=== PATIENT | female | born 1985 | race Caucasian/White ===

== ENCOUNTER 2023-01-16 16:08 | Outpatient (AMB) | payer OTHER, SELFPAY ==
--- NOTE | 2023-01-16 16:29 | AM.OFFWIN_ITS ---
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 She is active . Woke up this morning with redness in the right eye. Mucoid discharge from the eye. Does not wear contact lenses. Does not report any blurring of vision. PFSH Social History Patient Tobacco Use Status: Never used Tobacco Physical Exam Vital Signs: Last Vital Signs Temp 97.9 F 01/16/23 16:33 Pulse 91 01/16/23 16:33 BP 120/72 01/16/23 16:33 Pulse Ox 98 01/16/23 16:33 Oxygen Delivery Method Room Air 01/16/23 16:33 BMI result Body Mass Index 28.3 Eyes Other: Right eye: Bulbar conjunctiva is congested, cornea is clear. AC is clear. No digital tenderness. Assessment & Plan Assessment & Plan (1) Conjunctivitis: Code(s): H10.9 - Unspecified conjunctivitis Plan: Erythromycin oph ointment has been prescribed. If sx do not improve to follow up here. Medications: New erythromycin 0.5 inches ophthalmic (eye) TID 1 g 0RF Coding Level of Care Code Est Pt Level 3 (32229) Diagnoses Conjunctivitis H10.9
[2023-01-16 16:33] VITALS: BP 120/72; PULSE 91; TEMP 36.6; O2SAT 98; BMI 28.3
== END 2023-01-16 16:47 | disposition home or self-care (01) ==
PROVIDERS: Visit Provider Internal Medicine
DX: H10.9 Unspecified conjunctivitis (principal)
CPT/HCPCS: 99213

== ENCOUNTER 2023-01-18 15:35 | Outpatient (AMB) | payer OTHER, SELFPAY ==
[2023-01-18 16:02] VITALS: BP 120/70; PULSE 84; TEMP 36.9; O2SAT 99; BMI 28.0
--- NOTE | 2023-01-18 16:02 | MHC.OFFWIV ---
Intake Vital Signs 01/18/23 16:02 Height 5 ft 7 in Weight 179 lb BMI 28.0 BP 120/70 Blood Pressure Location Rt brachial Position Sitting Pulse 84 Pulse Source Pulse Oximeter Temp 98.5 F Temp Source Temporal Artery Scan Pulse Oximetry (%) 99 Oxygen Delivery Method Room Air Intake Visit Reasons: EST/congestion, coughing up blood(lobby) Intake Note: pt is here today for congestion,coughing up blood started yesterday but been sick since last Patient Tobacco Use Status: Never used Tobacco Allergies No Known Allergies Allergy (Verified 01/18/23 16:04) Do you need a note to return to daycare/school/sports/work: Yes HPI HPI Comments History of Present Illness Details The patient presents to urgent care for evaluation of cold symptoms x1 week. She states that she has nasal congestion, runny nose cough and is concerned about her asthma. The cough is keeping her up at night no recent fever chills. PFSH Social History Patient Tobacco Use Status: Never used Tobacco Review of Systems Const Reports body aches, Reports fatigue, Reports headache(s) and Reports malaise ENT Denies dizziness, Reports headache(s), Reports nasal congestion and Reports sore throat Card Denies rapid heart rate, Denies dyspnea and Denies dyspnea on exertion Resp Denies dyspnea and Denies dyspnea on exertion GI Denies dyspepsia and Denies heartburn Musc Denies arthralgias and Denies muscle cramps Neuro Denies dizziness, Reports headache(s), Denies focal weakness and Denies Other visual disturbances Endo Reports fatigue Physical Exam Vital Signs: Last Vital Signs Temp 98.5 F 01/18/23 16:02 Pulse 84 01/18/23 16:02 BP 120/70 01/18/23 16:02 Pulse Ox 99 01/18/23 16:02 Oxygen Delivery Method Room Air 01/18/23 16:02 BMI result Body Mass Index 28.0 Const General: healthy appearing and no acute distress HEENT Mouth: Normal oral and palatal mucosa present Resp Effort & Inspection: normal respiratory effort and able to speak in complete sentences Auscultation: clear to auscultation bilaterally Cardio Rate: regular rate Rhythm: regular rhythm Assessment & Plan Assessment & Plan (1) URI (upper respiratory infection): Code(s): J06.9 - Acute upper respiratory infection, unspecified Plan A/P - URI Discussed etiology of URI and lack of role of antibiotics in treating viral illnesses. Discussed typical course of illness and supportive measures. Fluids, rest, motrin or tylenol prn fevers/myalgias. OK to use sudafed for congestion and cough. Will prescribe cough suppressant Medications: New benzonatate 100 mg PO TID PRN 14 caps 0RF cough codeine-guaifenesin 10-100 mg/5 mL 5 mL PO Q6H PRN 120 mL 0RF allergy symptoms Coding Level of Care Code Est Pt Level 3 (29227) Diagnoses URI (upper respiratory infection) J06.9
== END 2023-01-18 17:02 | disposition home or self-care (01) ==
PROVIDERS: Visit Provider Emergency Medicine
DX: J06.9 Acute upper respiratory infection, unspecified (principal)
CPT/HCPCS: 99213

== ENCOUNTER 2024-01-29 14:54 | Outpatient (AMB) | payer OTHER, SELFPAY ==
--- NOTE | 2024-01-29 15:15 | A.OFFPC_ITS ---
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 Intake Note: establish care Is last menstrual period known: Yes Last menstrual period: 01/31/24 Post menopausal: No Patient : No Allergies acetaminophen [From Vicodin] Allergy (Mild, Verified 01/29/24 15:17) Rash hydrocodone [From Vicodin] Allergy (Mild, Verified 01/29/24 15:17) Rash Penicillins Allergy (Verified 01/29/24 15:17) Hallucinations Medication List - Last Reconciled 01/29/24 by Ranulfo River MD albuterol sulfate 90 mcg/actuation 2 puffs inhalation Q4H PRN cetirizine 10 mg PO DAILY fluticasone propionate 44 mcg/actuation 2 puffs inhalation BID montelukast 10 mg PO DAILY Tobacco use date assessed: 01/29/24 Dental Screening Dental Screen Date: 01/29/24 Did you have a dental visit in the last 12 months?: Yes Did you have a dental problem in the last 6 months where you did not have access to dental care?: No Was dental information given to patient?: Patient has dentist HPI 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 ?? [facility]. Last office visit/CPE:? 1 yr Acute issue(s):? L thigh nerve pain Numbness ?? PMHx:? Mild/Moderate asthma, Allergies. Heart Murmur, Palpitations SurgHx:? L knee meniscus 2009. Dev Septum Nasal surgery. FHx:? Sister Juan Francisco P White syndrome. Dad: Seizures. GM: Thyroid. SocHx:?Quit Cigs 2014 and still Vapes, EtOH 1-2 beers on a Fri or Sat. No drugs PFSH Medical History (Updated 01/29/24 @ 15:58 by Ranulfo River MD) Herniated intervertebral disc of lumbar spine Deviated nasal septum Nasal congestion with rhinorrhea Asthma Meralgia paresthetica, left lower limb Surgical History (Updated 01/29/24 @ 15:34 by Jakub Lynn CMA) H/O lateral meniscus repair of left knee Social History (Updated 01/29/24 @ 15:34 by Jakub Lynn [facility]) Patient Tobacco Use Status: Never used Tobacco e-Cigarette/Vaping Use: Currently Using Second Hand Smoke Exposure: Yes Use of substances other than those prescribed or required for medical reasons: No Patient : No service: Yes Current occupational status: employed 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 1. Little interest or pleasure in doing things: several days 2. Feeling down, depressed, or hopeless: not at all 3. Trouble falling or staying asleep, or sleeping too much: more than half the days 4. Feeling tired or having little energy: several days 5. Poor appetite or overeating: several days 6. Feeling bad about yourself - or that you are a failure or have let yourself or your family down: not at all 7. Trouble concentrating on things, such as reading the newspaper or watching television: several days 8. Moving or speaking so slowly that other people could have noticed. Or the opposite - being so fidgety or restless that you have been moving around a lot more than usual: several days 9. Thoughts that you would be better off or of hurting yourself in some way: not at all Total score: 7 Source: Developed by Drs. Raymundo Fleming, Hilary Abebe, Varun Bravo and colleagues, with an educational louise from [employer]. Thrive Questionnaire Date Thrive assessed: 01/29/24 I am a: Patient What is your living situation today?: I have a steady place to live Within the past 12 months, did the food you bought not last and you didn't have the money to get more?: Never true Within the past 12 months, did you worry whether your food would run out before you got money to buy more?: Never true Do you have trouble paying for medicines?: No Do you have trouble getting transportation to medical appointments?: No Do you have trouble paying your heating and electricity bill?: No Do you have trouble taking care of your child, family member or friend?: No Do you have trouble with day-to-day activities such as bathing, preparing meals, shopping, managing finances, etc.?: No Are you currently unemployed and looking for a job?: No Are you interested in more education?: No Please select the resources that you would like help with: None Currently or been in a relationship where the following occur: No concerns reported THRIVE Score: 0 AUDIT C Alcohol Use Questionnaire (AUDIT-C) 1. How often do you have a drink containing alcohol?: 2-4 times a month 2. How many drinks containing alcohol do you have on a typical day when you are drinking?: 1 or 2 3. How often do you have six or more drinks on one occasion?: Never Total Score: 2 ERIC-7 AMB Questionnaire ERIC-7 Date ERIC - 7 assessed: 01/29/24 Feeling nervous, anxious, or on edge: 2 = More than half the days Not being able to stop or control worryin = Several days Worrying too much about different things: 1 = Several days Trouble relaxin = Several days Being so restless that it is hard to sit still: 0 = Not at all Becoming easily annoyed or irritable: 0 = Not at all Feeling afraid as if something awful might happen: 0 = Not at all Total ERIC-7 score (0-4 normal; 5-9 mild; 10-14 moderate; 15-21 severe): 5 Source: Developed by Drs. Raymundo Fleming, Hilary Abebe, Varun Bravo and colleagues, with an educational louise from [employer]. ERIC-7 Assessment Billing ERIC-7 Assessment Tool: ERIC-7 Assessment 16392 Review of Systems Const Denies chills, Denies fatigue, Denies fever(s), Denies headache(s) and Denies weakness ENT Denies dizziness and Denies headache(s) Card Denies chest pain, Denies lightheadedness, Denies dyspnea and Denies other (Palpitations) Resp Denies cough, Denies dyspnea, Denies wheezing and Denies other ( shortness of breath) Musc Denies numbness and Denies tingling Neuro Denies dizziness, Denies headache(s), Denies numbness, Denies tingling, Denies paresthesias and Denies weakness Psych Denies anxiety and Denies depression Endo Denies fatigue Aller/Immun Denies wheezing Physical exam (Primary Care) Vital Signs: Last Vital Signs Pulse 97 01/29/24 15:25 Resp 16 01/29/24 15:25 BP 100/60 01/29/24 15:25 Pulse Ox 100 01/29/24 15:25 Oxygen Delivery Method Room Air 01/29/24 15:25 BMI result Body Mass Index 29.6 Tobacco/Smoking Status: Tobacco use Status Tobacco use date assessed 01/29/24 01/29/24 15:30 Patient Tobacco Use Status Never used Tobacco 01/29/24 15:34 e-Cigarette/Vaping Use Currently Using 01/29/24 15:34 PHQ-9: PHQ-9 Score PHQ-9: Total score 7 01/29/24 15:30 Thrive Assessment: Date of Thrive Assessment Date Thrive assessed 01/29/24 01/29/24 15:35 Currently or been in a relationship where the following occur: No concerns reported Const General: no acute distress and well developed Nutritional Appearance: well nourished Orientation/consciousness: patient oriented x3 HENMT Head: Yes normocephalic and Yes atraumatic Eyes General: appearance normal, both eyes and all related structures Pupils: Equal, round and reactive pupils present EOM: EOMs intact bilaterally Resp Effort & Inspection: normal respiratory effort Auscultation: clear to auscultation bilaterally Cardio Rate: regular rate Rhythm: regular rhythm Heart sounds: S1 normal heart sound present, S2 normal heart sound present, no gallops, no murmurs and no rubs Neuro General: patient oriented x3 and gait normal Cranial nerves: Yes Equal, round and reactive pupils present Psych Affect: normal affect Coding Level of Care Code New Pt Level 3 (72400) Diagnoses Left thigh pain M79.652 Asthma J45.909 Deviated nasal septum J34.2 Laboratory exam ordered as part of routine general medical examination Z00.00 Additional Codes ERIC-7 Assessment Billing - ERIC-7 Assessment Tool: ERIC-7 Assessment 86089 ([id number]) Assessment & Plan Assessment & Plan (1) Left thigh pain: Code(s): M79.652 - Pain in left thigh Category: Medical Plan: Patient?with?a?history?of?lumbar?disc?injury?has?some?ante rolateral?thigh?pain?and?numbness. Possible?disc injury?or?femoral?nerve?compression Will?have?her?use?meloxicam?and?start?physical?therapy Ice/heat If?not?improving?will?image?and?consider?referral?f or?injection?therapy?other?modalities (2) Asthma: Code(s): J45.909 - Unspecified asthma, uncomplicated Category: Medical Plan: Currently?stable Continue?current?medication?regimen (3) Deviated nasal septum: Code(s): J34.2 - Deviated nasal septum Category: Medical Plan: Stable (4) Laboratory exam ordered as part of routine general medical examination: Code(s): Z00.00 - Encounter for general adult medical examination without abnormal findi ngs Category: Medical Plan: Check?labs Orders: Orders TSH reflex Free T4 Today Z00.00 - Encounter for general adult medical examination without abnormal findings UA and rflx microscopic Today Z00.00 - Encounter for general adult medical examination without abnormal findings Comprehensive [place]. Panel Fast Today Z00.00 - Encounter for general adult medical examination without abnormal findings Lipid Panel Today Z00.00 - Encounter for general adult medical examination without abnormal findings Microalbumin, Random (w Creat) Today I10 - Essential (primary) hypertension PT Evaluation and Treatment Today M54.50 - Low back pain, unspecified, M79.652 - Pain in left thigh Medications: New meloxicam 15 mg PO DAILY 30 days 30 tabs 2RF
[2024-01-29 15:25] VITALS: BP 100/60; PULSE 97; RESP 16; O2SAT 100; BMI 29.6
== END 2024-01-29 15:57 | disposition home or self-care (01) ==
PROVIDERS: PCP Family Medicine; Visit Provider Family Medicine
DX: M79.652 Pain in left thigh (principal); J45.909 Unspecified asthma, uncomplicated; J34.2 Deviated nasal septum; Z00.00 Encounter for general adult medical examination without abnormal findings

== ENCOUNTER → 2024-01-29 14:54 | Outpatient (BNVA) | payer OTHER, SELFPAY | PROVIDERS: PCP Family Medicine; Visit Provider Family Medicine | DX: Z00.00 Encounter for general adult medical examination without abnormal findings (principal); M79.652 Pain in left thigh; J45.909 Unspecified asthma, uncomplicated; J43.2 Centrilobular emphysema | CPT/HCPCS: 96127; 99202 ==

== ENCOUNTER 2024-03-05 09:10 | Outpatient (REF) | payer OTHER, SELFPAY ==
[2024-03-05 11:16] LABS: Appearance Urine Clear; Color Urine Yellow; Glucose Urine UA Negative (Negative); Leukocyte Esterase Urine Negative (Negative); Nitrite Urine Negative (Negative); Specific Gravity - Urine <= 1.005 (1.005-1.025); Urine Blood Negative (Negative); Urine Ketones Negative (Negative); Urine Protein Negative (Neg-Trace)
[2024-03-05 11:33] LABS: Alanine Aminotransferase 15 U/L (0-31); Albumin Level 4.2 g/dL (3.5-5.0); Alkaline Phosphatase 44 U/L (39-117); Anion Gap 7 (12-20); Aspartate Amino Transferase 22 U/L (5-31); Bilirubin Total 0.6 mg/dL (0.0-1.0); Blood Urea Nitrogen 9 mg/dL (9-16); Calcium 8.4 mg/dL (8.4-10.2); Carbon Dioxide 29 mmol/L (22-29); Chloride 106 mmol/L (96-108); Cholesterol 170 mg/dL (<200); Estimated Glomerular Filt Rate > 60; Glucose Fasting 80 mg/dL (60-99); HDL Cholesterol 66 mg/dL (>40); LDL Cholesterol Calculated 94 mg/dL (<100); Potassium 3.6 mmol/L (3.3-5.1); Sodium 138 mmol/L (135-145); Total Protein 6.9 g/dL (6.5-8.0); Triglycerides 52 mg/dL (<150)
[2024-03-05 11:52] LABS: TSH reflex Free T4 1.32 uIU/mL (0.32-4.0)
[2024-03-05 12:00] LABS: Creatinine Urine 46.75 mg/dL; Microalbumin Urine < 5.0 mg/L
== END 2024-03-05 09:11 | disposition home or self-care (01) ==
LOC: HO.WFDLDS 09:10
PROVIDERS: Visit Provider Family Medicine
DX: Z00.00 Encounter for general adult medical examination without abnormal findings (principal); I10 Essential (primary) hypertension
CPT/HCPCS: 36415; 80053; 80061; 81003; 82570; 84443

== ENCOUNTER 2024-04-24 15:37 | Outpatient (AMB) | payer OTHER, SELFPAY ==
--- NOTE | 2024-04-24 15:38 | A.OFFPC_ITS ---
Vital Signs 04/24/24 15:43 Height 5 ft 7 in Weight 189 lb 6 oz BMI 29.7 BP 118/68 Blood Pressure Location Lt brachial Position Sitting Respiration 12 Pulse 72 Pulse Source Pulse Oximeter Temp 96.8 F Temp Source Oral Pulse Oximetry (%) 99 Oxygen Delivery Method Room Air Intake Visit Reasons: CPE with f/u labs and health maint. Intake Note: annual cpe with labs follow up, patient also needs refill on meds, and patient need referral for a pft. Spray Blender Required: No Allergies acetaminophen [From Vicodin] Allergy (Mild, Verified 04/24/24 15:52) Rash hydrocodone [From Vicodin] Allergy (Mild, Verified 04/24/24 15:52) Rash Penicillins Allergy (Verified 04/24/24 15:52) Hallucinations meloxicam Adverse Reaction (Mild, Verified 04/24/24 15:57) nightmares Medication List - Last Reconciled 04/24/24 by DALIA Guerrero- albuterol sulfate 90 mcg/actuation 2 puffs inhalation Q4H PRN cetirizine 10 mg PO DAILY montelukast 10 mg PO DAILY Tobacco use date assessed: 04/24/24 Dental Screening Dental Screen Date: 04/24/24 Did you have a dental visit in the last 12 months?: Yes Did you have a dental problem in the last 6 months where you did not have access to dental care?: No Was dental information given to patient?: Patient has dentist HPI HPI Comments History of Present Illness Details 38 y/o F with Mild/Moderate asthma, Oleg rgies. Heart Murmur, Palpitations, lumbar disc herniation SurgHx: L knee meniscus 2009. Dev Septum Nasal surgery. FHx: Sister Juan Francisco P White syndrome. Dad: Seizures. GM: Thyroid. SocHx: Quit Cigs 2014 and still Vapes, EtOH 1-2 beers on a Fri or Sat. No drugs Health Maintenance Tdap UTD Flu UTD Pap last one 2 years ago, normal Specialists PT The patient is a 38-year-old female presenting for a physical exam and asthma management. - Asthma was well-managed with albuterol and montelukast. The patient previously used daily inhalers but found current medications sufficient. Needs annual PFT for . - Seasonal allergies are controlled usin g montelukast and cetirizine. - Palpitations occur weekly [facility] triggers, with prior comprehensive cardiac evaluations being normal. Recent lab work showed normal potassium levels. Has had holter, stress, right heart cath and sleep study all WNL - The patient has a noted heart murmur, with prior investigations showing no significant findings. - Chronic back pain with nerve damage in the L thigh. Recently initiated physical therapy with no definitive improvement yet. used meloxicam, this caused nightmares, so stopped. - The patient is gradually reducing vapi ng to cease use entirely. - Sleep disturbances were noted, attribu will to medication and past illnesses. No active use of meloxicam due to adverse reactions. Review of Systems - Neurological: Reports sleep disturbanc es and nightmares potentially linked to medication use. - Musculoskeletal: Denies any noticeable change in back pain or associated symptoms. - Cardiovascular: Reports weekly episode s of palpitations. - Respiratory: Denies current uncontroll ed asthma symptoms, using albuterol as needed. - Dermatological: Denies new skin lesion s or changes. Physical Exam General: Well developed, well nourished, in no acute distress. Appears stated age. Head: Normocephalic, atraumatic. Eyes: Pupils are equal, round and reactive to light and accommodation. Conjunctivae are clear. Vision grossly normal. Ears: TMs clear AU, EACS WNL Nose: Patent, without discharge. Neck: Supple, no adenopathy or thyromegaly. Breast: Edu on SBE. Patient advised to perform self breast exams regularly. Lungs: Clear to auscultation bilaterally. No rales, rhonchi or wheeze noted. Good air flow in all sandhu. Heart: Regular rate and rhythm. Murmur noted. No clicks, rubs or gallops are noted. Abdomen: Bowel sounds present in all quadrants. The abdomen is soft, nontender, with no masses or organomegaly noted. Mild tenderness noted upon palpation of the liver area. : Deferred. Reviewed recommendations for routine H[employer]ESS [employer]ER. Referral for women's h ealth screening provided. Pulses: Peripheral pulses are equal and palpable bilaterally. Extremities: No clubbing, cyanosis nor edema is noted. Neurologic: Gait and station normal. Cranial Nerves 2-12 intact. Motor strength grossly symmetrical and intact. No sensory loss. Balance normal. Skin: No rashes, ulcers, or lesions noted. Turgor is good. Skin color is good. Hair and nails are without abnormalities. Psych: Normal eye contact, affect and mood appropriate, and normal interactions. Patient is alert and appropriate to context. Results Labs 03/05/24 normal CMP, Lipid profile, TSH, UA Discussion Notes Discussion with the patient was mainly focused on asthma management, referrals for further tests, and medication refills. For asthma, the patient was informed about using a new inhaled steroid similar to previous treatments, with instructions to use it only as needed. The importance of rinsing the mouth post- use was highlighted. Regarding the palpitations, tests indicated no major issues , but periodic monitoring remains essential. The patient was advised on the necessity of completing annual pulmonary function tests, per request. The patient agreed to continue physical therapy for back and nerve pain management, with future referral options discussed if symptoms persist. Smoking cessation was touched on, highlighting the benefits and encouraging continuation of efforts to quit. The patient was also provided information about a patient portal for streamlined communication and prescription refills. Assessment and Plan 1. Asthma: Asthma management includes al buterol and montelukast. An additional inhaled steroid has been prescribed for use as needed. Annual pulmonary function testing is arranged. 2. Palpitations: Regular heart monitorin g continues with reassurance provided based on normal past cardiac workups and labs. 3. Heart Murmur: No current issues; cont inuous monitoring is advised. 4. Back Pain and Nerve Damage: Physical therapy has commenced; consider referral if symptoms remain unresolved. 5. Vaping Use: Continued reduction of ni cotine consumption was encouraged with plans for cessation.6 6. Seasonal Allergies: Controlled effect ively with current therapy. Patient Instructions - Follow up with pulmonary function test s and await notified scheduling. - Use the new inhaler as prescribed, rin sing the mouth after use. - Continue efforts to stop vaping and as k for support if required. - Resume or maintain physical therapy se ssions as recommended. - Monitor symptoms and seek guidance if experiencing new or changing symptoms. - Utilize the patient portal for communi cation and prescription refills. RTO 6 mo asthma fu sooner PRN Consent The patient provided informed consent for the proposed changes in medication regimens and pending tests. Risks and benefits were reviewed, including potential reactions to new inhaled steroids and associated lifestyle modifications. It was emphasized that the patient should contact the office with any questions or significant changes in health status. Consent was willingly given after discussing alternatives and expectations. Patient was informed and verbally consented to the use of an ambient scribe for clinic note documentation during this visit. [facility] Medical History (Updated 04/24/24 @ 16:02 by Mague Doss, [facility]) Asthma Deviated nasal septum Herniated intervertebral disc of lumbar spine Meralgia paresthetica, left lower limb Nasal congestion with rhinorrhea Surgical History (Updated 01/29/24 @ 15:34 by Jakub Lynn [facility]) H/O lateral meniscus repair of left knee Social History (Updated 01/29/24 @ 15:34 by SHITAL Mckeon) Patient Tobacco Use Status: Never used Tobacco e-Cigarette/Vaping Use: Currently Using Second Hand Smoke Exposure: Yes service: Yes Current occupational status: employed 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 1. Little interest or pleasure in doing things: not at all 2. Feeling down, depressed, or hopeless: not at all 3. Trouble falling or staying asleep, or sleeping too much: not at all 4. Feeling tired or having little energy: not at all 5. Poor appetite or overeating: not at all 6. Feeling bad about yourself - or that you are a failure or have let yourself or your family down: not at all 7. Trouble concentrating on things, such as reading the newspaper or watching television: not at all 8. Moving or speaking so slowly that other people could have noticed. Or the opposite - being so fidgety or restless that you have been moving around a lot more than usual: not at all 9. Thoughts that you would be better off or of hurting yourself in some way: not at all Total score: 0 Depression Screening Interpretation: Negative Depression Screening Done: Yes 76984 - PHQ-9 Billing: Yes Source: Developed by Drs. Raymundo Fleming, Hilary Abebe, Varun Bravo and colleagues, with an educational louise from [employer]. Thrive Questionnaire Date Thrive assessed: 03/06/25 I am a: Patient What is your living situation today?: I have a steady place to live Within the past 12 months, did the food you bought not last and you didn't have the money to get more?: Never true Within the past 12 months, did you worry whether your food would run out before you got money to buy more?: Never true Do you have trouble paying for medicines?: No Do you have trouble getting transportation to medical appointments?: No Do you have trouble paying your heating and electricity bill?: No Do you have trouble taking care of your child, family member or friend?: No Do you have trouble with day-to-day activities such as bathing, preparing meals, shopping, managing finances, etc.?: No Are you currently unemployed and looking for a job?: No Are you interested in more education?: No Please select the resources that you would like help with: None Currently or been in a relationship where the following occur: No concerns reported THRIVE Score: 0 AUDIT C Alcohol Use Questionnaire (AUDIT-C) 1. How often do you have a drink containing alcohol?: Never 3. How often do you have six or more drinks on one occasion?: Never Total Score: 0 Score Reviewed/Action Taken: Yes ERIC-7 AMB Questionnaire ERIC-7 Date ERIC - 7 assessed: 04/24/24 Feeling nervous, anxious, or on edge: 0 = Not at all Not being able to stop or control worryin = Not at all Worrying too much about different things: 0 = Not at all Trouble relaxin = Not at all Being so restless that it is hard to sit still: 0 = Not at all Becoming easily annoyed or irritable: 0 = Not at all Feeling afraid as if something awful might happen: 0 = Not at all Total ERIC-7 score (0-4 normal; 5-9 mild; 10-14 moderate; 15-21 severe): 0 Source: Developed by Drs. Raymundo Fleming, Hilary Abebe, Varun Bravo and colleagues, with an educational louise from [employer]. ERIC-7 Assessment Billing ERIC-7 Assessment Tool: ERIC-7 Assessment 62712 ACT Questionnaire In the past 4 weeks, how much of the time did your asthma keep you from getting as much done at work, school or at home?: None of the time During the past 4 weeks, how often have you had shortness of breath?: Not at all During the past 4 weeks, how often did your asthma symptoms wake you up at night or earlier than usual in the morning?: Not at all During the past 4 weeks, how often have you had to use your rescue inhaler or nebulizer medication?: Not at all How would you rate your asthma control during the past 4 weeks?: Completely controlled ACT Interpretation: Negative Score: 25 Physical exam (Primary Care) Vital Signs: Last Vital Signs Temp 96.8 F 04/24/24 15:43 Pulse 72 04/24/24 15:43 Resp 12 04/24/24 15:43 BP 118/68 04/24/24 15:43 Pulse Ox 99 04/24/24 15:43 Oxygen Delivery Method Room Air 04/24/24 15:43 BMI result Body Mass Index 29.7 Tobacco/Smoking Status: Tobacco use Status Tobacco use date assessed 04/24/24 04/24/24 15:43 Patient Tobacco Use Status Never used Tobacco 04/24/24 15:39 e-Cigarette/Vaping Use Currently Using 04/24/24 15:39 PHQ-9: PHQ-9 Score PHQ-9: Total score 0 04/24/24 15:39 Depression Screening Interpretation: Negative Thrive Assessment: Date of Thrive Assessment Date Thrive assessed 04/24/24 04/24/24 15:39 Currently or been in a relationship where the following occur: No concerns reported Coding Level of Care Code Est Pt Prev Care 18-39y(93669) Diagnoses Encounter for general adult medical examination without abnormal findings Z00.00 Mild intermittent asthma without complication J45.20 Asthma severity: mild Asthma persistence: intermittent Asthma complication type: uncomplicated Left thigh pain M79.652 Chronic left-sided low back pain with left-sided sciatica M54.42; G89.29 Chronicity: chronic Back pain laterality: left Sciatica presence: with sciatica Sciatica laterality: sciatica of left side Palpitations R00.2 Vapes nicotine containing substance Z72.0 Additional Codes ERIC-7 Assessment Billing - ERIC-7 Assessment Tool: ERIC-7 Assessment 15682 ([id number]) PHQ-9 - 62367 - PHQ-9 Billing: Yes ([id number]) Asthma Control Questionnaire - ACT Interpretation: Negative ([id number]) Assessment & Plan Assessment & Plan (1) Encounter for general adult medical examination without abnormal findings: Code(s): Z00.00 - Encounter for general adult medical examination without abnormal findings (2) Asthma: Code(s): J45.909 - Unspecified asthma, uncomplicated Category: Medical Qualifiers: Asthma severity: mild Asthma persistence: intermittent Asthma complication type: uncomplicated Qualified Code(s): J45.20 - Mild intermittent asthma, uncomplicated (3) Left thigh pain: Code(s): M79.652 - Pain in left thigh Category: Medical (4) Low back pain: Code(s): M54.50 - Low back pain, unspecified Category: Medical Qualifiers: Chronicity: chronic Back pain laterality: left Sciatica presence: with sciatica Sciatica laterality: sciatica of left side Qualified Code(s): M54.42 - Lumbago with sciatica, left side; G89.29 - Other chronic pain (5) Palpitations: Code(s): R00.2 - Palpitations Category: Medical (6) Vapes nicotine containing substance: Code(s): Z72.0 - Tobacco use Category: Social Hx Plan . Orders: Orders PFT pulmonary function test Today J45.909 - Unspecified asthma, uncomplicated Referrals PAPER SLITTER Referral Z12.4 - Encounter for screening for malignant neoplasm of cervix Medications: New fluticasone propionate 50 mcg/actuation 1 inh inhalation BID 60 ea 2RF albuterol sulfate 90 mcg/actuation 2 puffs inhalation Q4H PRN 6.7 grams 2RF wheezing cetirizine 10 mg PO DAILY 90 tabs 2RF montelukast 10 mg PO DAILY 90 tabs 2RF Patient Instructions: Health screenings for women You should visit your health care provider from time to time, even if you are healthy. The purpose of these visits is to: Screen for medical issues Assess your risk for future medical problems Encourage a healthy lifestyle Update vaccinations and other preventive care services Help you get to know your provider in case of an illness Information Even if you feel fine, you should still see your provider for regular checkups. These visits can help you avoid problems in the future. For example, the only way to find out if you have high blood pressure is to have it checked regularly. High blood sugar and high cholesterol levels also may not have any symptoms in the early stages. A simple blood test can check for these conditions. There are specific times when you should see your provider or receive specific health screenings. The [place] Preventive Services Task Force publishes a list of recommended screenings. Below are screening guidelines for women ages 18 to 39. BLOOD PRESSURE SCREENING Your blood pressure should be checked at least once every 3 to 5 years if: Your blood pressure is in the normal range (top number less than 120 mm Hg and bottom number less than 80 mm Hg) You don't have risk factors for high blood pressure Ask your provider if you need your blood pressure checked more often if: The top number is 120 to 129 mm Hg or the bottom number is 70 to 79 mm Hg You have diabetes, heart disease, kidney problems, are overweight, or have certain other health conditions You have a first-degree relative with high blood pressure You are Black You had high blood pressure during a If the top number is 130 mm Hg or greater or the bottom number is 80 mm Hg or greater, this is considered stage 1 hypertension. Schedule an appointment with your provider to learn how you can reduce your blood pressure. Watch for blood pressure screenings in your area. Ask your provider if you can stop in to have your blood pressure checked. BREAST CANCER SCREENING Experts do not agree about the benefits of breast self-exams in finding breast cancer or saving lives. Talk to your provider about what is best for you. A screening mammogram is not recommended for most women under age 40. Your provider may discuss and recommend mammograms, MRI scans, or ultrasounds if you have an increased risk for breast cancer, such as: A mother or sister who had breast cancer at a young age (most often starting screening earlier than the age the close relative was diagnosed) You carry a high-risk genetic marker CERVICAL CANCER SCREENING Cervical cancer screening should start at age 21 years unless your provider advises otherwise. After the first test: Women ages 21 through 29 should have a Pap test every 3 years. Exoprts do not agree on whether HPV testing is recommended for this age group. Women ages 30 through 65 should be screened with either a Pap test every 3 years or the HPV test every 5 years or both tests every 5 years (called cotesting ). Women who have been treated for precancer (cervical dysplasia) should continue to have Pap tests for 20 years after treatment or until age 65, whichever is longer. If you have had your uterus and cervix removed (total hysterectomy), and you have not been diagnosed with cervical cancer or precancer (high grade cervical neoplasia), you do not need cervical cancer screening. CHOLESTEROL SCREENING Cholesterol screening should begin at: Age 45 for women with no known risk factors for coronary heart disease Age 20 for women with known risk factors for coronary heart disease Repeat cholesterol screening should take place: Every 5 years for women with normal cholesterol levels More often if changes occur in lifestyle (including weight gain and diet) More often if you have diabetes, heart disease, kidney problems, or certain other conditions DIABETES SCREENING You should be screened for diabetes starting at age 35 and then repeated every 3 years if you have no risk factors for diabetes. Screening may need to start earlier and be repeated more often if you have other risk factors for diabetes, such as: You have a first degree relative with diabetes. You are overweight or have obesity. You have high blood pressure, prediabetes, or a history of heart disease. Screening for diabetes should be done if you are planning to become and you are overweight and have other risk factors such as high blood pressure. DENTAL EXAM Go to the dentist once or twice every year for an exam and cleaning. Your dentist will evaluate if you need more frequent visits. EYE EXAM Have an eye exam every 5 to 10 years before age 40. If you have vision problems, have an eye exam every 2 years or more often if recommended by your provider. You should have an eye exam that includes an examination of your retina (back of your eye) at least every year if you have diabetes. IMMUNIZATIONS Commonly needed vaccines include: Flu shot: get one every year. COVID-19 vaccine: ask your provider what is best for you. Tetanus-diphtheria and acellular pertussis (Tdap) vaccine: have one at or after age 19 as one of your tetanus-diphtheria vaccines if you did not receive it as an adolescent. Tetanus-diphtheria: have a booster (or Tdap) every 10 years. Varicella vaccine: receive 2 doses if you never had chickenpox or the varicella vaccine. Hepatitis B vaccine: receive 2, 3, or 4 doses, depending on your exact circumstances. Measles, mumps, and rubella (MMR) vaccine: receive 1 to 2 doses if you are not already immune to MMR. Your provider can tell you if you are immune. Ask your provider about the human papillomavirus (HPV) vaccine if: You have not received the HPV vaccine in the past You have not completed the full vaccine series (you should catch up on this shot) Ask your provider if you should receive other immunizations if you have certain health problems that increase your risk for some diseases such as pneumonia. INFECTIOUS DISEASE SCREENING Women who are sexually active should be screened for chlamydia and gonorrhea up until age 25. Women 25 years and older should be screened for chlamydia and gonorrhea if at high risk. Screening for hepatitis C: All adults ages 18 to 79 should get a one-time test for hepatitis C. people should be screened at every . Screening for human immunodeficiency virus (HIV): All people ages 15 to 65 should get a one-time test for HIV. Depending on your lifestyle and medical history, you may also need to be screened for infections such as syphilis and HIV, as well as other infections. PHYSICAL EXAM All adults should visit their provider from time to time, even if they are healthy. The purpose of these visits is to: Screen for disease Assess your risk of future medical problems Encourage a healthy lifestyle Update your vaccinations and other preventive care services Maintain a relationship with a provider in case of an illness Your height, weight, and BMI should be checked at every exam. During your exam, your provider may ask you about: Depression and anxiety Diet and exercise Alcohol and tobacco use Safety issues, such as using seat belts, smoke detectors, and intimate partner violence Your medicines and risk for interactions SKIN SELF-EXAM Your provider may check your skin for signs of skin cancer, especially if you're at high risk, such as if you: Have had skin cancer before Have close relatives with skin cancer Have a weakened immune system OTHER SCREENING Talk with your provider about colon cancer screening if you have a strong family history of colon cancer or polyps, or if you have had inflammatory bowel disease or polyps yourself. Routine bone density screening of women under 40 is not recommended. Walk-In Care (Urgent Care): [facility] Make it Easy Walk-in for urgent medical issues such as: ? Seasonal Allergies ? Insect Bites ? Cough ? Diarrhea ? Acute Asthma Attacks ? Back, Knee or Joint Pain ? Ear Infection ? Fever without a Rash ? Headaches ? Nausea ? [place], Rash or Skin Irritation ? Sore Throat ? Sports Physicals ? Vomiting Most insurances are accepted. Patients do not need to be part of the [facility] to seek care at the walk-in clinic. Locations [address], [place] [address] ? [phone] [facility] Walk-In Care in [place] provides services to ages 18 and over. Open Sunday-Sunday: 8 a.m. to 5 p.m. and Sunday: 9 a.m. to 3 p.m.* *Hours may vary due to staffing availability. To confirm Walk-In Care hours in [place], please call [phone]. [address] [place] [address] ? [phone] [facility] Walk-In Care in [place] provides services to ages 12 and over. Open Sunday-Sunday: 8 a.m. to 5 p.m. Hours may vary due to staffing availability. To confirm Walk-In Care hours in [place], please call [phone]. LABORATORY SERVICES: [facility] Lab ? Primary Location [address] [place] [address] Sunday through Sunday 6:00 AM ? 5:00 PM Sunday 7:00 AM ? 11:00 AM* [phone] The [facility] Lab is centrally located near the front entrance of the [facility] for easy outpatient access. Convenient parking is provided for outpatients. *Hours may vary due to staffing availability. To confirm Laboratory hours for any location, please call [phone]. Offsite Location For your convenience, we offer offsite laboratory draw stations at the following locations: [address] [place] [address] ? [address], [address] Sunday through Sunday 7:30 AM ? 1:00 PM* [phone] *Hours may vary due to staffing availability. To confirm Laboratory hours for any location, please call [phone]. [place] ? [address] Sunday through Sunday 6:00 AM ? 3:30 PM* Sunday 6:30 AM ? 3 PM* [phone] *Hours may vary due to staffing availability. To confirm Laboratory hours for any location, please call [phone] [place] [address] Sunday through Sunday 7:30 AM ? 4:00 PM* [phone] *Hours may vary due to staffing availability. To confirm Laboratory hours for any location, please call [phone]. [facility] Sunday through 9:00 AM ? 4:00 PM* *Hours may vary due to staffing availability. To confirm Laboratory hours for any location, please call [phone]. Appointments are not necessary. Walk-ins are welcome. Like all the departments throughout the [facility], our Lab undergoes frequent reviews to ensure the quality and accuracy of test results, and our staff takes special pride in its status as a nationally accredited facility. Patient Portal: ONE PATIENT. ONE RECORD. BETTER CARE. [facility] has a fully integrated, cutting- edge mobile electronic health information system that has revolutionized the way we care for our patients and manage our organization. This system improves communication and coordination enabling us to provide safe, higher-quality care, and an overall positive experience for staff and patients. Our first priority, as always, is to deliver the highest quality care possible. The system is running in the background supporting that priority. This portal is for all [facility] services and practices. If you are experiencing any technical difficulties with enrolling or logging into the Patient Portal please complete the [facility] Patient Portal Technical Support Form. [facility] now offers a new secure on-line interactive tool for patients to review their health information ? ?Patient Portal. This interactive web portal will enable patients and their families to take an active role in their care by providing easy, secure access to their health information via the internet. The Patient Portal provides patients with instant access to their health information, including laboratory results, medications, allergies, demographic information, visit history, and more. In addition to managing their own care, parents and health care proxies with authorized consent will appreciate the ability to access the records of those individuals for whom they provide care. Please note: if you wish to gain access (Proxy) to another patient?s portal, you will be required to come to the Medical Records Department in person at [facility]. Both the patient giving proxy access and the proxy will need to provide photo identification and complete the appropriate authorization. The Patient Portal also allows track their appointments online. The [facility] Patient Portal also saves patients time by allowing them to submit updates to their demographic and contact information prior to their visits. Portal email notifications will also alert patients to any new activity on their portal, such as test results and new appointments. In order to initially enroll in the [facility] Patient Portal, you will need to enter some required information including the following: * your [facility] Medical Record number * your personal home email address * name * date of Please note: In order to enroll in the [facility] Patient Portal, we need to have your email address on file in your electronic medical record. ?The email address needs to be specific for one person (yourself) in order for your Portal enrollment to be successful. ?You can update your email address in person with our Registration staff when you are registering for a hospital visit. ?Otherwise, you will need to come to the Health Information Management (Medical Records) Department at [facility]. ?We are open from Sunday ? Sunday from 7:30 a.m. ? 4:30 p.m. ?You will be required to present a photo id. Once you have successfully enrolled in the Patient Portal, you will receive a one-time user id and password for the Portal, sent to your email address. ?This will allow you to log into the Patient Portal within 99 hrs and reset your own logon id and password, and define personal security questions. ?Once your permanent login and password have been set, you can log into the [facility] Patient Portal at any time via the blue button above or from the Portal Logon button on any page of the [facility] website. [facility] encourage all of our patients to enroll in Patient Portal as it presents a valuable opportunity for patients and their families to actively participate in their care and stay healthy Welcome to [facility]. ?We look forward to working with you.
[2024-04-24 15:43] VITALS: BP 118/68; PULSE 72; RESP 12; TEMP 36; O2SAT 99; BMI 29.7
--- OUTSIDE RECORDS SUMMARY | 2024-04-24 19:04 | XMS_ITS | Continuity of Care Document ---
Author Name [facility] Organization [facility] Care Team Providers [employer] Consultant Name Role Phone [facility] Unavailable Unavailable Problems Combined list of problems from Department of Defense and Veterans Affairs facilities. It does not include entries that were removed or entered in error. Problem Status Onset Date Problem Type Date of Resolution Comments Source Asthma Active 02/26/19 25 Diagnosis 0310M-AF- C-[facility]th [facility] Encounter for other administrative examinations Active 02/26/19 25 Diagnosis 0310M-AF- C-[facility]th [facility] LBP - Low back pain Active 09/10/19 24 Diagnosis 0310C-AF- C-[facility]th [facility] Pain in left leg Active 09/10/19 24 Diagnosis 0310C-AF- C-[facility]th [facility] Nicotine dependence Active 09/10/19 24 Diagnosis 0310C-AF- C-[facility]th [facility] Asthma Active 09/10/19 24 Diagnosis 0310C-AF- C-[facility]th [facility] Palpitations Active 09/10/19 24 Diagnosis 0310C-AF- C-[facility]th [facility] Exposure to polluted air Active 09/10/19 24 Diagnosis 0310C-AF- C-[facility]th [facility] 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, 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, 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 (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) Active 09/10/19 24 Diagnosis 0310C-AF- C-[facility]th [facility] Bilateral tinnitus Active 08/17/19 23 Condition [id number]-AF- C-[facility] Personal history of deployment Active Condition [facility] Occupational exposure to other air contaminants Active Condition [facility] Segmental and somatic dysfunction of lumbar region Active Condition [facility] Radiculopathy, lumbar region Active Condition [facility] visit for: administrative purpose Inactive Condition [facility] cellulitis of left foot Inactive Condition [facility] cellulitis Inactive Condition [facility] Counseling For Supervised Exercise Program Active Condition [facility] upper back pain Inactive Condition [facility] Patient Education Asthma Exposure To Triggers Active Condition [facility] Patient Education Asthma Peak Flow Monitor Active Condition DoD Patient Education Asthma Metered Dose Inhaler Active Condition [facility] Patient Education - Action Plan Asthma Active Condition [facility]D Patient Education - Asthma Active Condition [facility] Cervical Pap Smear Inactive Condition Do D tobacco use Active Condition [facility] disorder of tonsil tonsillitis Inactive Condition DoD visit for: physical medical evaluation board (MEB) Active Condition DoD urinary frequency increased Active Condition DoD bronchospasm Inactive Condition DoD asthma Active Condition DoD allergic rhinitis Active Condition DoD difficulty breathing (dyspnea) Active Condition DoD phase of life or life circumstance problem Active Condition DoD palpitations Active Condition DoD Murmurs Active Condition DoD insomnia Active Condition DoD lack of adequate sleep Inactive Condition DoD bronchitis Inactive Condition DoD viral syndrome Inactive Condition DoD Laboratory Studies Inactive Condition Do D cystitis acute Inactive Condition DoD Aftercare Following Surgery Of Musculoskeletal System Inactive Condition DoD visit for: preoperative exam Inactive Condition DoD acute meniscal tear lateral Active Condition DoD joint pain, localized in the knee Active Condition DoD warts common Active Condition DoD allergic rhinitis due to pollen Active Condition [facility] Observation For Suspected Mental Condition Active Condition DoD meralgia paresthetica left Active Condition [facility] assessment of patient condition work-related Inactive Condition DoD joint pain, localized in the shoulder Inactive Condition DoD upper respiratory infection Inactive Condition DoD Test Negative Inactive Condition DoD Test Inactive Condition DoD Eyelid Foreign Body Left Eye Inactive Condition DoD coughing up sputum yellow Inactive Condition DoD superficial injury nonvenomous insect bite of left knee Inactive Condition DoD Inquiry And Counseling: Medication Admin And Compliance Active Condition DoD Patient Education - Self-Examination Of Breasts Inactive Condition [facility] visit for: contraceptive surveillance pill Inactive Condition [facility] visit for: screening exam venereal disease Inactive Condition [facility] routine gynecological exam with cervical pap smear Inactive Condition DoD other specified viral disease Inactive Condition DoD Contraceptives Inactive Condition [facility] visit for: administrative purpose Inactive Condition See SF600 DoD Abnormal Pap Smear Of Cervix Inactive Condition DoD Cerv Pap Smear (+) Atyp Squamous Cells Undetermined Signif Inactive Condition Please inform pt. that she was noted to have abnormal cells per PAP (ASCUS) and recommendation is to have repeat PAP in 6 months. Inform pt. to schedule appointment for repeat PAP in end June 2007. DoD visit for: issue repeat prescription for medication Inactive Condition Pt. reports of being interested, Pt. was advised to quit smoking, pt. denies FHx of DVT or PE. Pt. was given on specific instruction on how to start and how to take the OCP. DoD visit for: screening exam malignant neoplasm breast Inactive Condition Pt. denies of any FHx of breast cancer, reports of performing breast exam on monthly basis. DoD visit for: screening exam for malignant neoplasm cervix Inactive Condition 21 yo WF here for PAP, reports of being sexually active x 1 yr, denies FHx of ovarian, uterine or cervical cancer. PAP was performed with no complication. DoD cervicalgia Inactive Condition DoD compression arthralgia - knee / patella / tibia / fibula Inactive Condition DoD acute lymphadenitis inguinal left Inactive Condition f/u, resolved, Labs reviewed with pt: WNL. DoD acute lymphadenitis inguinal Inactive Condition Pt. reports terence t she has pain over the inguinal region x 1 wk. Reports of no fever, chills or nt sweats. Pt. reports of new sexial partner. inguinal LN enlargement notd bilaterally with mild tenderness on palpation. Denies any vaginal discarge or urinary symptoms. Pt. was advised against shaving pubic hair. DoD hand sprain Inactive Condition DoD chills [as a symptom] Inactive Condition DoD sore throat Inactive Condition DoD nausea Inactive Condition rtc if no sx improvement in 1 day DoD Patient Education - Proper Use Of Medications Inactive Condition DoD cough Inactive Condition DoD Preventive Medicine New Patient Evaluation Adult 18-39 Years Inactive Condition DoD visit for: services physical Active Condition DoD Acute meniscal tear, lateral Active Condition [facility] Allergic rhinitis Active Condition 95 [facility] Asthma Active Condition [facility] Exposure to polluted air Active Condition [facility] LBP - Low back pain Active Condition [facility] Left knee pain Active Condition -A [facility] Meralgia paresthetica Active Condition [facility] Mild intermittent asthma, uncomplicated Active Condition [facility] Nicotine dependence Active Condition C [facility] Pain in left leg Active Condition C [facility] Palpitations Active Condition - C [facility] Medications Combined list of outpatient medications from Department of Defense and Veterans Affairs facilities.Medications provided include 1) outpatient medications from the last 15 months, and 2) patient-reported medications. Medication Details Route Status Patient Instructions Prescription Expires Prescription Number Last Dispense Date Ordering Provider Order Date Order Qty Source CETIRIZINE HCL (CETIRIZINE HCL), 10 MG, TABLET, ORAL, PACK PHARMACEUT, 500 ea. BOTTLE Cancele d [id number] : 2022 0 Pharmac y Data Transac tion Service Facilit y FLUTICASONE PROPIONATE (FLUTICASON E PROPIONATE) , 50MCG, SPRAY SUSP, NASAL, [facility]., 16 g AER W/ADAP Cancele d [id number] : 2022 0 Pharmac y Data Transac tion Service Facilit y MONTELUKAST SODIUM (MONTELUKAS T SODIUM), 10 MG, TABLET, ORAL, AUROBINDO PHARM, 90 ea. BOTTLE Cancele d [id number] : 2023 0 Pharmac y Data Transac tion Service Facilit y Allergies, Adverse Reactions, Alerts Combined list of allergies from Department of Defense and Veterans Affairs facilities. It does not include entries that were removed or entered in error. Substance Category Reaction Severity Reaction type Status Date Reported Comments Source BICILLIN Drug allergy (disorder) active 3 [facility] PENICILLIN G Drug allergy (disorder) Hallucina tion, Rash active 6 [facility] penicillin G benzathine Propensity to adverse reactions to substance Rash Active childhood reaction Unknown Organizati on Immunizations Combined list of available immunizations from the Department of Defense and Veterans Affairs facilities. Immunization Series Date Given Administered By Site Reaction Lot Number CVX Code Drug It Administrator Status Comments Source influenza virus vaccine, inactivated 2022 [id number] 88 complet ed influenza virus vaccine, inactivat ed 01/02/23 Recorded 0310C-A F-C-66t h [facility] SARS-COV-2 (COVID-19) vaccine, mRNA, spike protein, LNP, preservative free, 100 mcg or 50 mcg dose 4 2020 [id number] [employer] (MOD) complet ed SARS-COV- 2 (COVID-19 ) vaccine, mRNA, spike protein, LNP, preservat hardy free, 100 mcg or 50 mcg dose [facility] influenza, injectable, quadrivalent 2020 [id number] 158 [employer] complet ed influenza , injectabl e, quadrival ent 11/16/20 Given Ambulat ory Pharmac y influenza, injectable, quadrivalent, contains preservative 10 2020 [id number] 782 158 [employer] (SEQ) complet ed influenza , injectabl e, quadrival ent, contains preservat hardy DoD COVID Vaccine Moderna [id number] complet ed COVID Vaccine Moderna 03/24/20 Given Ambulat ory Pharmac y SARS-COV-2 (COVID-19) vaccine, mRNA, spike protein, LNP, preservative free, 100 mcg or 50 mcg dose 2 [id number] 207 Moderna [employer] (MOD) complet ed SARS-COV- 2 (COVID-19 ) vaccine, mRNA, spike protein, LNP, preservat hardy free, 100 mcg or 50 mcg dose DoD COVID Vaccine Moderna [id number] 207 complet ed COVID Vaccine Moderna 02/25/20 Given Ambulat ory Pharmac y SARS-COV-2 (COVID-19) vaccine, mRNA, spike protein, LNP, preservative free, 100 mcg or 50 mcg dose 1 [id number] 207 Moderna [employer] (MOD) complet ed SARS-COV- 2 (COVID-19 ) vaccine, mRNA, spike protein, LNP, preservat hardy free, 100 mcg or 50 mcg dose DoD influenza, injectable, quadrivalent 2019 [id number] 696 158 [employer] complet ed influenza , injectabl e, quadrival ent 11/25/19 Given Ambulat ory Pharmac y influenza, injectable, quadrivalent, contains preservative 1 2019 [id number] 696 158 [employer] (SEQ) complet ed influenza , injectabl e, quadrival ent, contains preservat hardy DoD measles virus vaccine 0 2019 05 () Not Given measles virus vaccine DoD rubella virus vaccine 0 2019 06 () Not Given rubella virus vaccine DoD mumps virus vaccine 0 2019 07 () Not Given mumps virus vaccine DoD varicella virus vaccine 0 2019 21 () Not Given varicella virus vaccine DoD influenza, injectable, quadrivalent- pf 2018 [id number] 150 [employer] complet ed influenza , injectabl e, quadrival ent-pf 01/06/19 Given Ambulat ory Pharmac y Influenza, injectable, quadrivalent, preservative free 0 2018 [id number] 346 150 [employer] (SEQ) complet ed Influenza , injectabl e, quadrival ent, preservat hardy free DoD influenza, seasonal, injectable-pf 2017 [id number] 140 [employer] complet ed influenza , seasonal, injectabl e-pf 12/05/17 Given Ambulat ory Pharmac y Influenza, seasonal, injectable, preservative free 1 2017 [id number] 140 [employer] (SEQ) comple t ed Influenza , seasonal, injectabl e, preservat hardy free DoD tetanus-dipht h toxoids (Td) adult/adol 2017 [id number] 09 [employer] [place] [employer] complet ed tetanus-d iphth toxoids (Td) adult/ado l 04/18/17 Given Ambulat ory Pharmac y tetanus and diphtheria toxoids, adsorbed, preservative free, for adult use (2 Lf of tetanus toxoid and 2 Lf of diphtheria toxoid) 1 2017 [id number] 09 [facility] (MBL) complet ed tetanus and diphtheri a toxoids, adsorbed, preservat hardy free, for adult use (2 Lf of tetanus toxoid and 2 Lf of diphtheri a toxoid) DoD influenza, injectable, quadrivalent- pf 2016 [id number] 150 GlaxoSmithKli ne complet ed influenza , injectabl e, quadrival ent-pf 11/22/16 Given Ambulat ory Pharmac y Influenza, injectable, quadrivalent, preservative free 0 2016 [id number] 150 SmithKline (SKB) complet ed Influenza , injectabl e, quadrival ent, preservat hardy free DoD influenza, injectable, quadrivalent 2015 [id number] 158 GlaxoSmithK[employer] ne complet ed influenza , injectabl e, quadrival ent 12/02/15 Given Ambulat ory Pharmac y influenza, injectable, quadrivalent, contains preservative 0 2015 [id number] 158 [employer] (SKB) complet ed influenza , injectabl e, quadrival ent, contains preservat hardy DoD influenza, seasonal, injectable-pf 2014 [id number] 140 GlaxoSmithKli ne complet ed influenza , seasonal, injectabl e-pf 12/02/14 Given Ambulat ory Pharmac y Influenza, seasonal, injectable, preservative free 11 2014 [id number] 140 Smithine (SKB) complet ed Influenza , seasonal, injectabl e, preservat hardy free DoD tuberculin purified protein derivative 2014 [id number] 96 sanofi pasteur complet ed tuberculi n purified protein derivativ e 11/09/14 Given Ambulat ory Pharmac y influenza, live, intranasal,qu adrivalent 2013 [id number] 149 Medimmune Inc comple t ed influenza , live, intranasa l,quadriv alent 11/19/13 Given Ambulat ory Pharmac y influenza, live, intranasal, quadrivalent 10 2013 [id number] 149 MedImmune, Inc. (MED) complet ed influenza , live, intranasa l, quadrival ent DoD influenza, seasonal, injectable-pf 2012 [id number] 140 sanofi pasteur complet ed influenza , seasonal, injectabl e-pf 10/23/12 Given Ambulat ory Pharmac y Influenza, seasonal, injectable, preservative free 0 2012 [id number] 140 Sanofi Pasteur ([facility]) complet ed Influenza , seasonal, injectabl e, preservat hardy free DoD influenza virus vaccine, live 2011 [id number] 111 Medimmune Inc [facility] t ed influenza virus vaccine, live 11/16/11 Given Ambulat ory Pharmac y influenza virus vaccine, live, attenuated, for intranasal use 8 2011 [id number] 111 MedImmune, Inc. (MED) complet ed influenza virus vaccine, live, attenuate d, for intranasa l use DoD influenza, seasonal, injectable 2010 [id number] 141 sanofi pasteur complet ed influenza , seasonal, injectabl e 02/08/11 Given Ambulat ory Pharmac y Influenza, seasonal, injectable 7 2010 [id number] 141 Sanofi Pasteur (PMC) complet ed Influenza , seasonal, injectabl e DoD tuberculin purified protein derivative 2009 [id number] 96 sanofi pasteur complet ed tuberculi n purified protein derivativ e 01/31/10 Given Ambulat ory Pharmac y influenza virus vaccine, live 2009 [id number] 111 [employer] comple t ed influenza virus vaccine, live 11/08/09 Given Ambulat ory Pharmac y influenza virus vaccine, live, attenuated, for intranasal use 1 2009 [id number] 111 [employer]. (MED) complet ed influenza virus vaccine, live, attenuate d, for intranasa l use DoD Novel influenza-H1N 1-09, injectable 2009 [id number] 1 (F) 127 [employer] complet ed Novel influenza -G1T2-65, injectabl e 03/17/09 Given Ambulat ory Pharmac y Novel influenza-H1N 1-09, injectable 1 2009 [id number] 1 (F) 127 [employer]. (NOV) complet ed Novel influenza -D4S1-61, injectabl e DoD tuberculin purified protein derivative 2008 [id number] 96 sanofi pasteur complet ed tuberculi n purified protein derivativ e 10/19/08 Given Ambulat ory Pharmac y Human Papillomaviru s,quadrivalen t(HPV4) 2008 [id number] 62 Merck & Company Inc complet ed Human Papilloma virus,martinez drivalent (HPV4) 10/19/08 Given Ambulat ory Pharmac y human papilloma virus vaccine, quadrivalent 1 2008 [id number] 62 Merck (MSD) complet ed human papilloma virus vaccine, quadrival ent DoD influenza virus vaccine, live 2008 [id number] 111 [employer] Inc comple t ed influenza virus vaccine, live 10/15/08 Given Ambulat ory Pharmac y influenza virus vaccine, live, attenuated, for intranasal use 1 2008 [id number] 111 [employer] Inc. (MED) complet ed influenza virus vaccine, live, attenuate d, for intranasa l use DoD anthrax vaccine 2008 [id number] 24 [employer] complet ed anthrax vaccine 03/14/08 Given Ambulat ory Pharmac y anthrax vaccine 2 2008 [id number] 24 [employer] [place] ([facility]) complet ed anthrax vaccine DoD vaccinia (smallpox) vaccine 2007 VV04-00 3A 75 [employer] complet ed vaccinia (smallpox ) vaccine 01/28/08 Given Ambulat ory Pharmac y Human Papillomaviru s,quadrivalen t(HPV4) 2007 [id number] 62 Merck & [employer] complet ed Human Papilloma virus,martinez drivalent (HPV4) 01/28/08 Given Ambulat ory Pharmac y human papilloma virus vaccine, quadrivalent 1 2007 [id number] 62 Merck (MSD) complet ed human papilloma virus vaccine, quadrival ent DoD vaccinia (smallpox) vaccine 1 2007 VV04-00 3A 75 [facility]) complet ed vaccinia (smallpox ) vaccine DoD typhoid Vi capsular polysaccharid e vac 2007 [id number] 101 sanofi pasteur complet ed typhoid Vi capsular polysacch aride vac 01/23/08 Given Ambulat ory Pharmac y anthrax vaccine 2007 [id number] 24 [employer] complet ed anthrax vaccine 01/23/08 Given Ambulat ory Pharmac y anthrax vaccine 1 2007 [id number] 24 [employer] [place] ([facility]) complet ed anthrax vaccine DoD typhoid Vi capsular polysaccharid e vaccine 1 2007 [id number] 101 Sanofi Pasteur (PMC) complet ed typhoid Vi capsular polysacch aride vaccine DoD influenza virus vaccine, live 2007 [id number] 111 [employer] Inc comple t ed influenza virus vaccine, live 11/11/07 Given Ambulat ory Pharmac y influenza virus vaccine, live, attenuated, for intranasal use 1 2007 [id number] 111 [employer] Inc. (MED) complet ed influenza virus vaccine, live, attenuate d, for intranasa l use DoD tuberculin purified protein derivative 2007 96 complet ed tuberculi n purified protein derivativ e 03/28/07 Given Ambulat ory Pharmac y tuberculin purified protein derivative 2007 [id number] 96 sanofi pasteur complet ed tuberculi n purified protein derivativ e 03/25/07 Given Ambulat ory Pharmac y Human Papillomaviru s,quadrivalen t(HPV4) 2007 [id number] 62 Merck & Company Inc complet ed Human Papilloma virus,martinez drivalent (HPV4) 03/25/07 Given Ambulat ory Pharmac y tetanus, diphtheria, acellular pertu is 2007 [id number] 115 sanofi pasteur complet ed tetanus, diphtheri a, acellular pertussis 03/25/07 Given Ambulat ory Pharmac y human papilloma virus vaccine, quadrivalent 1 2007 [id number] 62 Merck (MSD) complet ed human papilloma virus vaccine, quadrival ent DoD tetanus toxoid, reduced diphtheria toxoid, and acellular pertu is vaccine, adsorbed 1 2007 [id number] 115 Sanofi Pasteur (PMC) complet ed tetanus toxoid, reduced diphtheri a toxoid, and acellular pertussis vaccine, adsorbed DoD influenza virus vaccine,split 2006 [id number] 15 GlaxoSmithKli ne complet ed influenza virus vaccine,s plit 11/16/06 Given Ambulat ory Pharmac y influenza virus vaccine, split virus (incl. purified surface antigen)-reti red CODE 1 2006 [id number] 15 [facility] ([facility]) complet ed influenza virus vaccine, split virus (incl. purified surface antigen)- retired CODE DoD tuberculin purified protein derivative 2006 [id number] 96 sanofi pasteur complet ed tuberculi n purified protein derivativ e 04/03/06 Given Ambulat ory Pharmac y influenza virus vaccine,split 2005 [id number] 15 sanofi pasteur complet ed influenza virus vaccine,s plit 01/09/06 Given Ambulat ory Pharmac y influenza virus vaccine, split virus (incl. purified surface antigen)-reti red CODE 1 2005 [id number] 15 Sanofi Pasteur ([facility]) complet ed influenza virus vaccine, split virus (incl. purified surface antigen)- retired CODE DoD hepatitis A adult vaccine 2005 [id number] 52 Merck & Company Inc complet ed hepatitis A adult vaccine 08/24/05 Given Ambulat ory Pharmac y hepatitis A vaccine, adult dosage 2 2005 [id number] 52 Merck (MSD) complet ed hepatitis A vaccine, adult dosage DoD hepatitis A adult vaccine 2005 [id number] 52 GlaxoSmithKli ne complet ed hepatitis A adult vaccine 02/22/05 Given Ambulat ory Pharmac y measles, mumps and rubella virus vaccine 1 2005 03 () Not Given measles, mumps and rubella virus vaccine DoD varicella virus vaccine 1 2005 21 () Not Given varicella virus vaccine DoD hepatitis B vaccine, adult dosage 1 2005 43 () Not Given hepatitis B vaccine, adult dosage DoD hepatitis A vaccine, adult dosage 1 2005 [id number] 52 [employer] (SKB) complet ed hepatitis A vaccine, adult dosage DoD tuberculin purified protein derivative 2004 [id number] 96 sanofi pasteur complet ed tuberculi n purified protein derivativ e 02/16/05 Given Ambulat ory Pharmac y tetanus-dipht h toxoids (Td) adult/adol 2004 [id number] 09 sanofi pasteur complet ed tetanus-d iphth toxoids (Td) adult/ado l 02/16/05 Given Ambulat ory Pharmac y influenza virus vaccine,split 2004 [id number] 15 sanofi pasteur complet ed influenza virus vaccine,s plit 02/16/05 Given Ambulat ory Pharmac y poliovirus vaccine, inactivated 2004 [id number] 10 sanofi pasteur complet ed polioviru s vaccine, inactivat ed 02/16/05 Given Ambulat ory Pharmac y meningococcal polysaccharid e (MPSV4) 2004 [id number] 32 sanofi pasteur complet ed meningoco ccal polysacch aride (MPSV4) 02/16/05 Given Ambulat ory Pharmac y tetanus and diphtheria toxoids, adsorbed, preservative free, for adult use (2 Lf of tetanus toxoid and 2 Lf of diphtheria toxoid) 1 2004 [id number] 09 Sanofi Pasteur ([facility]) complet ed tetanus and diphtheri a toxoids, adsorbed, preservat hardy free, for adult use (2 Lf of tetanus toxoid and 2 Lf of diphtheri a toxoid) DoD poliovirus vaccine, inactivated 1 2004 [id number] 10 Sanofi Pasteur ([facility]) complet ed polioviru s vaccine, inactivat ed DoD influenza virus vaccine, split virus (incl. purified surface antigen)-reti red CODE 1 2004 [id number] 15 Sanofi Pasteur ([facility]) complet ed influenza virus vaccine, split virus (incl. purified surface antigen)- retired CODE DoD meningococcal polysaccharid e vaccine (MPSV4) 1 2004 [id number] 32 Sanofi Pasteur (PMC) complet ed meningoco ccal polysacch aride vaccine (MPSV4) DoD Results Combined list of recent chemistry, hematology and other laboratory results from Department of Defense and Veterans Affairs, ranging from 15 months to all on record, depending upon the facility. Order Name Results Value Reference Range Date Interpretation Specimen Comments Source Infectiou s Disease HIV-1/O/2 Non-Reac tive 10 (06/11/23 9:21 AM) 06/10 N Interpretiv e Data: INTERPRETAT ION: This method is a screening procedure for the detection of HIV p24 Antigen and Antibodies to HIV-1, including Group O, and/or HIV-2. NON-REACTIV E: HIV-1 antigen and HIV-1 / HIV-2 antibodies were not detected. No laboratory evidence of HIV infection. A negative test result does not exclude the possibility of exposure to or infection with HIV. HIV antibodies and/or p24 antigen may be undetectabl e in some stages of the infection and in some clinical conditions. If acute HIV infection is suspected, consider submitting another specimen to a reference laboratory for HIV-1 RNA. SCREEN REACTIVE - CONFIRMATIO N TO FOLLOW: Possible presence of HIV-1antibo dies, HIV-2 antibodies and/or HIV-1 p24 antigen. Specimen will reflex to the confirmatio n testing that fulfills the Center for Disease Control and Prevention' s HIV diagnostic algorithm. Refer to [facility] Lab Guide for additional information : [email or web address] b_guide.asp x Testing performed by Replaced By [facility] emelyn garrett. 5600A-U SAFSAM EPILAB Infectiou s Disease Coronavirus NL63 Not Detected (08/24/22 9:44 AM) 08/24 N 5600A-U SAFSAM EPILAB Infectiou s Disease Coronavirus HKU1 Not Detected (08/24/22 9:44 AM) 08/24 N 5600A-U SAFSAM EPILAB Infectiou s Disease Coronavirus 229E Not Detected (08/24/22 9:44 AM) 08/24 N 5600A-U SAFSAM EPILAB Infectiou s Disease Human Rhinovirus/ Enterovirus Detected *ABN* (08/24/22 9:44 AM) 08/24 A 5600A-U SAFSAM EPILAB Infectiou s Disease Coronavirus OC43 Not Detected (08/24/22 9:44 AM) 08/24 N 5600A-U SAFSAM EPILAB Infectiou s Disease Human bocavirus Not Detected (08/24/22 9:44 AM) 08/24 N 5600A-U SAFSAM EPILAB Infectiou s Disease Human Metapneumov irus Not Detected (08/24/22 9:44 AM) 08/24 N 5600A-U SAFSAM EPILAB Infectiou s Disease Chlamydia pneumoniae Not Detected (08/24/22 9:44 AM) 08/24 N 5600A-U SAFSAM EPILAB Infectiou s Disease Adenovirus Not Detected (08/24/22 9:44 AM) 08/24 N 5600A-U SAFSAM EPILAB Infectiou s Disease Mycoplasma pneumoniae Not Detected 1 (08/24/22 9:44 AM) 08/24 N Interpretiv e Data: This assay simultaneou sly detects and identifies the nucleic acid of twenty respiratory pathogens: influenza A, influenza A H1, influenza A H3, influenza B, respiratory syncytial virus (RSV) A, respiratory syncytial virus (RSV) B, coronavirus 229E, coronavirus OC43, coronavirus NL63, coronavirus HKU1, human metapneumov irus (MPV), rhinovirus/ enterovirus , adenovirus, parainfluen za virus 1, parainfluen za virus 2, parainfluen za virus 3, parainfluen za virus 4, human bocavirus, Chlamydophi la pneumoniae, and Mycoplasma pneumoniae. Reference Range: Not detected. A Not Detected result indicates that there is not a detectable amount of the correspondi ng virus or bacteria in the specimen submitted for testing but does not completely rule out the presence of that pathogen. A Detected result indicates that nucleic acid of the correspondi ng virus or bacteria was detected in the specimen submitted for testing. This test does not indicate the stage of infection. An Inconclusi ve result may indicate the absence of sufficient human cellular material in the specimen due to poor collection or loss of specimen integrity. The test result does not rule out the presence of other respiratory pathogens that are not included in this panel. Laboratory results should be correlated with other clinical findings for diagnosis, treatment, or other patient management decisions. Viral culture is performed on all respiratory specimens along with the molecular assay. Not all pathogens detected by the molecular assay will be detected by culture. Negative culture results will be reported after 10 days of incubation. See Viral Culture Respiratory in the Epidemiolog y Lab Guide at https://kx. health.[facility]/ kj/kx5/EPIL ab/Pages/la b_guide.asp x for more information . Notice: This test has been modified from its original clearance by the U.S. Food and Drug Administrat ion (FDA) to allow testing of nasopharyng eal wash specimens. Test performance characteris tics were determined by [facility] . This test is for clinical use. It should not be regarded as investigati onal or for research use. This laboratory is accredited under the Clinical Laboratory Improvement Amendment of 1988(CLIA-8 8) as qualified to perform high-comple xity clinical laboratory testing. Methodology : Multiplex polymerase chain reaction. 5600A-U SAFSAM EPILAB Infectiou s Disease Respiratory Synctial Virus A Not Detected (08/24/22 9:44 AM) 08/24 N 5600A-U SAFSAM EPILAB Infectiou s Disease Influenza B Not Detected (08/24/22 9:44 AM) 08/24 N 5600A-U SAFSAM EPILAB Infectiou s Disease Influenza A Not Detected 2 (08/24/22 9:44 AM) 08/24 N Interpretiv e Data: Testing is performed by real time reverse transcripta se polymerase chain reaction (district resource officer PCR) on either original specimen or viral isolate. This test is used to determine the presence of Influenza A/H1, Influenza A/H3, Influenza A (H1N1) pdm09 or Influenza B virus RNA in a patient's specimen. Other subtypes of Influenza A may also be detected; additional testing is conducted to identify the subtype and further analysis and characteriz ation is performed by the Centers for Disease Control and Prevention (CDC). A No Influenza Detected result indicates that no Influenza A or Influenza B RNA was detected by PCR. This does not rule out an infection with influenza virus or any other respiratory pathogen. PCR results should always be interpreted in conjunction with all relevant clinical information . A positive test result is indicated with one of the following entries: Influenza Virus Type A/H1, Influenza Virus Type A/H3, 2009 Influenza A(H1N1), or Influenza B Detected. This test does not indicate the stage of infection. Laboratory test results should always be considered in the context of clinical observation s and epidemiolog ic data in making a final diagnosis. An Inconclusi ve result may indicate the absence of sufficient human cellular material in the specimen due to poor collection or loss of specimen integrity. Fact Sheet for Healthcare Providers: https://www .fda.gov/me sarahi/83105/d ownload Fact Sheet for Patients: https://www .fda.gov/me sarahi/94967/d ownload Testing performed by district resource officer PCR using either an assay modified from the US Food and Drug Administrat ion (FDA)-appro emile version by use of alternate specimen sources or a [facility] laboratory- developed test (LDT). Performance characteris tics of both district resource officer PCR assays were determined by [facility] . Notice: This test was developed and its performance characteris tics determined by [facility] . It has not been cleared or approved by the U.S. Food and Drug Administrat ion (FDA). The laboratory is regulated under CLIP/CLIA as qualified to perform high-comple xity testing. This test is used for clinical purposes. It should not be regarded as investigati onal or for research. 5600A-U SAFSAM EPILAB Infectiou s Disease Parainfluen za 1 Not Detected (08/24/22 9:44 AM) 08/24 N 5600A-U SAFSAM EPILAB Infectiou s Disease Respiratory Synctial Virus B Not Detected (08/24/22 9:44 AM) 08/24 N 5600A-U SAFSAM EPILAB Infectiou s Disease Viral Culture Respiratory TNP 12 (08/24/22 9:44 AM) 08/24 N Interpretiv e Data: Methodology : Tissue Culture Conventiona l respiratory viral cell culture tubes are held up to 10 days. Negative respiratory viral culture results do not preclude respiratory viral infection and should not be used as the sole basis for treatment or other patient management decisions. Positive respiratory viral cultures do not preclude concurrent respiratory viral or bacterial infection and should be interpreted in accordance with the patient's clinical presentatio n. Notifiable result/cond ition for Local/State PH department, notify your local public health immediately for proper notificatio n. 5600A-U SAFSAM EPILAB Infectiou s Disease Parainfluen za 4 Not Detected (08/24/22 9:44 AM) 08/24 N 5600A-U SAFSAM EPILAB Infectiou s Disease Parainfluen za 3 Not Detected (08/24/22 9:44 AM) 08/24 N 5600A-U SAFSAM EPILAB Infectiou s Disease Parainfluen za 2 Not Detected (08/24/22 9:44 AM) 08/24 N 5600A-U SAFSAM EPILAB Miscellan eous Sendouts Misc Result. Test Performe d: Niyah Influenz a A&B + SARS Antigen Test: Result: Ref Range: Influenz a A Not Detected Not Detected Influenz a B Not Detected Not Detected SARS Ag Not Detected Not Detected Performi ng Lab: [address] [address] 08/24 0096A-A F-C-72N d [facility] [place] Miscellan eous Sendouts Misc Specimen Source? Rapid Flu/COVI D 08/24 0096A-A F-C-72N [facility] [place] Miscellan eous Sendouts Req Order?. Rapid Flu/COVI D 08/24 0096A-A F-C-72N d [facility] [place] Infectiou s Disease Strep A, Rapid Negative (08/24/22 9:44 AM) 08/24 N 0096A-A F-C-[facility]N [facility] [place] Urinalysi s Yeast, Wet Prep None Seen (07/24/22 10:49 AM) 07/24 N 0096A-A F-C-72N d [facility] [place] Urinalysi s Bacteria, Wet Prep Rare *ABN* (07/24/22 10:49 AM) 07/24 A 0096A-A F-C-72N d [facility] [place] Urinalysi s Trichomonas , Wet Prep None Seen (07/24/22 10:49 AM) 07/24 N 0096A-A F-C-72N d [facility] [place] Urinalysi s Clue Cells, Wet Prep None Seen (07/24/22 10:49 AM) 07/24 N 0096A-A F-C-72N d [facility] [place] Urinalysi s WBC, Wet Prep Few (07/24/22 10:49 AM) 07/24 N 0096A-A F-C-72N d [facility] [place] Urinalysi s GIOVANNA None Seen (07/24/22 10:49 AM) 07/24 N 0096A-A F-C-72N d [facility] [place] Molecular Infectiou s Disease Reason for Test? Screenin g (06/28/22 9:52 AM) 06/28 N 0117A-A -ASU-5 [facility] Molecular Infectiou s Disease SARS-CoV-2 PCR Not Detected 11 (06/28/22 9:52 AM) 06/28 N Interpretiv e Data: SARS-CoV-2 DETECTED: Positive test for SARS-CoV-2 (SARS-CoV-2 RNA Present) NOT DETECTED: Negative test for SARS-CoV-2 (No SARS-CoV-2 RNA Present) INVALID: Presence or absence of SARS-CoV-2 cannot be determined. If clinically indicated, repeat assay with same sample or, if possible new sample for testing. 0117A-A -ASU-5 [facility] Molecular Infectiou s Disease Influenza B PCR Not Detected 7 (06/28/22 9:52 AM) 06/28 N Interpretiv e Data: Influenza B DECTECTED: Positive test for Influenza B (Influenza B RNA Present) NOT DETECTED: Negative test for Influenza B (No Influenza B RNA Present) INVALID: Presence or absence of Influenza B cannot be determined. If clinically indicated, repeat assay with same sample or, if possible new sample for testing. Limitations : This test is intended to be used for the detection of SARS-CoV-2, Influenza A and Influenza B RNA in nasal and nasopharyng eal swab samples collected in the viral transport systems recommended by the manufacture r for this assay (refer to package insert). Testing of other sample types, improper collection, or mishandling of specimens may lead to inaccurate results. False positive results can occur due to cross-react ivity with respiratory tract organisms. Negative results for Influenza A and Influenza B should be considered Presumptiv e Negative in samples that have a positive SARS-CoV-2 result as competitive inhibition may lead to false negative influenza virus results. If co-infectio n with influenza A or influenza B virus is suspected in samples with a positive SARS-CoV-2 result, the sample should be re-tested with another FDA cleared, approved, or authorized influenza test, if influenza virus detection would change clinical management. Mutations within the target regions of georgette r SARS-CoV-2, Influenza A, and Influenza B could affect primer and/or probe binding that results in failure to detect the presence of virus. Disclaimer: This test is only authorized in the [place] for the duration of the declaration that circumstanc es exist justifying the authorizati on of emergency use of in vitro diagnostic tests for detection and/or diagnosis of COVID-19 under Section 564(b)(1) of the Act, 21 U.S.C. ' 360bbb-3(b) (1), unless the authorizati on is terminated or revoked sooner. 0117A-A F-ASU-5 [facility] Molecular Infectiou s Disease Influenza A PCR Not Detected 8 (06/28/22 9:52 AM) 06/28 N Interpretiv e Data: Influenza A DETECTED: Positive test for Influenza A (Influenza A RNA Present) NOT DETECTED: Negative test for Influenza A (No Influenza A RNA Present) INVALID: Presence or absence of Influenza A cannot be determined. If clinically indicated, repeat assay with same sample or, if possible new sample for testing. 0117A-A F-ASU-5 [facility] Miscellan eous Sendouts Misc Result. Test Performe d: Niyah Influenz a A&B + SARS Antigen Test: Result: Ref Range: Influenz a A Not Detected Not Detected Influenz a B Not Detected Not Detected SARS Ag Not Detected Not Detected 02/14 0096A-A F-C-72N d [facility] [place] Miscellan eous Sendouts Misc Specimen Source? Swab 02/14 0096A-A F-C-72N d [facility] [place] Miscellan eous Sendouts Req Order?.LC Rapid Flu/COVI D 02/14 0096A-A F-C-72N d [facility] [place] Infectiou s Disease Viral Culture Respiratory .EPI TNP 02/14 Result Comment: RESULT COMMENT(S): Only performed on specimens reported as Not Detected on both SARS-CoV-2 PCR and Respiratory Pathogen Panel. INTERPRETAT ION(S): Conventiona l respiratory viral cell culture tubes are held up to 10 days. Negative respiratory viral culture results do not preclude respiratory viral infection and should not be used as the sole basis for treatment or other patient management decisions. Positive respiratory viral cultures do not preclude concurrent respiratory viral or bacterial infection and should be interpreted in accordance with the patient's clinical presentatio n. Notifiable result/cond ition for Local/State PH department, notify your local public health immediately for proper notificatio n. Performed by: [facility] [address] [place] [id number] 0096A-A F-C-72N d [facility] [place] Infectiou s Disease RSV A PCR.EPI NOT DETECTED 02/14 0096A-A F-C-72N d [facility] [place] Infectiou s Disease Coronavirus OC43.EPI NOT DETECTED 02/14 0096A-A F-C-72N d [facility] [place] Infectiou s Disease RSV B PCR.EPI NOT DETECTED 02/14 0096A-A F-C-72N d [facility] [place] Infectiou s Disease M. pneumoniae PCR.EPI NOT DETECTED 02/14 Result Comment: INTERPRETAT ION(S): This assay simultaneou sly detects and identifies the nucleic acid of twenty respiratory pathogens: influenza A, influenza A H1, influenza A H3, influenza B, respiratory syncytial virus (RSV) A, respiratory syncytial virus (RSV) B, coronavirus 229E, coronavirus OC43, coronavirus NL63, coronavirus HKU1, human metapneumov irus (MPV), rhinovirus/ enterovirus , adenovirus, parainfluen za virus 1, parainfluen za virus 2, parainfluen za virus 3, parainfluen za virus 4, human bocavirus, Chlamydophi la pneumoniae, and Mycoplasma pneumoniae. Reference Range: Not detected. A Not Detected result indicates that there is not a detectable amount of the correspondi ng virus or bacteria in the specimen submitted for testing but does not completely rule out the presence of that pathogen. A Detected result indicates that nucleic acid of the correspondi ng virus or bacteria was detected in the specimen submitted for testing. This test does not indicate the stage of infection. An Inconclusi ve result may indicate the absence of sufficient human cellular material in the specimen due to poor collection or loss of specimen integrity. The test result does not rule out the presence of other respiratory pathogens that are not included in this panel. Laboratory results should be correlated with other clinical findings for diagnosis, treatment, or other patient management decisions. Viral culture is performed on all respiratory specimens along with the molecular assay. Not all pathogens detected by the molecular assay will be detected by culture. Negative culture results will be reported after 10 days of incubation. See Viral Culture Respiratory in the Epidemiolog y Lab Guide at https://kx2 .[facility]/k j/kx5/Carlo b/Pages/lab _guide.aspx for more information . Notice: This test has been modified from its original clearance by the U.S. Food and Drug Administrat ion (FDA) to allow testing of nasopharyng eal wash specimens. Test performance characteris tics were determined by [facility] . This test is for clinical use. It should not be regarded as investigati onal or for research use. This laboratory is accredited under the Clinical Laboratory Improvement Amendment of 1988(CLIA-8 8) as qualified to perform high-comple xity clinical laboratory testing. Methodology : Multiplex polymerase chain reaction. Performed by: Epidemiolog y Laboratory [facility] Bldg [address] [place] [address], [place] [phone] 0096A-A F-C-72N d [facility] [place] Infectiou s Disease C. pneumoniae PCR.EPI NOT DETECTED 02/14 0096A-A F-C-72N d [facility] [place] Infectiou s Disease Adenovirus PCR.EPI NOT DETECTED 02/14 0096A-A F-C-72N d [facility] [place] Infectiou s Disease Human Bocavirus PCR.EPI NOT DETECTED 02/14 0096A-A F-C-72N d [facility] [place] Infectiou s Disease Influenza A PCR.EPI NOT DETECTED 02/14 0096A-A F-C-72N d [facility] [place] Infectiou s Disease Metapneumov irus.EPI NOT DETECTED 02/14 0096A-A F-C-72N d [facility] [place] Infectiou s Disease Influenza B PCR.EPI NOT DETECTED 02/14 0096A-A F-C-72N d [facility] [place] Infectiou s Disease Rhino/Enter ovirus PCR Hyb.EPI NOT DETECTED 02/14 0096A-A F-C-72N d [facility] [place] Infectiou s Disease Parainfluen za Virus 2 PCR.EPI NOT DETECTED 02/14 0096A-A F-C-72N d [facility] [place] Infectiou s Disease Parainfluen za Virus 1 PCR.EPI NOT DETECTED 02/14 0096A-A F-C-72N d [facility] [place] Infectiou s Disease Parainfluen za Virus 4 PCR.EPI NOT DETECTED 02/14 0096A-A F-C-72N d [facility] [place] Infectiou s Disease Parainfluen za Virus 3 PCR.EPI NOT DETECTED 02/14 0096A-A F-C-72N d [facility] [place] Infectiou s Disease Coronavirus 229E.EPI NOT DETECTED 02/14 0096A-A F-C-72N d [facility] [place] Infectiou s Disease Coronavirus NL63.EPI NOT DETECTED 02/14 0096A-A F-C-72N d [facility] [place] Infectiou s Disease Coronavirus HKU1.EPI NOT DETECTED 02/14 0096A-A F-C-72N d [facility] [place] Urinalysi s UA RBC None Seen (10/19/21 11:24 AM) 10/19 N 0096A-A F-C-72N d [facility] [place] Urinalysi s UA Bacteria None Seen (10/19/21 11:24 AM) 10/19 N 0096A-A F-C-72N d [facility] [place] Urinalysi s UA Epi Squam 1-5 (10/19/21 11:24 AM) 10/19 N 0096A-A F-C-72N d [facility] [place] Urinalysi s UA WBC >50 *ABN* (10/19/21 11:24 AM) 10/19 A 0096A-A F-C-72N d [facility] [place] Urinalysi s UA Leuk Esterase Large *ABN* (10/19/21 11:24 AM) 10/19 A 0096A-A F-C-72N d [facility] [place] Urinalysi s UA Micro Ind? Indicate d (10/19/21 11:24 AM) 10/19 N 0096A-A F-C-72N d [facility] [place] Urinalysi s UA Color Colorles s *ABN* (10/19/21 11:24 AM) 10/19 A 0096A-A F-C-72N d [facility] [place] Urinalysi s UA Appear Slightly Cloudy *ABN* (10/19/21 11:24 AM) 10/19 A 0096A-A F-C-72N d [facility] [place] Urinalysi s UA Ketones Negative (10/19/21 11:24 AM) 10/19 N 0096A-A F-C-72N d [facility] [place] Urinalysi s UA pH 6.0 5.0 - 8.0 10/19 N 0096A-A F-C-72N d [facility] [place] Urinalysi s UA Spec [place] 1.003 1.005 - 1.030 10/19 L 0096A-A F-C-72N d [facility] [place] Urinalysi s UA Glucose NORMAL 10/19 0096A-A F-C-72N d [facility] [place] Urinalysi s UA Nitrite Negative (10/19/21 11:24 AM) 10/19 N 0096A-A F-C-72N d [facility] [place] Urinalysi s UA Blood Moderate *ABN* (10/19/21 11:24 AM) 10/19 A 0096A-A F-C-72N d [facility] [place] Urinalysi s UA Protein Negative (10/19/21 11:24 AM) 10/19 N 0096A-A F-C-72N d [facility] [place] Urinalysi s UA Bili Negative (10/19/21 11:24 AM) 10/19 N 0096A-A F-C-72N d [facility] [place] Urinalysi s UA Urobilinoge n NORMAL 10/19 0096A-A F-C-72N d [facility] [place] Molecular Infectiou s Disease Ureaplasma spp PRAVIN Positive 10/19 A Result Comment: This test was developed and its performance characteris tics determined by [employer]. It has not been cleared or approved by the Food and Drug Administrat Bujbu. Performed At: [facility] [address] [id number] Chris Scott MD Ph:[phone] 0096A-A F-C-72N d [facility] [place] Molecular Infectiou s Disease Mycoplasma hominis PRAVIN Negative 10/19 Result Comment: This test was developed and its performance characteris tics determined by [employer]. It has not been cleared or approved by the Food and Drug Administrat Bujbu. 0096A-A F-C-72N d [facility] [place] Molecular Infectiou s Disease Mycoplasma genitalium PRAVIN LC Negative 10/19 Result Comment: This test was developed and its performance characteris tics determined by [employer]. It has not been cleared or approved by the Food and Drug Administrat Buj[place]. 0096A-A F-C-72N d [facility] [place] Vital Signs Combined list of inpatient and outpatient Vital Signs from [employer], ranging from 12 months to all on record, depending upon the facility. Vital Sign Value Date Comments Source Systolic Blood Pressure 114 mm[Hg] 12/09/19 23 14:23:00 5936F-LU-H-[facility] [place] Diastolic Blood Pressure 78 mm[Hg] 023 14:23:00 3933Y-YG-R-[facility] Respiratory Rate 14 br/min 12/08/2022 14:23:00 0115S-HP-X-[facility] BP Site Right arm 12/08/2022 14:23:00 8627B-SO-S-[facility] Mean Arterial Pressure, Calc 90 mm[Hg] 12/08/2022 14:23:00 8998Q-NG-R-[facility] Peripheral Pulse Rate 80 bpm 12/08/2022 14:23:00 3598J-VI-O-[facility] Blood Pressure Manual Automatic 12/08/2022 14:23:00 9290Q-AF-Q-[facility] BP Site Right arm 10/26/2021 14:52:00 9375Y-RC-A-[facility] Blood Pressure Manual Automatic 10/26/2021 14:52:00 1191K-WA-E-[facility] Temperature Oral 36.7 Carrie 10/26/2021 14:52:00 2496H-QI-K-[facility] Mean Arterial Pressure, Calc 92 mm[Hg] 10/26/2021 14:52:00 7633M-EF-O-[facility] Temperature Oral 36.9 Carrie 01/03/2022 14:17:00 2086M-HQ-J-[facility] Respiratory Rate 17 br/min 01/03/2022 14:17:00 8950G-LU-P-[facility] BP Site Right arm 01/03/2022 14:17:00 6481V-AY-M-[facility] Blood Pressure Manual Automatic 01/03/2022 14:17:00 4821E-PC-T-[facility] Systolic Blood Pressure 111 mm[Hg] 01/04/20 14:17:00 5667O-JU-T-[facility] Diastolic Blood Pressure 70 mm[Hg] 022 14:17:00 4991A-PK-N-[facility] Mean Arterial Pressure, Calc 84 mm[Hg] 01/03/2022 14:17:00 2741V-XG-Z-[facility] Systolic Blood Pressure 114 mm[Hg] 01/12/20 14:55:00 6647T-XZ-O-[facility] Diastolic Blood Pressure 76 mm[Hg] 14:55:00 0343M-OD-E-[facility] Mean Arterial Pressure, Calc 89 mm[Hg] 01/11/2022 14:55:00 6582G-UC-B-[facility] Peripheral Pulse Rate 82 bpm 01/11/2022 14:55:00 4742G-FM-R-[facility] Respiratory Rate 14 br/min 01/11/2022 14:55:00 3623Q-UX-A-[facility] Temperature Oral 36.9 Carrie 01/11/2022 14:55:00 8549B-MQ-F-[facility] BP Site Right arm 01/11/2022 14:55:00 1443F-VS-B-[facility] Blood Pressure Manual Automatic 01/11/2022 14:55:00 9153D-BE-A-[facility] Respiratory Rate 16 br/min 02/14/2022 20:38:00 3878K-WT-S-[facility] Peripheral Pulse Rate 89 bpm 02/14/2022 20:38:00 3727H-RN-V-[facility] Systolic Blood Pressure 126 mm[Hg] 02/15/20 20:38:00 7080P-MI-C-[facility] Diastolic Blood Pressure 78 mm[Hg] 20:38:00 9548H-OJ-I-[facility] Mean Arterial Pressure, Calc 94 mm[Hg] 02/14/2022 20:38:00 5123S-KT-L-72[facility] Temperature Oral 36.8 Carrie 02/14/2022 20:38:00 7432M-UJ-M-72[facility] Blood Pressure Manual Automatic 02/14/2022 20:38:00 0876X-QB-O-72[facility] BP Site Right arm 02/14/2022 20:38:00 4319M-RP-L-72[facility] Mean Arterial Pressure, Calc 88 mm[Hg] 02/22/2022 13:26:00 7737T-ST-P-72[facility] Respiratory Rate 16 br/min 02/22/2022 13:26:00 6952F-WH-F-[facility] Peripheral Pulse Rate 83 bpm 02/22/2022 13:26:00 1712Z-OU-I-[facility] Systolic Blood Pressure 114 mm[Hg] 02/22/19 23 13:26:00 2800Z-JO-K-[facility] Diastolic Blood Pressure 75 mm[Hg] 023 13:26:00 6327W-NM-D-[facility] Respiratory Rate 16 br/min 08/24/2022 14:59:00 0569L-AC-E-[facility] Peripheral Pulse Rate 78 bpm 08/24/2022 14:59:00 9942W-ZN-D-72[facility] Mean Arterial Pressure, Calc 85 mm[Hg] 08/24/2022 14:59:00 8929L-WK-N-72[facility] Blood Pressure Manual Automatic 08/24/2022 14:59:00 5829A-UH-I-72[facility] BP Site Right arm 08/24/2022 14:59:00 5522L-NX-L-72[facility] Temperature Oral 36.9 Carrie 08/24/2022 14:59:00 5370X-MU-X-72[facility] Systolic Blood Pressure 125 mm[Hg] 08/25/19 23 14:59:00 1518W-MY-R-72[facility] Diastolic Blood Pressure 65 mm[Hg] 023 14:59:00 6351E-NF-F-[facility] Respiratory Rate 14 br/min 06/11/2023 12:11:00 6783Z-DX-P-[facility] BP Site Left arm 06/11/2023 12:11:00 6948G-OK-R-[facility] Blood Pressure Manual Automatic 06/11/2023 12:11:00 4775Q-AY-G-66th [facility] Systolic Blood Pressure 135 mm[Hg] 06/11/19 24 12:11:00 3903N-EC-F-66th [facility] Diastolic Blood Pressure 85 mm[Hg] 024 12:11:00 5451X-YJ-X-66th [facility] Mean Arterial Pressure, Calc 102 mm[Hg] 06/11/2023 12:11:00 9972N-OZ-H-66th [facility] Peripheral Pulse Rate 80 bpm 06/11/2023 12:11:00 8911E-UU-B-66th [facility] Temperature Oral 36.9 Carrie 10/19/2021 15:52:00 6105X-PH-S-72Nd [facility] BP Site Right arm 10/19/2021 15:52:00 4275C-BC-A-72Nd [facility] Blood Pressure Manual Automatic 10/19/2021 15:52:00 8244Y-YC-F-72Nd [facility] Respiratory Rate 16 br/min 05/29/2022 16:28:00 5171T-ES-D-72Nd [facility] BP Site Right arm 05/29/2022 16:28:00 8354C-XJ-L-72Nd [facility] Blood Pressure Manual Automatic 05/29/2022 16:28:00 8791V-OK-O-72Nd [facility] Systolic Blood Pressure 138 mm[Hg] 05/30/19 23 16:28:00 4725A-YG-G-72Nd [facility] Diastolic Blood Pressure 88 mm[Hg] 023 16:28:00 9755Z-RA-Y-72Nd [facility] Mean Arterial Pressure, Calc 105 mm[Hg] 05/29/2022 16:28:00 9737Q-IV-I-72Nd [facility] Peripheral Pulse Rate 80 bpm 05/29/2022 16:28:00 6903W-RZ-F-72Nd [facility] Temperature Oral 36.8 Carrie 05/29/2022 16:28:00 8655W-BN-N-72Nd [facility] Peripheral Pulse Rate 100 bpm 06/28/2022 16:32:00 7782L-AB-AKZ-59th [facility] Respiratory Rate 16 br/min 07/24/2022 15:31:00 1648J-AU-S-72Nd [facility] Temperature Oral 36.7 Carrie 07/24/2022 15:31:00 1242J-AC-Y-72Nd [facility] BP Site Right arm 07/24/2022 15:31:00 5114D-QL-I-72Nd [facility] Blood Pressure Manual Automatic 07/24/2022 15:31:00 0556O-EH-M-72Nd [facility] Systolic Blood Pressure 138 mm[Hg] 07/25/19 23 15:31:00 5750E-BP-L-72Nd [facility] Diastolic Blood Pressure 89 mm[Hg] 023 15:31:00 5313T-YX-B-72Nd [facility] Mean Arterial Pressure, Calc 105 mm[Hg] 07/24/2022 15:31:00 5028D-EI-G-72Nd [facility] Peripheral Pulse Rate 97 bpm 07/24/2022 15:31:00 7295L-LQ-E-72Nd [facility] Temperature Oral 36.9 Carrie 06/28/2022 14:39:00 0624Z-JY-LWG-59th [facility] Peripheral Pulse Rate 115 bpm 06/28/2022 14:39:00 0534P-LE-XKI-59th [facility] Respiratory Rate 18 br/min 06/28/2022 14:39:00 9312V-PL-QFW-59th [facility] Systolic Blood Pressure 140 mm[Hg] 06/29/19 23 14:39:00 1019N-HA-OHQ-59th [facility] Diastolic Blood Pressure 90 mm[Hg] 023 14:39:00 9923T-OD-RNZ-59th [facility] Temperature Oral 36.7 Carrie 05/26/2021 13:38:00 6247R-KR-G-72Nd [facility] Encounters Combined list of: 1) Encounters from Department of Veterans Affairs facilities going backup to the last 18 months, not all VA inpatient encounters are included; 2) 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 Location Location Details Encounter Type Encounter Number Reason For Visit Attending Provider ADM Date DC Date Status Disposition [place] [address]([facility], [place] (inactive )) OUTPATIENT [id number] gtep KEEGAN WINTERS 03/10 Released w/o Limitations [facility] [place] [address](Z [facility] e, [place] (inacti ve)) [employer]([facility]) OUTPATIENT [id number] chest pain while coughin DALIA Brasher 04/21 Released w/o Limitations [employer]([facility]) [facility]) OUTPATIENT [id number] nausea /hot /cold CARITO AMEZCUA 11/29 Sick at Home/Quarter s [facility]( Family Practic e Clinic- [facility] Element ) Michael [facility] - Main) TELE CONSULT [id number] JOSE HEALY 05/14 [facility]( [facility] Physica l Therapy - Main) [facility] Element) OUTPATIENT [id number] hip pain MATTIE AHN 07/06 Released w/o Limitations [facility] ) [facility] Element) OUTPATIENT [id number] 21 YRS OLD FEMALE F/U ANTIBIO TICS MATTIE AHN M 07/26 Released w/o Limitations [facility]- [facility] ) [facility] - Main) OUTPATIENT [id number] MARVIN BRUNO R 09/10 Released w/o Limitations [facility]( [facility] Physica l Therapy - Main) Michael [facility] - Main) OUTPATIENT [id number] MARVIN BRUNO 09/10 Released w/o Limitations [facility]( [facility] Physica l Therapy - Main) [facility] Therapy - Main) OUTPATIENT [id number] MARVIN BRUNO 10/19 Released w/o Limitations [facility]( [facility] Physica l Therapy - Main) [facility] Therapy - Main) OUTPATIENT [id number] MARVIN BRUNO 10/25 Released w/o Limitations [facility]( [facility] Physica l Therapy - Main) [facility] ) OUTPATIENT [id number] pap MATTIE AHN 01/29 Released w/o Limitations [facility]( Family Medicin e Residen cy) [facility] ) TELE CONSULT [id number] Review PAP TRACY WILLIAM 02/07 [facility]( Family Medicin e Residen cy) [facility](Gy necology Clinic) TELE CONSULT [id number] PAP RESULTS ZAMZAM PLATA 02/08 [facility]( Gynecol ogy Clinic) [facility] ) OUTPATIENT [id number] f/u meds MATTIE AHN 05/09 Released w/o Limitations [facility]( Family Medicin e Residen cy) [facility] ) TELE CONSULT [id number] refill control KYLE RUANONEL 07/29 [facility]( Family Medicin e Residen cy) Michael [facility] ) OUTPATIENT [id number] FEVER,H EADACHE ,COLD,C OUGH,CO NGESTIO N RECTO, PRANAV E 07/30 Released w/o Limitations [facility]( Family Medicin e Residen cy) Imchael [facility] ) OUTPATIENT [id number] YEIMI Sam 10/08 Released w/o Limitations [facility]( Family Medicin e Residen cy) Michael [facility](Gy necology Clinic) OUTPATIENT [id number] JOSH DOYLE 12/25 Released w/o Limitations [facility]( Gynecol ogy Clinic) [facility] Therapy - Main) OUTPATIENT [id number] MARVIN BRUNO 01/14 Released w/o Limitations [facility]( [facility] Physica l Therapy - Main) [facility] Therapy - Main) OUTPATIENT [id number] MARVIN BRUNO 01/14 Released w/o Limitations [facility]( [facility] Physica l Therapy - Main) Michael [facility] ) OUTPATIENT [id number] pre-dep MYLES Jimenez 01/22 Released w/o Limitations [facility]( Family Medicin e Residen cy) Theater Facility OUTPATIENT [id number] 04/19 Released w/o Limitations [facility] OUTPATIENT [id number] 05/11 Released w/o Limitations [facility] OUTPATIENT [id number] 05/24 Released w/o Limitations Theater Facilit y [facility] ) TELE CONSULT [id number] hcg DUGLASDANIJOVANY M 07/28 [facility] Medic[facility] Residen cy) Michael Lehman [facility] ) OUTPATIENT [id number] COUGH/ CONGEST ION JORGE MANZANO Meena 09/07 Released w/o Limitations [facility]( Family Medicin e Residen cy) Michael Le[facility] Therapy - Main) OUTPATIENT [id number] L shoulde r pain JOSE HEALY 09/17 Released w/o Limitations [facility] Therapy - Main) Michael Lehman [facility] ) OUTPATIENT [id number] PHA YEE FINLEY 10/20 Released w/o Limitations [facility] Family Medicin e Residen cy) Michael Lehman [facility] ) OUTPATIENT [id number] lft leg pain PEG COLE 12/09 Released w/o Limitations [facility]( Family Medicin e Residen cy) [facility]) OUTPATIENT [id number] NEW PT APPT HUSAM JOHNSON 01/04 Released w/o Limitations [facility] Neurol[facility] gy [facility]) Michael Le[facility] ) TELE CONSULT [id number] ER f/u call LOBO PEARSON 01/19 [facility]) Michael Lehman [facility] ) OUTPATIENT [id number] f/u ER visit, needs allergi y meds PEG COLE 01/22 Released w/o Limitations [facility]( Family Medicin e Residen cy) Michael Le[facility] - Main) OUTPATIENT [id number] [facility] JOSE HEALY Mat 02/23 Released w/o Limitations [facility] - Main) [facility] - Main) OUTPATIENT [id number] JOSE HEALY Mat 02/25 Released w/o Limitations [facility]( [facility] Therapy - Main) [facility] Therapy - Main) OUTPATIENT [id number] MONET JOSE Mat 03/01 Released w/o Limitations [facility]( [facility] Therapy - Main) [facility] - Main) TELE CONSULT [id number] rad results JOSE HEALY Mat 03/15 [facility] - Main) [facility](Or thopedics Clinic) OUTPATIENT [id number] joint pain, localiz ed in lt knee TONY ALDRIDGE 04/06 Released w/o Limitations [facility]) [facility](Or thopedics Clinic) OUTPATIENT [id number] preop for lft knee scope TONY ALDRIDGE 04/13 Released w/o Limitations [facility]) [facility](Pr e-Op Clinic) OUTPATIENT [id number] Pas entered the order CRISTOBAL HELM 04/13 Released w/o Limitations [facility]) [facility](Or [facility]opedics Clinic) TELE CONSULT [id number] Post- Op f/u telepho SON Guerrier 04/16 [facility]) Michael Le[facility](Or thopedics Clinic) OUTPATIENT [id number] s/p lft knee scope LUIS CARLOS, TONY Wetzel 04/29 Released w/o Limitations [facility]( Orthope dics Clinic) [facility] OUTPATIENT [id number] sinus AMADO FRIEDMAN 04/30 Released w/o Limitations [facility]( Family Medicin e Residen cy) [facility] ) OUTPATIENT [id number] reactio n to meds ARPAN MENA 05/06 Released w/o Limitations [facility]( Family Medicin e Residen cy) [facility] ) OUTPATIENT [id number] possibl e strep throat JOSE VITAL 05/18 Released w/o Limitations [facility]( Family Medicin e Residen cy) [facility] ) OUTPATIENT [id number] was put on z-briseida not getting better AMADO FRIEDMAN 05/21 Released w/o Limitations [facility]( Family Medicin e Residen cy) [facility] ) OUTPATIENT [id number] FEELING ILL MISSY SZYMANSKI 08/03 Released w/o Limitations [facility]( Family Medicin e Residen cy) [facility] ) OUTPATIENT [id number] BECKIE HORNE 12/23 Released w/o Limitations [facility]( Family Medicin e Residen cy) [facility] ) TELE CONSULT [id number] MAMIE Childers 12/23 [facility]( Family Medicin e Residen cy) [facility]) OUTPATIENT [id number] follow- up PHA web assessm ent sleep problem s MAMIE CHILDS 01/17 Released w/o Limitations [facility]( [facility]) [facility]) OUTPATIENT [id number] MAMIE GOMEZ 01/27 Released w/o Limitations [facility]( [facility]) [facility] ) TELE CONSULT [id number] MAMIE Reed 01/28 [facility]( [facility] e [facility]) [facility] Res[facility] ) OUTPATIENT [id number] [facility] Sleep Class DOUGLAS ACEVEDO 02/23 Released w/o Limitations [facility]( [facility]) [facility]) OUTPATIENT [id number] F/U MAMIE CHILDS 03/11 Released w/o Limitations [facility]( [facility]) [employer]) OUTPATIENT [id number] sleep concern s ASHLEY TIWARI 06/02 Released w/o Limitations [employer](Z [employer] [employer]) [employer]([facility]) OUTPATIENT [id number] sleep d/o per ANIBAL Vazquez 06/09 Released w/o Limitations [employer]([facility]) [employer] [facility]) OUTPATIENT [id number] f/u echocar YAA Sevilla 08/01 Released w/o Limitations [employer]([facility] [employer] [employer]) [facility] [employer]) TELE CONSULT [id number] Please notify pt of Echo results BIJU AN 08/09 [employer](Z ZDouglas Lak ALF Gold) [employer] [facility] [employer]) TELE CONSULT [id number] [employer] Recieve d for cardiol ogy JOSE Ochoa 10/04 [employer]([facility] [facility] Blue) [employer]([facility] [employer] [facility]) OUTPATIENT [id number] f/u chest issues BALDEMAR HAMILTON Mat 11/14 Released w/o Limitations [employer]([facility] [employer] [facility] Gold) [employer]([place] [facility]) OUTPATIENT [id number] f/u on sleep issues BALDEMAR HAMILTON Mat 11/17 Released w/o Limitations [employer]([facility] [employer] [facility] Gold) [employer]([facility]) OUTPATIENT [id number] Holter GIOVANNI BLACKMON 11/21 Released w/o Limitations [employer](L ak Cardiol ogy) [employer]([facility]) OUTPATIENT [id number] Holter interpr etation RANDY LIGHT 11/22 Released w/o Limitations [employer](L ak Interna l Medicin e Clinic) [employer]([facility]) OUTPATIENT [id number] Stress TEst GIOVANNI BLACKMON 12/09 Released w/o Limitations [employer](L ak Cardiol ogy) [employer]([facility]) OUTPATIENT [id number] Stress TEst interpr etation RANDY LIGHT 12/09 Released w/o Limitations [employer](L ak Interna l Medicin e Clinic) [employer]([facility]) OUTPATIENT [id number] f/u smoking cessati on BALDEMAR HAMILTON Mat 12/22 Released w/o Limitations [employer]([facility] [employer] [facility]) [employer]([facility] [facility] Gold) OUTPATIENT [id number] WALKIN PREGNAN CY TEST LISA MATA 04/06 Released w/o Limitations [employer]([facility] [employer] [facility]) [employer]([facility]) OUTPATIENT [id number] Notes Entered by: Felton HERNÁNDEZ 24 Apr 2011 1439 ------- ------- ------- ------- -- PHA MARCE HERNÁNDEZ 04/23 Released w/o Limitations [employer]( [facility] [employer] [facility] Gold) [employer]([facility] [employer] [facility]) TELE CONSULT [id number] Notes Entered by: JOANNA JONES 25 Apr 2011 1247 ------- ------- ------- ------- -- PHA: Nurse f/u BALDEMAR HAMILTON 04/24 [employer]( [facility] [place]) [employer]([place]STINA [facility]) OUTPATIENT [id number] f/u PHA: Chest pain/ti ghtness f/u BALDEMAR HAMILTON 05/10 Released w/o Limitations [employer]([facility] Ruddy [facility] [place]) [employer]([facility]) OUTPATIENT [id number] PHA: sleep, anxiety , 12/18 depress ed, hx: chest tight/P x ANIBAL THORNE 05/11 Released w/o Limitations [employer]([facility]) [facility]([place] [facility]) OUTPATIENT [id number] f/u breathi ng BALDEMAR Claudio 05/31 Released w/o Limitations [employer]([facility] Ruddy ALF Gold) [employer]([facility]) OUTPATIENT [id number] Pre/Pos t PFT JOSE MOTA 06/04 Released w/o Limitations [employer]([facility]) [employer]([facility]) OUTPATIENT [id number] Notes Entered by: JOSE MOTA 05 Jun 2011 1533 ------- ------- ------- ------- -- Spirome try Interpr etation RANDY LIGHT 06/04 Released w/o Limitations [employer]( ak Interna l Medicin e Clinic) [employer]([facility]) OUTPATIENT [id number] needs ref. for allergy testing BALDEMAR HAMILTON 06/11 Released w/o Limitations [employer](Z DouglasZ Lak ALF Gold) [employer]([facility]) OUTPATIENT [id number] JOSE Tom 06/12 Released w/o Limitations [employer](L mt Pulmona ry Clinic) [employer]([facility]) OUTPATIENT [id number] Notes Entered by: JOSE MOTA 13 Jun 2011 1615 ------- ------- ------- ------- -- CURTIS Arthur 06/12 Released w/o Limitations [employer](L [facility] Allergy Clinic) [employer]([facility]) OUTPATIENT [id number] Notes Entered by: PRETTY BOURGEOIS 14 Jun 2011 1552 ------- ------- ------- ------- -- Allergy Skin Testing CURTIS URIAS 06/13 Released w/o Limitations [employer](L [facility] Allergy [facility]) [employer]([facility] ALF Gold) OUTPATIENT [id number] Notes Entered by: ROMAN RASMUSSEN 22 Jun 2011 0809 ------- ------- ------- ------- -- WALK IN UTI BALDEMAR HAMILTON 06/21 Released w/o Limitations [employer](Z DouglasZ Lak ALF Gold) [employer](ZKRISTINA Lak ALF Gold) OUTPATIENT [id number] f/u on tests for asthma BALDEMAR HAMILTON 06/22 Released w/o Limitations [employer](Z DouglasZ Lak ALF Gold) [employer](ZKRISTINA Lak ALF Gold) OUTPATIENT [id number] Notes Entered by: Meena ALBERT 18 Jul 2011 0902 ------- ------- ------- ------- -- WALK IN URI BALDEMAR HAMILTON 07/17 Released w/o Limitations [employer](Z ZZ Lak ALF Gold) [employer]([facility] [employer] [facility]F Gold) OUTPATIENT [id number] F/U Asthma per BALDEMAR Haney 07/19 Released w/o Limitations [employer](Z ZZ Lak ALF Gold) [employer](ZZ[facility] ALF Gold) TELE CONSULT [id number] KARTHIK WILSON 09/25 [employer](Z ZZ Lak ALF Gold) [employer](ZZZ [employer] ALF Gold) OUTPATIENT [id number] f/u asthma BALDEMAR HAMILTON 10/08 Released w/o Limitations [employer](Z ZZ Lak ALF Gold) [employer](ZKRISTINA _Lak_FPC_ Silver) OUTPATIENT [id number] POSS MARINA SHELBY 01/17 Released w/o Limitations [employer](Z ZZ_Lak_ FPC_Sil keren) [employer]([facility] Lak ALF Gold) OUTPATIENT [id number] PAP BALDEMAR HAMILTON 02/01 Released w/o Limitations [employer](Z ZZ Lak ALF Gold) [employer]([facility] ALF Gold) OUTPATIENT [id number] LALO VERONICA 03/07 Released w/o Limitations [employer](Z ZZ [employer] ALF Gold) [employer](ZZZ _Lak_FPC_ Red) OUTPATIENT [id number] possibl e sinus infecti on/coug h/elishage MARINA Baxter 03/13 Released w/o Limitations [employer](Z ZZ_Lak_ FPC_Red ) [employer]([facility]) OUTPATIENT [id number] Asthma RUFUS TATIANA S 03/21 Released w/o Limitations [employer](L ak Interna l Medicin e Clinic) [employer]([facility]) OUTPATIENT [id number] Notes Entered by: RHONDA BLACKMON 21 Mar 2012 0838 ------- ------- ------- ------- -- Pre/Pos t-BGAC GIOVANNI BLACKMON Mat 03/21 Released w/o Limitations [employer](Mat holguin Pulmona ry Clinic) [employer]([facility] Physical Medicine [facility]) OUTPATIENT [id number] Notes Entered by: Meena ALBERT 03 Jun 2012 1458 ------- ------- ------- ------- -- Running Clinic WALE ENRIQUE A 06/03 Released w/o Limitations [employer](Mat holguin Physica l Medicin e [facility]) [employer]([facility] [facility]) OUTPATIENT [id number] Notes Entered by: AMADO JOHNSON 18 Jun 2012 1004 ------- ------- ------- ------- -- AMADO BLUM 06/18 Released w/o Limitations [employer]( [employer] ALF Gold) [employer]([facility] Emergency Room) OUTPATIENT [id number] VANDA YOUSIF 01/09 Released w/o Limitations [employer](Mat holguin Emergen cy Room) [employer]([facility] [employer] [facility]) OUTPATIENT [id number] swollen foot / rash on top MARINA PEREZ 01/14 Released w/o Limitations [employer]([facility] [employer] [facility]F [facility]) [employer]([facility] [employer] ALF Gold) OUTPATIENT [id number] f/u for celluit is of foot per Mrs. Melara on MARINA PEREZ 01/21 Released w/o Limitations [employer]( [employer] [facility] Gold) [employer]([facility] [employer] ALF Gold) OUTPATIENT [id number] LALO VERONICA 03/04 Released w/o Limitations [employer]( [facility] [employer] [facility] Gold) [employer]([facility] [employer] ALF Gold) TELE CONSULT [id number] Notes Entered by: ANYI QUESADA 06 Mar 2013 1620 ------- ------- ------- ------- -- Asthma f/u KALINAUSKA S, LISA D 03/06 [employer](Z ZZ Lak ALF Gold) [employer](Lak In and Out Processin g) TELE CONSULT [id number] Notes Entered by: NICOLASA GRAFF 18 Mar 2013 0954 ------- ------- ------- ------- -- Right Finish IMER RAMOS 03/18 [employer](L ak In and Out Process ing) [employer](Opt ometry Clinic) OUTPATIENT [id number] Annual eye exam LANCE TAMAYO 05/06 Released w/o Limitations [employer](O ptometr y Clinic) [employer]([facility]) OUTPATIENT [id number] pft DOUGLAS JIMENEZ 05/06 Released w/o Limitations [employer]([facility]) [employer] OUT[facility] [id number] Annual RILO for asthma DOUG CLARKE 05/07 Released w/o Limitations [employer]( HC Lancers ) [facility] Group([facility]) OUTPATIENT [id number] discuss allergi es DOUG CLARKE 05/26 Released w/o Limitations [employer]( [facility] ) [facility]) TELE CONSULT [id number] Notes Entered by: KEE FOSS 06 Jun 2013 1529 ------- ------- ------- ------- -- Inproce ssing Review JAVI FOSS 06/06 Other Not Elsewhere Classified [employer](P andemic Virus [facility]) [employer](ENT Clinic) OUTPATIENT [id number] DEVIATE D NASAL SEPTUM (ACQUIR ED) BONNIE PAYAN 06/10 Released w/o Limitations [employer](E NT Clinic) [employer](BOM C Review Clinic) OUTPATIENT [id number] AF QUINTON KUMARI 09/08 Released w/o Limitations [employer](B [facility]) [employer]([facility]) OUTPATIENT [id number] cough, cold, congest ion KALEIGH ALEGRIA 12/09 Released w/o Limitations [facility]) OUTPATIENT [id number] f/u Jan [facility] ER; chest pains- muscula r-skelt al chest pains ANA NARVAEZ 01/29 Released w/o Limitations [facility] Medical [facility]) OUTPATIENT [id number] recurri ng headach es KALEIGH ALEGRIA 02/10 Released w/o Limitations [facility] Group([facility] ) [address] [place] [address]([facility]) TELE CONSULT [id number] Notes Entered by: MILLI GARCIA 16 Feb 2014 1109 ------- ------- ------- ------- -- Network Results - ER - [id number] ANA NARVAEZ 02/[address] [facility] Medical Group([facility] Medical [facility]) OUTPATIENT [id number] sinus pressur e/conge macie, lighthe aded, trouble breathi ruthie(asth ma) ANA NARVAEZ 05/14 Sick at Home/Quarter s [facility] Medical [facility] ) [facility] Group([facility]) OUTPATIENT [id number] Asthma DOUGLAS JIMENEZ 06/03 Released w/o Limitations [facility] Medical [facility]) [facility] Medical [facility]) OUTPATIENT [id number] Annual RILO eval for asthma. On ALC C-2 ANA NARVAEZ 06/03 Released w/o Limitations [facility] Medical [facility] Medical [facility]) OUTPATIENT [id number] right knee/in jured last weekend /roller derby/n ot getting better ANA NARVAEZ 07/31 Released w/o Limitations [facility] Medical [facility] Medical [facility]) OUTPATIENT [id number] ad af pha non fly non prp HANDY RODRIGUEZ 09/17 Released w/o Limitations [employer]([facility]) [employer]([facility]) OUTPATIENT [id number] f/u from low potassi um ANA NARVAEZ 10/19 Released w/o Limitations [employer]([facility]) OUTPATIENT [id number] discuss getting 422 updated /asthma f/u KALEIGH ALEGRIA 11/06 Released w/o Limitations [employer]([facility] Medical Group([facility]) OUTPATIENT [id number] RETRAIN ING AF BROOKE GREEN 11/09 Released w/o Limitations [facility](Opt ometry Clinic) OUTPATIENT [id number] routine , applica [facility]ion to [facility] JANESSA Kaur 11/11 Released w/o Limitations [employer](O ptometr y Clinic) [facility]) OUTPATIENT [id number] medicat ion refills -allery and asthma ANA NARVAEZ 01/05 Released w/o Limitations [facility] ) [address] [place] [address]([facility]) TELE CONSULT [id number] Notes Entered by: CLYDE REYES 05 Mar 2015 1449 ------- ------- ------- ------- -- Back pain CLYDE REYES 03/05 Referred for Appointment [facility] Group([facility]) [facility]) OUTPATIENT [id number] low back pain ANA NARVAEZ 03/05 Released w/o Limitations [facility]) [address] [place] [address]([facility]) OUTPATIENT [id number] cyst on lower back,pa inful ANA NARVAEZ 05/16 Released w/o Limitations [facility] Medical Group([facility]) [facility] Medical [facility]) OUTPATIENT [id number] F/U for fatigue and headach e, chest discomf ort, H/O low potassi umcristina ANA NARVAEZ 06/14 Released w/o Limitations [employer] [employer]([facility]) TELE CONSULT [id number] Notes Entered by: Manjit NARVAEZ 18 Jun 2015 1540 ------- ------- ------- ------- -- Lab results ABBIE BRADSHAW 06/17 Referred for Appointment [employer]( [facility] [employer] OUTPATIENT [id number] WALDO CHAUDHRY 08/03 Released w/o Limitations [employer]( [facility] [employer]([facility]) OUTPATIENT [id number] F/U on asthma ANA NARVAEZ 08/17 Released w/o Limitations [employer]([facility]) [employer]([facility]) TELE CONSULT [id number] Notes Entered by: Shelli VILLANUEVA 01 Sep 2015 1207 ------- ------- ------- ------- -- Medical Out Process ing JILLIAN VILLANUEVA 08/31 Other Not Elsewhere Classified [employer]([facility]) [facility], [place] [address](In and Out [employer]) TELE CONSULT [id number] Notes Entered by: VENITA GRANADOS 15 Oct 2015 1433 ------- ------- ------- ------- -- In Process WILI Velez 10/14 [facility] [place] [address](I n and Out Process Ze gomez) [facility], [place] [address]([facility] Med Lift Team,WHAS C) OUTPATIENT [id number] EVAL CONDITI ON [ TRANSIE NT PCS ] СВЕТЛАНА MCCLELLAND 11/01 Released w/o Limitations [facility] [place] [address](F am Med Lift Team,[facility]) [facility] [place] [address]([facility] Team G) OUTPATIENT [id number] EVAL MORALES, NAUSEA, FATIGUE PCS:SORAIDA MCDONALD 11/21 Released w/o Limitations [facility] [place] [address](Mat [facility] Team G) [facility] [place] [address]([facility] Team G) TELE CONSULT [id number] Notes Entered by: Damari OLIVEIRA 23 Nov 2015 0942 ------- ------- ------- ------- -- OSIRIS Hernandez 11/22 [facility] [place] [address](Mat [facility] Team G) [facility] [place] [address]([facility] Team G) TELE CONSULT [id number] Notes Entered by: JU ORLANDO 23 Nov 2015 1456 ------- ------- ------- ------- -- Lab results - pending GINETTE Rendon 11/22 Referred for Appointment [facility] [place] [address]([facility] Team G) [facility] [place] [address](EKG Procedure , [facility]) OUTPATIENT [id number] Dizzine ss and giddine ss/BLANCHE AGUIRRE 12/01 Released w/o Limitations [facility] [place] [address](E KG Procedu re, [facility]) [facility] [place] [address](Car diology, [facility]) OUTPATIENT [id number] Notes Entered by: LEXI CASEY 06 Dec 2015 0933 ------- ------- ------- ------- -- SUSHANT CASTROAN J 12/05 Released w/o Limitations [facility] [place] [address](Bertha carreon, [facility]) [facility] [place] [address](Bernardo de la cruz [facility] Team G) OUTPATIENT [id number] F/U LABS SORAIDA ORLANDO 12/06 Released w/o Limitations [facility] [place] [address](Mat trotter [facility] Team G) [facility] [place] [address](EKG Procedure , [facility]) OUTPATIENT [id number] ELLA CAREY 12/12 Released w/o Limitations [place] [address](E KG Procedu re, [facility]) [facility] [place] [address](Car diology, [facility]) OUTPATIENT [id number] GXT PREETI HARRELL 12/19 Released w/o Limitations [facility] [place] [address](Bertha carreon, [facility]) [facility] [place] [address](Car diology, [facility]) OUTPATIENT [id number] Notes Entered by: LUIS ALBERTO CAREY RA 22 Dec 2015 1034 ------- ------- ------- ------- -- 24 Hour Holter/ GXT Reports ERIS ALDANA 12/21 Released w/o Limitations [facility] [place] [address](Bertha carreon, [facility]) [facility] [place] [address](Sle ep Disorder Center, [facility]) OUTPATIENT [id number] Notes Entered by: RYAN PADILLA 22 Dec 2015 1058 ------- ------- ------- ------- -- Sleep Group RYAN PADILLA 12/21 Released w/o Limitations [place] [address](S leep Disorde r Center, [facility]) [facility] [place] [address]( Clin Hlth Psych [facility]) OUTPATIENT [id number] Sleep Grp WESLEY VILLANUEVA 12/21 Released w/o Limitations [facility] [place] [address](B H Clin Hlth Psych [facility]) [facility] [place] [address](EKG Procedure , [facility]) OUTPATIENT [id number] stress echo XOCHITL CASEY 12/27 Released w/o Limitations [facility] [place] [address](E KG Procedu re, [facility]) [facility] [place] [address](Car diology, [facility]) OUTPATIENT [id number] Notes Entered by: LEXI CASEY 30 Dec 2015 0757 ------- ------- ------- ------- -- ERIS GREGG 12/29 Released w/o Limitations [facility] [place] [address](Bertha carreon, [facility]) [facility] [place] [address](Car diology, [facility]) OUTPATIENT [id number] Echo, Gxt, and 24 hr holter mel HARRELL PREETI N 12/29 Released w/o Limitations [facility] [place] [address](Bertha carreon, [facility]) [facility] [place] [address]([facility]) OUTPATIENT [id number] LUIS E Cummins 01/23 Released w/o Limitations [facility] [place] [address](Julio Velae r [facility]) [facility] [place] [address](Bernardo de la cruz [facility] Team A) OUTPATIENT [id number] F/U Sleep Study JAZLYN AYOUB 02/08 Released w/o Limitations [facility] [place] [address](Mat trotter [facility] Team A) [facility] [place] [address](Beh avioral [facility]) OUTPATIENT [id number] Notes Entered by: DARCIE PERSON 10 Feb 2016 0940 ------- ------- ------- ------- -- Walk-in per [place], Fatigue and Sleep concern julio WILI TELLEZ Mat 02/09 Released w/o Limitations [facility] [place] [address](B ehbev al th [facility]) [facility] [place] [address](Phy sical Exams, [facility]) OUTPATIENT [id number] Notes Entered by: SD WHELAN 26 Apr 2016 1051 ------- ------- ------- ------- -- Annual Tri Service PHA CHRISTEL MCFARLAND 04/26 Released w/o Limitations [facility] [place] [address](P hysical Exams, [facility]) [facility] [place] [address](Mil Trng Consult [facility] 737TRG) OUTPATIENT [id number] Notes Entered by: Felton WEAVER 21 Nov 2016 1101 ------- ------- ------- ------- -- MTI Annual Resilie ncy Consult PEG Montague 11/21 Released w/o Limitations [facility] [place] [address](M il Trng Consult [facility]) [facility] [place] [address](Bernardo de la cruz [facility] Team A) OUTPATIENT [id number] ASTHMA JAZLYN AYOUB 12/01 Released w/o Limitations [facility] [place] [address](Mat trotter [facility] Team A) [facility] [place] [address](Pul [facility] Medicine, [facility]) OUTPATIENT [id number] Mild intermi ttent asthma, uncompl icated GIOVANNI ALEXANDER 12/07 Released w/o Limitations [facility] [place] [address](P ulmonar y Medicin e, [facility]) [facility] [place] [address]([facility] Team A) OUTPATIENT [id number] med ck and anuall asma ck up/whas c ANUSHKA CONNER Sixto 05/11 Released with Work/Duty Limitations [facility] [place] [address]([facility]) [facility] [place] [address](BOM C,Mahamed) OUTPATIENT [id number] BEST CONTACT NUMBER [id number] [facility] SHAKA CRENSHAW 05/17 Released w/o Limitations [facility] [place] [address](B [facility],Suraj d) [facility] [place] [address](Fam Med Lift Team,[facility] C) OUTPATIENT [id number] back pain ROBB AMADOR 06/22 Released w/o Limitations [facility] [place] [address](F am Med Lift Team,[facility]) [facility] [place] [address]([facility] ropractic Clinic, [facility]) OUTPATIENT [id number] Lumbago with sciatic a, unspeci fied side JORGE LUIS CAAL 07/24 Released w/o Limitations [facility] [place] [address](C hiropra ctic Clinic, [facility]) [facility] [place] [address]([facility] Team A) OUTPATIENT [id number] F/U CHIRO/P SUKUMAR WEIR 07/25 Released w/o Limitations [facility] [place] [address](Mat huntfaisal [facility] Team A) [facility] [place] [address]([facility] Team A) TELE CONSULT [id number] Notes Entered by: RIAN REDDY 01 Aug 2017 0725 ------- ------- ------- ------- -- PROFILE UPDATED #[id number] ECAH/CA STEFAN SUKUMAR LUCERO SHARIFA 08/01 [place] [address](Mat trotter [facility] Team A) [facility] [place] [address]([facility]) OUTPATIENT [id number] TENJORGE LUIS Woodrow 08/03 Released w/o Limitations [place] [address]([facility]) [facility] [place] [address]([facility]) OUTPATIENT [id number] transfe r pt, [facility] ALIYAH TONY 08/10 Released w/o Limitations [facility] [place] [address]([facility]) [facility] [place] [address]([facility]) OUTPATIENT [id number] ALIYAH TONY 08/30 Released w/o Limitations [facility] [place] [address]([facility]) [facility] [place] [address]([facility]) OUTPATIENT [id number] ALIYAH TONY 09/06 Released w/o Limitations [facility] [place] [address](Ber[facility]) [facility] [place] [address](Bernardo de la cruz [facility] Team A) OUTPATIENT [id number] F/U MRI RE:LOWE R BACK SUKUMAR LUCERO SHARIFA 09/13 Released w/o Limitations [facility] [place] [address](Mat trotter [facility] Team A) [facility] [place] [address]([facility]) OUTPATIENT [id number] ALIYAH TONY 09/14 Released w/o Limitations [facility] [place] [address](Bertha [facility], [facility]) [facility] [place] [address]([facility], [facility]) OUTPATIENT [id number] ALIYAH TONY 09/25 Released w/o Limitations [facility] [place] [address](Bertha [facility], [facility]) [facility] [place] [address]([facility] Team G) TELE CONSULT [id number] Notes Entered by: SA KOBE BOONE 28 Sep 2017 1442 ------- ------- ------- ------- -- More info Require d for FILIPPO ham. SUKUMAR LUCERO 09/28 [facility] [place] [address]([facility] Team G) [facility] [place] [address]([facility] Team A) OUTPATIENT [id number] SPEC-DA WG Discuss ion SUKUMAR LUCERO 10/02 Released w/o Limitations [facility] [place] [address]([facility] Team A) [facility] [place] [address]([facility]) OUTPATIENT [id number] ALIYAH TONY 10/19 Released w/o Limitations [facility] [place] [address](Bertha [facility], [facility]) [facility] [place] [address]([facility] Team A) OUTPATIENT [id number] FU - LOWER BACK PAIN SUKUMAR LUCERO 10/26 Released with Work/Duty Limitations [facility] [place] [address]([facility] Team A) [facility] [place] [address]([facility], [facility]) OUTPATIENT [id number] ALIYAH TONY 10/26 Released w/o Limitations [facility] [place] [address]([facility], [facility]) [facility] [place] [address](Chi ropractic Clinic, [facility]) OUTPATIENT [id number] ALIYAH TONY Manjit 11/08 Released w/o Limitations [facility] [place] [address](C hiropra ctic [facility], [facility]) [facility] [place] [address](Phy sical Therapy, [facility]) OUTPATIENT [id number] low back GIOVANNI OCHOA R 01/25 Released w/o Limitations [facility] [place] [address](P hysical Therapy , [facility]) [facility] [place] [address](Mil Trng Consult [facility]) OUTPATIENT [id number] Notes Entered by: MERCEDES MENDOSA 04 Feb 201812 ------- ------- ------- ------- -- MTI Annual Resilie ncy Consult ation #2 MERCEDES MENDOSA 02/04 Released w/o Limitations [facility] [place] [address](M il Trng Consult [facility]) [facility] [place] [address](Phy sical Therapy, [facility]) OUTPATIENT [id number] GIOVANNI OCHOA Manjit 02/07 Released w/o Limitations [facility] [place] [address](P hysical Therapy , [facility]) [facility] [place] [address]([facility] Team A) OUTPATIENT [id number] [facility]/SUKUMAR ABRAMS 02/26 Released with Work/Duty Limitations [facility] [place] [address](Mat trotter [facility] Team A) [facility] [place] [address](Bernardo [facility] Team A) OUTPATIENT [id number] Call SUKUMAR GOMEZ 02/28 Released w/o Limitations [place] [address](Mat huntfaisal [facility] Team A) [facility] [place] [address](Opt ometry Clinic, [facility]) OUTPATIENT [id number] EYE EXAM SULEMA GRAVES Felton 03/01 Released w/o Limitations [facility] [place] [address](O ptometr y Clinic, [facility]) [facility] [place] [address](Pul [facility] Medicine, [facility]) OUTPATIENT [id number] PFTs for NI RUSSELL 04/05 Released w/o Limitations [facility] [place] [address](P ulmonar y Medicin e, [facility]) [facility] [place] [address]([facility] Team A) TELE CONSULT [id number] Notes Entered by: BIJAN WHEELER 22 Apr 2018 0731 ------- ------- ------- ------- -- FCR/ALVIN CK PT REQUEST TO SEE PCM FOR RILO CB# [id number] GT/SUKUMAR PAYTON 04/22 [facility] [place] [address](L [facility] Team A) [facility] [place] [address]([facility] Team A) OUTPATIENT [id number] RILO--B ack and Asthma JAH MARTINES A 05/08 Released w/o Limitations [facility] [place] [address]([facility] [place] [address](BOMiguel C,Mahamed) OUTPATIENT [id number] MHA PH# [id number] SHAKA CRENSHAW A 06/13 Released w/o Limitations [facility] [place] [address](B [facility],Suraj d) [facility] [place] [address]([facility] Team A) OUTPATIENT [id number] eval rt foot big toe pain ALANA GIRALDO 06/17 Released w/o Limitations [facility] Militar [place] [address](L acklfaisal [facility] Team A) ROSSY [facility] [place] [address](Bernardo de la cruz Op_Med Team D,[facility]) OUTPATIENT [id number] ASTHMAT IC PT WITH COUGH/C ELZA PER PT [LEGGOE ] EARL MUÑOZ 12/23 Released w/o Limitations [facility] [place] [address]([facility] ) [employer](Pre ventive Medicine Office) OUTPATIENT [id number] Notes Entered by: WOODY PECK 16 Apr 2019 1420 ------- ------- ------- ------- -- MEHP In- Process ing WOODY REGALADO 04/16 Released w/o Limitations [employer](P reventi ve Medicin e Office) [employer](War rior Op Med Clin Team A-AD) TELE CONSULT [id number] Notes Entered by: SELENA JUAN 06 May 2019 1530 ------- ------- ------- ------- -- Med Refill- SOCO Yip 05/05 [employer](W arrior Op Med Clin Team A-AD) [employer](War rior Op Med Clin Team A-AD) OUTPATIENT [id number] walk in:f/u SOCO BIRD 05/08 Released w/o Limitations [employer](W arrior Op Med Clin Team A-AD) [employer](BOM C_MHA) OUTPATIENT [id number] mha//ds n [phone] SHAWNA LARKIN 07/02 Released w/o Limitations [employer](B O[facility]_MHA ) [employer](Occ upational Medicine) OUTPATIENT [id number] resp FLORENCIA Nj 08/11 Released w/o Limitations [employer](O ccupati onal Medicin e) [employer](Fam faiza Med Clin Team B Non-AD) OUTPATIENT [id number] Notes Entered by: MARJORIE CONROY 19 Aug 2019 1545 ------- ------- ------- ------- -- GABRIELLEID JESSICA WALSHMARTY RACHELL 08/18 Sick at Home/Quarter s [employer](F amily Med Clin Team B Non-AD) [employer]([facility] ght Med Clinic) TELE CONSULT [id number] 5 results /update RAJEEVMENDY Hemant 08/20 [employer](F light Med Clinic) [employer](War rior Op Med Clin Team A-AD) TELE CONSULT [id number] 9 Notes Entered by: LORRAINE SCHULZ 26 Aug 2019 0707 ------- ------- ------- ------- -- BALWINDER Fernando 08/25 [employer](W arrior Op Med Clin Team A-AD) [employer](War rior Op Med Clin Team A-AD) TELE CONSULT [id number] Notes Entered by: LORRAINE SCHULZ 26 Aug 2019 0819 ------- ------- ------- ------- -- BALWINDER Siu 08/25 [employer](W arrior Op Med Clin Team A-AD) [employer](War rior Op Med Clin Team A-AD) TELE CONSULT [id number] Notes Entered by: LORRAINE SCHULZ 27 Aug 2019 0929 ------- ------- ------- ------- -- BALWINDER Siu 08/26 [employer](W arrior Op Med Clin Team A-AD) [employer](War rior Op Med Clin Team A-AD) TELE CONSULT [id number] Notes Entered by: Shelli RUBIO 06 Nov 2019 0828 ------- ------- ------- ------- -- Conchita witt Appoint ment YEIMI Michael 11/05 Referred for Appointment [employer](W arrior Op Med Clin Team A-AD) [employer](War rior Op Med Clin Team A-AD) OUTPATIENT [id number] focus and memory issues [id number] DEYSI MIRANDA LIZZ 11/10 Released w/o Limitations [employer](W arrior Op Med Clin Team A-AD) [employer](War rior Op Med Clin Team A-AD) TELE CONSULT [id number] Notes Entered by: Felton BIRMINGHAM 14 Nov 2019 1434 ------- ------- ------- ------- -- JOHNATHAN secure message DEYSI MIRANDA LIZZ 11/13 [employer](W arrior Op Med Clin Team A-AD) [employer](War rior Op Med Clin Team A-AD) TELE CONSULT [id number] Notes Entered by: ELAINE PALENCIA 19 Feb 2020 1006 ------- ------- ------- ------- -- Franko - JOHNATHAN med request GIOVANNI VARGAS 02/18 Medication Refill Forwarded [employer](W arrior Op Med Clin Team A-AD) [employer](Imm unization s) OUTPATIENT [id number] Notes Entered by: YOLANDA GRAY 25 Feb 2020 1012 ------- ------- ------- ------- -- COVID vac - walk in NANCY GABINO L 02/24 Released w/o Limitations [employer](I mmuniza tigraciela) [employer](Dis ease Managemen t [place]) TELE CONSULT [id number] 4 Notes Entered by: MAKEDA JONES 18 Mar 2020 1050 ------- ------- ------- ------- -- Jerrellue Joseph-MAKEDA Carr 03/18 Referred for Appointment [employer](D isease Managem ent [place]) [employer]( [facility] Op Med Clin Team A-AD) OUTPATIENT [id number] PFT and ARILO discuss ion [id number] DEYSI MIRANDA 04/23 Released w/o Limitations [employer](W arrior Op Med Clin Team A-AD) [employer](Dis ease Managemen t Sandy) TELE CONSULT [id number] 8 Notes Entered by: MAKEDA JONES 21 May 2020 0807 ------- ------- ------- ------- -- ADM Overdue Pap-MAKEDA Carr 05/21 Referred for Appointment [employer](Shelli howard Managem ent [place]) [employer]([facility]) OUTPATIENT [id number] BON Barnes 06/09 Released w/o Limitations [employer](G yn Clinic) [employer]( pablor Op Med Clin Team A-AD) OUTPATIENT [id number] Heart Palpata tions/2 [phone] DEYSI MIRANDA 06/11 Released w/o Limitations [employer] [employer]( [facility] Op Med Clin Team A-AD) TELE CONSULT [id number] Notes Entered by: DEYSI MIRANDA 14 Jun 2020 1318 ------- ------- ------- ------- -- lab results JESIKA EATON 06/14 Advice Assessment [employer](W arrior Op Med Clin Team A-AD) [employer](Chi ropractic Clinic) OUTPATIENT [id number] MUMTAZ BUTTERFIELD 06/18 Released w/o Limitations [employer](C hiropra ctic Clinic) [employer]([facility]) TELE CONSULT [id number] Notes Entered by: GRACIE ROSE 2020 1017 ------- ------- ------- ------- -- Pap results JADON GARCIA 06/23 Other Not Elsewhere Classified [employer](G yn [facility]) [employer](BOM C DHA/MHA) OUTPATIENT [id number] mha// [phone] SHAWNA LARKIN 06/28 Released w/o Limitations [employer](B [facility] D[facility]/MHA ) [employer](War rior Op Med Clin Team A-AD) TELE CONSULT [id number] 4 Notes Entered by: DEYSI MIRANDA 25 Aug 2020 1845 ------- ------- ------- ------- -- cardiol ogy consult TONY JASMINE 08/25 Other Not Elsewhere Classified [employer](W arrior Op Med Clin Team A-AD) [employer](War pablor Op Med Clin Team A-AD) TELE CONSULT [id number] Notes Entered by: DEYSI MIRANDA 13 Oct 2020 0739 ------- ------- ------- ------- -- Vitamin D def COLLINS, PAMELA 10/13 Released to Self Care [employer](W arrior Op Med Clin Team A-AD) [employer]([facility]) OUTPATIENT [id number] poss uti, freq urinate , urine is cloudy, painful urinati ng//[phone] JF JUAREZ 11/11 Released w/o Limitations [employer]( yn [facility]) [employer]([facility]) TELE CONSULT [id number] 9 Notes Entered by: JF CHENEY 11 Nov 2020 1039 ------- ------- ------- ------- -- urinaly sis JF JUAREZ 11/11 [employer] [employer](War rior Op Med Clin Team A-AD) TELE CONSULT [id number] Notes Entered by: DEYSI MIRANDA 17 Nov 2020 1858 ------- ------- ------- ------- -- Cardiol ogy consult update CHELSIE LOMELI 11/17 Other Not Elsewhere Classified [employer](W arrior Op Med Clin Team A-AD) [employer](War rior Op Med Clin Team A-AD) TELE CONSULT [id number] 9 Notes Entered by: Felton JASMINE 23 Nov 2020 0730 ------- ------- ------- ------- -- Prescri ption Renewal Request TONY JASMINE 11/23 Other Not Elsewhere Classified [employer](W arrior Op Med Clin Team A-AD) [employer]([facility]) TELE CONSULT [id number] Notes Entered by: JF CHENEY 26 Nov 2020 0851 ------- ------- ------- ------- -- lab results JADON GARCIA 11/26 Other Not Elsewhere Classified [employer](G yn Clinic) [employer](War rior Op Med Clin Team A-AD) TELE CONSULT [id number] 5 Notes Entered by: Sixto BURR 28 Dec 2020 0914 ------- ------- ------- ------- -- NETWORK RESULTS CARD 1 BALWINDER PURDY 12/28 [employer](W arrior Op Med Clin Team A-AD) [employer](War rior Op Med Clin Team A-AD) OUTPATIENT [id number] f/u cardiol ogy results [phone] BALWINDER PURDY 01/10 Released w/o Limitations [employer](W arrior Op Med Clin Team A-AD) [employer](War rior Op Med Clin Team A-AD) OUTPATIENT [id number] F/U from nerve pain // [phone] BALWINDER PURDY 03/09 Released w/o Limitations [employer](W arrior Op Med Clin Team A-AD) [employer](BOM C Clinical) TELE CONSULT [id number] Notes Entered by: ROMA HARRINGTON,RES TIE Q 20 Apr 2021 1431 ------- ------- ------- ------- -- Special Duty med mike garrett GAGAN NORTH 04/20 [employer]([facility] l) 309A-AF- C-66 [facility] Outpatient [id number] AUDREY [facility] 06/10 Discharge Disposition: Home or Self Care 0310A-A F-C-66t h [facility] 0A-AF- C-66 [facility] Between Visit [id number] 08/21 Discharge Disposition: Home or Self Care 0A-A F-C-66t h [facility] 0C-AF- C-66 [facility] Dental [id number] OSMEL ANAHYALPHONSO CEDENO 08/27 Discharge Disposition: Home or Self Care 0C-A F-C-66t h [facility] 0C-AF- C-66 [facility] [id number] Palpita tions,U nspecif ied asthma, uncompl icated, Nicotin e depende nce, unspeci fied, uncompl icated, Contact with and (suspec will) exposur e to air polluti on,Low back pain, unspeci fied,Pa in in left lower leg,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, 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, 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 [facility] C HEALTH ASSESSM ENT (PHA) AUDREY [facility] 09/09 Discharge Disposition: Home or Self Care 0310C-A F-C-66t h [facility] 0310M-AF- C-66th [facility] [id number] Encount er for other adminis trative examina tions,U nspecif ied asthma, uncompl icated AUDREY LEON 02/26 Discharge Disposition: Home or Self Care 0310M-A F-C-66t h [facility] Procedures Combined list of: 1) Procedures from Department of Veterans Affairs facilities going back up to thelast 18 months, not all VA non-surgical procedures are included; 2) All procedures from the Department of Defense facilities. Procedure Procedure Type Code Date Perfomer Comments Sourc e BRONCHODILATION RESPONSIVENESS, [place] [address], PRE- AND POST-BRONCHODILATOR ADMINISTRATION 2015 [facility] PREPARATION OF REPORT OF PATIENT'S PSYCHIATRIC STATUS, HISTORY, TREATMENT, OR PROGRESS (OTHER THAN FOR LEGAL OR CONSULTATIVE PURPOSES) FOR OTHER INDIVIDUALS, AGENCIES, OR INSURANCE CARRIERS 2015 DoD ELECTROCARDIOGRAM, ROUTINE ECG WITH AT LEAST 12 LEADS; WITH INTERPRETATION AND REPORT 2015 DoD DETERMINATION OF REFRACTIVE STATE 2014 DoD PURE TONE AUDIOMETRY (THRESHOLD), AUTOMATED; AIR ONLY 2014 DoD SCREENING TEST OF VISUAL ACUITY, QUANTITATIVE, BILATERAL 2014 DoD SPIROMETRY, INCLUDING GRAPHIC RECORD, TOTAL AND TIMED VITAL CAPACITY, EXPIRATORY FLOW RATE MEASUREMENT(S), WITH OR WITHOUT MAXIMAL VOLUNTARY VENTILATION 2014 DoD ELECTROCARDIOGRAM, ROUTINE ECG WITH AT LEAST 12 LEADS; WITH INTERPRETATION AND REPORT 2013 DoD DESTRUCTION (EG, LASER SURGERY, ELECTROSURGERY, CRYOSURGERY, CHEMOSURGERY, SURGICAL CURETTEMENT), OF BENIGN LESIONS OTHER THAN SKIN TAGS OR CUTANEOUS VASCULAR PROLIFERATIVE LESIONS; UP TO 14 LESIONS 2013 DoD PATIENT-INITIATED SPIROMETRIC RECORDING PER 30-DAY PERIOD OF TIME; REVIEW AND INTERPRETATION ONLY BY A PHYSICIAN OR OTHER QUALIFIED HEALTH REPORT PROGRAMMER 2013 DoD FITTING OF SPECTACLES, EXCEPT FOR APHAKIA; MONOFOCAL 2013 [facility] EDUCATION &TRAINING, PATIENT SELF-MGT QUALIFIED, NONPHYSICIAN HEALTH REPORT PROGRAMMER USING STANDARDIZED CURRICULUM, [id number] W THE PATIENT (COULD INCL CAREGIVER/FAMILY) EA 30 MIN; 5-8 PATIENTS 2010 DoD TELE ASSESS & MGT SRV PROV QUAL NONPHYS HLTH CARE PRO TO EST PAT,PARENT,GUARD NOT ORIG REL ASSESS & MGT SRV PROV W/IN PREV 7 DAYS NOR LEAD ASSESS & MGT SRV/PX W/IN NXT 24H/SOON APT; 11-20 MIN MED DIS 2009 DoD NONINVASIVE EAR OR PULSE OXIMETRY FOR OXYGEN SATURATION; SINGLE DETERMINATION 2009 DoD UNLISTED SPECIAL SERVICE, PROCEDURE OR REPORT 2009 DoD SPECIAL REPORTS SUCH INSURANCE FORMS, MORE THAN THE INFORMATION CONVEYED IN THE USUAL MEDICAL COMMUNICATIONS OR STANDARD REPORTING FORM 2009 DoD PHYSICAL THERAPY RE-EVALUATION 2009 DoD PHYSICAL THERAPY RE-EVALUATION 2009 DoD PHYSICAL THERAPY EVALUATION 2009 [facility] ELECTROCARDIOGRAM, ROUTINE ECG WITH AT LEAST 12 LEADS; INTERPRETATION AND REPORT ONLY 2008 [facility] TELE ASSESS & MGT SRV PROV QUAL NONPHYS HLTH CARE PRO TO EST PAT,PARENT,GUARD NOT ORIG REL ASSESS & MGT SRV PROV W/IN PREV 7 DAYS NOR LEAD ASSESS & MGT SRV/PX W/IN NXT 24 HR/SOON APT;5-10 MIN MED DIS 2008 DoD PREDNISONE, ORAL, PER 5MG 2008 DoD PHYSICAL THERAPY EVALUATION 2008 [facility] MANUAL THERAPY TECHNIQUES (EG, MOBILIZATION/ MANIPULATION, MANUAL LYMPHATIC DRAINAGE, MANUAL TRACTION), 1 OR MORE REGIONS, EACH 15 MINUTES 2007 [facility] MANUAL THERAPY TECHNIQUES (EG, MOBILIZATION/ MANIPULATION, MANUAL LYMPHATIC DRAINAGE, MANUAL TRACTION), 1 OR MORE REGIONS, EACH 15 MINUTES 2007 [facility] SCREENING PAPANICOLAOU SMEAR; OBTAINING, PREPARING AND CONVEYANCE OF CERVICAL OR VAGINAL SMEAR TO LABORATORY 2007 [facility] SURGICAL TRAYS 2007 DoD CAST SUPPLIES, SHORT ARM CAST, ADULT (11 YEARS +), PLASTER 2006 DoD OSTEOPATHIC MANIPULATIVE TREATMENT (OMT); 1-2 BODY REGIONS INVOLVED 2006 DoD PHYSICAL THERAPY EVALUATION 2006 DoD INFUSION, NORMAL SALINE SOLUTION , 1000 CC 2006 DoD STRAPPING; KNEE 2006 DoD STRAPPING; KNEE 2006 [facility] ADMINISTRATION OF PATIENT-FOCUSED HEALTH RISK ASSESSMENT INSTRUMENT (EG, HEALTH HAZARD APPRAISAL) WITH SCORING AND DOCUMENTATION, PER STANDARDIZED INSTRUMENT 2018 [facility] COUNSELING AND DISCUSSION REGARDING ADVANCE DIRECTIVES OR END OF LIFE CARE PLANNING AND DECISIONS, WITH PATIENT AND/OR SURROGATE 2018 DoD SPIROMETRY, INCLUDING GRAPHIC RECORD, TOTAL AND TIMED VITAL CAPACITY, EXPIRATORY FLOW RATE MEASUREMENT(S), WITH OR WITHOUT MAXIMAL VOLUNTARY VENTILATION 2018 DoD FITTING OF SPECTACLES, EXCEPT FOR APHAKIA; MONOFOCAL 2018 [facility] THERAPEUTIC PROCEDURE, 1 OR MORE AREAS, EACH 15 MINUTES; THERAPEUTIC EXERCISES TO DEVELOP STRENGTH AND ENDURANCE, RANGE OF MOTION AND FLEXIBILITY 2017 DoD OSTEOPATHIC MANIPULATIVE TREATMENT (OMT); 1-2 BODY REGIONS INVOLVED 2017 DoD COUNSELING AND DISCUSSION REGARDING ADVANCE DIRECTIVES OR END OF LIFE CARE PLANNING AND DECISIONS, WITH PATIENT AND/OR SURROGATE 2017 DoD CHIROPRACTIC MANIPULATIVE TREATMENT (CMT); SPINAL, 1-2 REGIONS 2017 DoD CHIROPRACTIC MANIPULATIVE TREATMENT (CMT); SPINAL, 1-2 REGIONS 2017 DoD CHIROPRACTIC MANIPULATIVE TREATMENT (CMT); SPINAL, 1-2 REGIONS 2017 DoD CHIROPRACTIC MANIPULATIVE TREATMENT (CMT); SPINAL, 1-2 REGIONS 2017 DoD CHIROPRACTIC MANIPULATIVE TREATMENT (CMT); SPINAL, 1-2 REGIONS 2017 DoD CHIROPRACTIC MANIPULATIVE TREATMENT (CMT); SPINAL, 1-2 REGIONS 2017 DoD CHIROPRACTIC MANIPULATIVE TREATMENT (CMT); SPINAL, 1-2 REGIONS 2017 [facility] APPLICATION OF A MODALITY TO 1 OR MORE AREAS; HOT OR COLD PACKS 2017 [facility] APPLICATION OF A MODALITY TO 1 OR MORE AREAS; HOT OR COLD PACKS 2017 [facility] BRONCHODILATION RESPONSIVENESS, [place] [address], PRE- AND POST-BRONCHODILATOR ADMINISTRATION 2016 [facility] INFUSION, NORMAL SALINE SOLUTION , 1000 CC 2016 [facility] HEALTH&BEHAV ASSESSMENT (EG, HEALTH-FOC CLINICAL INTERVIEW, BEHAVIORAL OBSERVATIONS, PSYCHOPHYSICOLOGICAL MONITOR, HEALTH-ORIENT QUESTIONNAIRES), EA 15 MIN [id number] W THE PATIENT; INIT ASSESSMENT 2015 [facility] POLYSOMNOGRAPHY; AGE 6 YEARS OR OLDER, SLEEP STAGING WITH 4 OR MORE ADDITIONAL PARAMETERS OF SLEEP, ATTENDED BY A TECHNOLOGIST 2015 [facility] CARDIOVASCULAR STRESS TEST USING MAXIMAL OR SUBMAXIMAL TREADMILL OR BICYCLE EXERCISE,CONTINUOUS ELECTROCARDIOGRAPHIC MONITORING,AND/OR PHARMACOLOGICAL STRESS;W SUPERVISION,INTERPRETA TION AND REPORT 2015 [facility] CARDIOVASCULAR STRESS TEST USING MAXIMAL OR SUBMAXIMAL TREADMILL OR BICYCLE EXERCISE,CONTINUOUS ELECTROCARDIOGRAPHIC MONITORING,AND/OR PHARMACOLOGICAL STRESS;W SUPERVISION,INTERPRETA TION AND REPORT 2015 [facility] EDUCATION &TRAINING, PATIENT SELF-MGT QUALIFIED, NONPHYSICIAN HEALTH REPORT PROGRAMMER USING STANDARDIZED CURRICULUM, [id number] W THE PATIENT (COULD INCL CAREGIVER/FAMILY) EA 30 MIN; 5-8 PATIENTS 2015 [facility] 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 LAYER AND EXAMINER ELECTROCARDIOGRAPHIC RECORDING UP TO 48 HOUR,CONT RHYTHM RECORDING & STORAGE;INCLUD RECORDING,SCANNING ANAL W REPORT,REVIEW &INTERPRETATION,A PHYSICIAN/OTHER QUALIFIED HEALTH REPORT PROGRAMMER 2015 [facility] EDUCATION &TRAINING, PATIENT SELF-MGT QUALIFIED, NONPHYSICIAN HEALTH REPORT PROGRAMMER USING STANDARDIZED CURRICULUM, [id number] W THE PATIENT (COULD INCL CAREGIVER/FAMILY) EA 30 MIN; 5-8 PATIENTS 2015 [facility] CARDIOVASCULAR STRESS TEST USING MAXIMAL OR SUBMAXIMAL TREADMILL OR BICYCLE EXERCISE,CONTINUOUS ELECTROCARDIOGRAPHIC MONITORING,AND/OR PHARMACOLOGICAL STRESS;W SUPERVISION,INTERPRETA TION AND REPORT 2015 [facility] 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 AND EXAMINER ELECTROCARDIOGRAPHIC RECORDING UP TO 48 HOUR,CONT RHYTHM RECORDING & STORAGE;INCLUD RECORDING,SCANNING ANAL W REPORT,REVIEW &INTERPRETATION,A PHYSICIAN/OTHER QUALIFIED HEALTH REPORT PROGRAMMER 2015 [facility] ECHOCARDIOGRAPHY,TRANS THORACIC,REAL-TIME W IMAGE DOCUMENTATION (2D),INCLUDES M-MODE RECORDING,WHEN PERFORMED,COMPLETE,WIT H SPECTRAL DOPPLER ECHOCARDIOGRAPHY,AND W COLOR FLOW DOPPLER ECHOCARDIOGRAPHY 2015 [facility] ECHOCARDIOGRAPHY,TRANS THORACIC,REAL-TIME W IMAGE DOCUMENTATION (2D),INCLUDES M-MODE RECORDING,WHEN PERFORMED,COMPLETE,WIT H SPECTRAL DOPPLER ECHOCARDIOGRAPHY,AND W COLOR FLOW DOPPLER ECHOCARDIOGRAPHY 2015 [facility] TELE ASSESS & MGT SRV PROV QUAL NONPHYS TH CARE PRO TO EST PAT,PARENT,GUARD NOT ORIG REL ASSESS & MGT SRV PROV W/IN PREV 7 DAYS NOR LEAD ASSESS & MGT SRV/PX W/IN NXT 24 HR/SOON APT;5-10 MIN MED DIS 2015 [facility] ELECTROCARDIOGRAM, ROUTINE ECG WITH AT LEAST 12 LEADS; WITH INTERPRETATION AND REPORT 2015 [facility] UNLISTED PULMONARY SERVICE OR PROCEDURE 2005 [facility] ASTHMA EDUCATION, NON-PHYSICIAN PROVIDER, PER SESSION 2013 [facility] THERAPEUTIC ACTIVITIES, DIRECT (ONE-ON-ONE) PATIENT CONTACT (USE OF DYNAMIC ACTIVITIES TO IMPROVE FUNCTIONAL PERFORMANCE), EACH 15 MINUTES 2012 [facility] BRONCHODILATION RESPONSIVENESS, [place] [address], PRE- AND POST-BRONCHODILATOR ADMINISTRATION 2012 [facility] SCREENING PAPANICOLAOU SMEAR; OBTAINING, PREPARING AND CONVEYANCE OF CERVICAL OR VAGINAL SMEAR TO LABORATORY 2011 [facility] DEMONSTRATION AND/OR EVALUATION OF PATIENT UTILIZATION OF AN AEROSOL GENERATOR, NEBULIZER, METERED DOSE INHALER OR IPPB DEVICE 2011 [facility] VITAL CAPACITY, TOTAL (SEPARATE PROCEDURE) 2011 DoD VITAL CAPACITY, TOTAL (SEPARATE PROCEDURE) 2011 DoD PERCUTANEOUS TESTS (SCRATCH, PUNCTURE, PRICK) WITH ALLERGENIC EXTRACTS, IMMEDIATE TYPE REACTION, INCLUDING TEST INTERPRETATION AND REPORT, SPECIFY NUMBER OF TESTS 2011 DoD BRONCHOSPASM PROVOCATION EVALUATION, [place] [address], WITH ADMINISTERED AGENTS (EG, ANTIGEN[S], COLD AIR, METHACHOLINE) 2011 [facility] BRONCHODILATION RESPONSIVENESS, [place] [address], PRE- AND POST-BRONCHODILATOR ADMINISTRATION 2011 [facility] INDIVIDUAL PSYCHOTHERAPY, INSIGHT ORIENTED, BEHAVIOR MODIFYING AND/OR SUPPORTIVE, IN AN OFFICE OR OUTPATIENT FACILITY, APPROXIMATELY 20 TO 30 MINUTES [id number] WITH THE PATIENT 2011 DoD CARDIOVASCULAR STRESS TEST USING MAXIMAL OR SUBMAXIMAL TREADMILL OR BICYCLE EXERCISE,CONTINUOUS ELECTROCARDIOGRAPHIC MONITORING,AND/OR PHARMACOLOGICAL STRESS;W SUPERVISION,INTERPRETA TION AND REPORT 2010 DoD EXTERNAL ELECTROCARDIOGRAPHIC RECORDING UP TO 48 HOURS BY CONTINUOUS RHYTHM RECORDING AND STORAGE; SCANNING ANALYSIS WITH REPORT 2010 DoD EXTERNAL ELECTROCARDIOGRAPHIC RECORDING UP TO 48 HOURS BY CONTINUOUS RHYTHM RECORDING AND STORAGE; SCANNING ANALYSIS WITH REPORT 2010 DoD ELECTROCARDIOGRAM, ROUTINE ECG WITH AT LEAST 12 LEADS; WITH INTERPRETATION AND REPORT 2010 DoD ELECTROCARDIOGRAM, ROUTINE ECG WITH AT LEAST 12 LEADS; WITH INTERPRETATION AND REPORT 2010 DoD BRIEF COMM TECH-BASE SERV,E.G. VIRT CHK-IN,BY PHYS/OTH QUAL HCP,RPT E&M SERV,PROV TO EST PT,NOT ORIG FRM REL E/M SERV PROV W/IN PREV 7DAY NOR LEAD TO E/M SRV/PX W/IN NEXT 24HR/SOON ERIBERTO; 5-10 MIN DISC 2020 DoD APPLICATION OF A MODALITY TO 1 OR MORE AREAS; TRACTION, MECHANICAL 2020 DoD 12-LEAD ECG PERFORMED (EM) 2020 [facility] SCREENING PAPANICOLAOU SMEAR; OBTAINING, PREPARING AND CONVEYANCE OF CERVICAL OR VAGINAL SMEAR TO LABORATORY 2020 DoD UNLISTED SPECIAL SERVICE, PROCEDURE OR REPORT 2020 DoD UNLISTED SPECIAL SERVICE, PROCEDURE OR REPORT 2020 [facility] QUALIFIED NONPHYSICIAN HEALTH REPORT PROGRAMMER ONLINE DIGITAL ASSESSMENT AND MANAGEMENT, FOR AN ESTABLISHED PATIENT, FOR UP TO 7 DAYS, CUMULATIVE TIME DURING THE 7 DAYS; 5-10 MINUTES 2019 [facility] PSYCHOLOG TEST EVAL SER,PHYS/OTH QUAL HCP,INTEGRAT,PT DATA,INT,STAND TEST RES & CLIN DATA,CLN DEC DARIAN,TX PLAN&RPT,&INTERACT FEEDBACK TO PT,FAM MEM/CAREGIV(S);EA ADD HR(LIST SEP IN ADD TO CODE,EBONY PX) 2019 [facility] BRIEF EMOTIONAL/BEHAVIORAL ASSESSMENT (EG, DEPRESSION INVENTORY, ATTENTION-DEFICIT/HYPE RACTIVITY DISORDER [ADHD] SCALE), WITH SCORING AND DOCUMENTATION, PER STANDARDIZED INSTRUMENT 2019 [facility] PSYCHIATRIC DIAGNOSTIC EVALUATION 2019 [facility] BRIEF COMM TECH-BASE SERV,E.G. VIRT CHK-IN,BY PHYS/OTH QUAL HCP,RPT E&M SERV,PROV TO EST PT,NOT ORIG FRM REL E/M SERV PROV W/IN PREV 7DAY NOR LEAD TO E/M SRV/PX W/IN NEXT 24HR/SOON ERIBERTO; 5-10 MIN DISC 2019 [facility] PEAK EXPIRATORY FLOW RATE METER, HAND HELD 2019 [facility] Bronchial Challenge With Methacholine Bronchial Challenge With Methacholine [id number] 2011 CURTIS URIAS [facility] Spirometry Post-bronchodilator Spirometry Post-bronchodilator 18443 2011 JOSE MOTA [facility] Psychotherapy Individual Approximately 30 Minutes Psychotherapy Individual Approximately 30 Minutes [id number] 2011 ANIBAL THORNE [facility] Cardiac Stre Test With Physician Supervision, Interpretation, And Report Cardiac Stress Test With Physician Supervision, Interpretation, And Report [id number] 2010 GIOVANNI BLACKMON [facility] ECG Monitoring Superimposition Scanning Analysis And Report 2010 GIOVANNI BLACKMON [facility] ECG Monitoring Superimposition Scanning Analysis And Report 2010 GIOVANNI BLACKMON [facility] ECG Monitoring Superimposition Scanning Recording Only 2010 GIOVANNI BLACKMON [facility] Electrocardiogram Electrocardiogram 88426 11/14 BALDEMAR HAMILTON [facility] Electrocardiogram Electrocardiogram 37194 06/02 ASHLEY TIWARI [facility] Patient Counseling Medical Management Five To Eight Patients Patient Counseling Medical Management Five To Eight Patients [id number] 2010 DOUGLAS ACEVEDO [facility] Non-Physician Phone Call To Pt/Provider Intermed (11-20 min) Non-Physician Phone Call To Pt/Provider Intermed (11-20 min) [id number] 2009 GIOVANNI GRIJALVA 11 [facility] Pulse Oximetry Pulse Oximetry 15556 2009 LOBO PEARSON [facility] Physician Services Special Review / Reporting Of Patient Status Physician Services Special Review / Reporting Of Patient Status 18721 2009 TONY ALDRIDGE [facility] Physical Therapy Service Re-Evaluation Physical Therapy Service Re-Evaluation 25981 2009 JOSE HEALY [facility] Physical Therapy Service Re-Evaluation Physical Therapy Service Re-Evaluation 19624 2009 JOSE HEALY [facility] Physical Therapy Service Evaluation Physical Therapy Service Evaluation 71440 2009 JOSE HEALY [facility] Non-Physician Phone Call To Patient/Provider Brief (5-10min) Non-Physician Phone Call To Patient/Provider Brief (5-10min) [id number] 2008 LOBO PEARSON Spent 5 min via phone with pt. [facility] Physical Therapy Service Evaluation Physical Therapy Service Evaluation 24793 2008 JOSE HEALY [facility] Physical Therapy Mobilization Joint Physical Therapy Mobilization Joint 41793 2007 MARVIN BRUNO [facility] Physical Therapy Service Re-Evaluation Physical Therapy Service Re-Evaluation 73923 2007 MARVIN BRUNO [facility] Physical Therapy Service Evaluation Physical Therapy Service Evaluation 44035 2007 MARVIN BRUNO [facility] Screening papanicolaou smear; obtaining, preparing and conveyance of cervical or vaginal smear to laboratory 2007 JOSH DOYLE [facility] Osteopathic Manip Treatment (OMT) 1-2 Body Regions Involved Osteopathic Manip Treatment (OMT) 1-2 Body Regions Involved 11575 2006 MARVIN BRUNO [facility] Physical Therapy Service Re-Evaluation Physical Therapy Service Re-Evaluation 65445 2006 MARVIN BRUNO [facility] Osteopathic Manip Treatment (OMT) 1-2 Body Regions Involved Osteopathic Manip Treatment (OMT) 1-2 Body Regions Involved 86169 2006 MARVIN BRUNO [facility] Physical Therapy Service Evaluation Physical Therapy Service Evaluation 00666 2006 MARVIN BRUNO [facility] Taping Knee Taping Knee 87556 2006 MARVIN BRUNO [facility] Physical Therapy Service Re-Evaluation Physical Therapy Service Re-Evaluation 12620 2006 MARVIN BRUNO [facility] Physical Therapy: ___ Se ion Segments, 15 Minutes Each Physical Therapy: ___ Session Segments, 15 Minutes Each 37318 2006 MARVIN BRUNO Physical Therapy Service Evaluation Physical Therapy Service Evaluation 57339 2006 MARVIN BRUNO Pulmonary Function Tests Pulmonary Function Tests 70307 2005 KEEGAN WINTERS Electrocardiogram Electrocardiogram 13051 03/10 KEEGAN WINTERS Internet Med Svc Qual Nonphys Healthcare Prof Up To 7 Days Estab Patient Internet Med Svc Qual Nonphys Healthcare Prof Up To 7 Days Estab Patient 16167 2018 SHAKA CRENSHAW Preventive Medicine Administration Of Health Risk Questionnaire Patient-Focused Preventive Medicine Administration Of Health Risk Questionnaire Patient-Focused 16467 2018 SHAKA CRENSHAW Counseling and discu ion regarding advance directives or end of life care planning and decisions, with patient and/or surrogate (list separately in addition to code for appropriate evaluation and management service) 2018 JAH MARTINES Patient confirms not having an advance directive and at this time is NOT interested in obtaining information. Advised patient in the future if they would like information regarding advance directive please speak with a member on the PCM team. Patient verbalized understanding and agrees with plan. [facility] Spirometry Pre-bronchodilator Spirometry Pre-bronchodilator 99540 2018 NI MARTINEZ Spectacles Services Fitting Monofocal Except For Aphakia Spectacles Services Fitting Monofocal Except For Aphakia 21522 2018 SULEMA GRAVES Determination Of Refractive State Determination Of Refractive State 82037 2018 SULEMA GRAVES Ophthalmological New Patient Start Comprehensive Care Ophthalmological New Patient Start Comprehensive Care 39951 2018 SULEMA GRAVES Physical Therapy: ___ Se ion Segments, 15 Minutes Each Physical Therapy: ___ Session Segments, 15 Minutes Each 20758 2017 GIOVANNI OCHOA Physical Therapy Service Re-Evaluation Physical Therapy Service Re-Evaluation 57626 2017 GIOVANNI OCHOA Osteopathic Manip Treatment (OMT) 1-2 Body Regions Involved Osteopathic Manip Treatment (OMT) 1-2 Body Regions Involved 52162 2017 GIOVANNI OCHOA Physical Therapy: ___ Se ion Segments, 15 Minutes Each Physical Therapy: ___ Session Segments, 15 Minutes Each 06277 2017 GIOVANNI OCHOA Physical Therapy Service Evaluation Moderate Complexity Physical Therapy Service Evaluation Moderate Complexity 39436 2017 GIOVANNI OCHOA Chiropractic Manip Treatmt (CMT) Spinal One To Two Regions Chiropractic Manip Treatmt (CMT) Spinal One To Two Regions 56831 2017 ALIYAH TONY Modalities Heat Hot Packs Modalities Heat Hot Packs 23137 2017 ALIYAH TONY Counseling and discu ion regarding advance directives or end of life care planning and decisions, with patient and/or surrogate (list separately in addition to code for appropriate evaluation and management service) 2017 SUKUMAR LUCERO Chiropractic Manip Treatmt (CMT) Spinal One To Two Regions Chiropractic Manip Treatmt (CMT) Spinal One To Two Regions 94089 2017 ALIYAH TONY Chiropractic Manip Treatmt (CMT) Spinal One To Two Regions Chiropractic Manip Treatmt (CMT) Spinal One To Two Regions 75427 2017 ALIYAH TONY Chiropractic Manip Treatmt (CMT) Spinal One To Two Regions Chiropractic Manip Treatmt (CMT) Spinal One To Two Regions 22071 2017 ALIYAH TONY Modalities Heat Hot Packs Modalities Heat Hot Packs 39831 2017 ALIYAH TONY Chiropractic Manip Treatmt (CMT) Spinal One To Two Regions Chiropractic Manip Treatmt (CMT) Spinal One To Two Regions 37675 2017 ALIYAH TONY Modalities Heat Hot Packs Modalities Heat Hot Packs 28449 2017 ALIYAH TONY Chiropractic Manip Treatmt (CMT) Spinal One To Two Regions Chiropractic Manip Treatmt (CMT) Spinal One To Two Regions 82606 2017 ALIYAH TONY Modalities Heat Hot Packs Modalities Heat Hot Packs 99606 2017 ALIYAH TONY Modalities Cryotherapy Cold Packs Modalities Cryotherapy Cold Packs 57503 2017 ALIYAH TONY Modalities Electrical Stimulation Unattended Modalities Electrical Stimulation Unattended 18120 2017 ALIYAH TONY Chiropractic Manip Treatmt (CMT) Spinal One To Two Regions Chiropractic Manip Treatmt (CMT) Spinal One To Two Regions 32935 2017 ALIYAH TONY Chiropractic Manip Treatmt (CMT) Spinal Three To Four Region Chiropractic Manip Treatmt (CMT) Spinal Three To Four Region 32285 2017 JORGE LUIS CAAL Modalities Heat Hot Packs Modalities Heat Hot Packs 73422 2017 JORGE LUIS CAAL Chiropractic Manip Treatmt (CMT) Spinal Three To Four Region Chiropractic Manip Treatmt (CMT) Spinal Three To Four Region 42207 2017 JORGE LUIS CAAL Modalities Cryotherapy Cold Packs Modalities Cryotherapy Cold Packs 77002 2017 JORGE LUIS CAAL Spirometry Post-bronchodilator Spirometry Post-bronchodilator 70331 2016 DANIELLA COTA [facility] Health And Behav A e mt Each 15 Min Initial A e ment Health And Behav Assessmt Each 15 Min Initial Assessment 84836 2015 WILI TELLEZ [facility] Psychometric Emotional / Behavioral A e ment Psychometric Emotional / Behavioral Assessment 85872 2015 WILI TELLEZ M-20 [facility] Polysomnography With 4+ Add'l Sleep Parameters Age 6 Years Or Older Polysomnography With 4+ Add'l Sleep Parameters Age 7 Years Or Older 40217 2015 DEYSI SIERRA [facility] Cardiac Stre Test With Physician Supervision, Interpretation, And Report Cardiac Stress Test With Physician Supervision, Interpretation, And Report 64581 2015 XOCHITL CASEY [facility] Cardiac Stre Test With Physician Supervision, Interpretation, And Report Cardiac Stress Test With Physician Supervision, Interpretation, And Report 42704 2015 XOCHITL CASEY [facility] Patient Counseling Medical Management Five To Eight Patients Patient Counseling Medical Management Five To Eight Patients 94406 2015 WESLEY VILLANUEVA [facility] Continuous ECG Holter Monitor 24 Hour Continuous ECG Holter Monitor 24 Hour 83094 2015 ELLA CAREY [facility] Cardiac Stre Test With Physician Supervision, Interpretation, And Report Cardiac Stress Test With Physician Supervision, Interpretation, And Report 39379 2015 ELLA CAREY [facility] Cardiac Stre Test With Physician Supervision, Interpretation, And Report Cardiac Stress Test With Physician Supervision, Interpretation, And Report 88758 2015 PREETI HARRELL Sixto [facility] Continuous ECG Holter Monitor 24 Hour Continuous ECG Holter Monitor 24 Hour 85626 2015 ELLA CAREY [facility] Echocardiogram Transthoracic 2-D With Spectral And Color Flow Doppler Echocardiogram Transthoracic 2-D With Spectral And Color Flow Doppler 74163 2015 XOCHITL CASEY [facility] Echocardiogram Transthoracic 2-D With Spectral And Color Flow Doppler Echocardiogram Transthoracic 2-D With Spectral And Color Flow Doppler 16915 2015 BLANCHE ANDREA [facility] Non-Physician Phone Call To Patient/Provider Brief (5-10min) Non-Physician Phone Call To Patient/Provider Brief (5-10min) 51325 2015 GINETTE GOMEZ [facility] ECG 12-Lead With Interpretation And Report ECG 12-Lead With Interpretation And Report 32832 2015 SORAIDA ORLANDO [facility] Spirometry Post-bronchodilator Spirometry Post-bronchodilator 24773 2015 ANA NARVAEZ [facility] Spirometry Pre-bronchodilator Spirometry Pre-bronchodilator 68863 2015 ANA NARVAEZ [facility] Psychiatric Therapy Preparation of Psychiatric Status Report Psychiatric Therapy Preparation of Psychiatric Status Report 40811 2015 ERICA SHEEHAN [facility] Psychiatric Diagnostic Evaluation Comprehensive Examination Psychiatric Diagnostic Evaluation Comprehensive Examination 64726 2015 ERICA SHEEHAN [facility] ECG 12-Lead With Interpretation And Report ECG 12-Lead With Interpretation And Report 99883 2015 ANA NARVAEZ [facility] Determination Of Refractive State Determination Of Refractive State 61255 2014 JANESSA CESAR [facility] Ophthalmological New Patient Start Comprehensive Care Ophthalmological New Patient Start Comprehensive Care 67757 2014 JANESSA CESAR [facility] Threshold Audiogram (Pure Tone) Automated Threshold Audiogram (Pure Tone) Automated 0208T 2014 BROOKE GREEN [facility] Screening Test Of Visual Acuity, Quantitative, Bilateral Screening Test Of Visual Acuity, Quantitative, Bilateral 95327 2014 HANDY RODRIGUEZ [facility] Spirometry Spirometry 92143 2014 DOUGLAS JIMENEZ Pre Spirometry [facility] ECG 12-Lead With Interpretation And Report ECG 12-Lead With Interpretation And Report 81378 2013 ANA NARVAEZ [facility] Destruction Of Flat Warts By Cryosurgery Up To 14 Lesions Destruction Of Flat Warts By Cryosurgery Up To 14 Lesions 15758 2013 VINCE DOUG Mat [facility] Spirometric Recording Patient Initiated Per 30 Days Physician Review And Interpretation Only Spirometric Recording Patient Initiated Per 30 Days Physician Review And Interpretation Only 67215 2013 DOUGLAS JIMENEZ [facility] Spirometry Spirometry 55353 2013 DOUGLAS JIMENEZ Pre Spirometry [facility] Spectacles Services Fitting Monofocal Except For Aphakia Spectacles Services Fitting Monofocal Except For Aphakia 83421 2013 LANCE TAMAYO [facility] Determination Of Refractive State Determination Of Refractive State 16932 2013 LANCE TAMAYO [facility] Ophthalmological New Patient Start Comprehensive Care Ophthalmological New Patient Start Comprehensive Care 69098 2013 LANCE TAMAYO [facility] Asthma education, non-physician provider, per se ion 2013 LISA MATA [facility] PT A e ment Kinetic Training Initial 30 Minutes PT Assessment Kinetic Training Initial 30 Minutes 76571 2012 ENRIQUE ECHEVARRIA [facility] Physical Medicine - Group Physical Therapy [facility] Physical Medicine - Group Physical Therapy Session 45589 2012 ENRIQUE ECHEVARRIA [facility] Spirometry Post-bronchodilator Spirometry Post-bronchodilator 37849 2012 GIOVANNI BLACKMON [facility] Screening papanicolaou smear; obtaining, preparing and conveyance of cervical or vaginal smear to laboratory 2011 BALDEMAR HAMILTON [facility] Spirometry Peak Expiratory Flow Spirometry Peak Expiratory Flow 93280 2011 JAVI NAYAK Created by entry in Vitals Module [facility] Spirometry Peak Expiratory Flow Spirometry Peak Expiratory Flow 71965 2011 SHERON WATERS Created by entry in Vitals Module [facility] Allergy Percutaneous tests - allergenic extracts 2011 CURTIS URIAS [facility] Spirometry Pre-bronchodilator Spirometry Pre-bronchodilator 49644 SOCO RODRIGUEZ [facility] Peak expiratory flow rate meter, hand held SOCO RODRIGUEZ [facility] Preventive Medicine Administration Of Health Risk Questionnaire Patient-Focused Preventive Medicine Administration Of Health Risk Questionnaire Patient-Focused 50058 SHAWNA LARKIN [facility] Brief communication technology-based service, e.g. virtual check-in, by a physician or other qualified health care profmonico marquez who can report evaluation and management services, provided to an established patient, not originating from a related E/M service provided within the previous 7 days nor leading to an E/M service or procedure within the next 24 hours or soonest available appointment; 5-10 minutes of medical discu ion SHAWNA LARKIN [facility] Psychiatric Diagnostic Evaluation Psychiatric Diagnostic Evaluation [address] [address] [facility] Psychometric Neuropsych Testing Battery Admin By Physician Initial 30 Minutes Psychometric Neuropsych Testing Battery Admin By Physician Initial 30 Minutes 70642 [facility] Psychometric Neuropsych Test Battery Admin By Physician Each Additional 30 Min Psychometric Neuropsych Test Battery Admin By Physician Each Additional 30 Min 57829 [facility] Psychometric Neuropsych Testing Battery Admin By Sales Marketing Initial 30 Minutes Psychometric Neuropsych Testing Battery Admin By Sales Marketing Initial 30 Minutes 64345 [facility] Psychometric Neuropsych Test Battery Admin By Sales Marketing Each Additional 30 Mins Psychometric Neuropsych Test Battery Admin By Sales Marketing Each Additional 30 Mins 17375 [facility] Psychometric Emotional / Behavioral A e ment Psychometric Emotional / Behavioral Assessment 60078 [facility] Psychological Evaluation With Interpretation and Report Initial Hour Psychological Evaluation With Interpretation and Report Initial Hour 21098 [facility] Psychological Evaluation With Interpretation and Report Each Additional Hour Psychological Evaluation With Interpretation and Report Each Additional Hour 33598 [facility] REYNALDO SHAMERYL [facility] Internet Med Svc Qual Nonphys Healthcare Prof Up To 7 Days Estab Pt 5-10 Min Internet Med Svc Qual Nonphys Healthcare Prof Up To 7 Days Estab Pt 5-10 Min 85525 GIOVANNI VARGAS [facility] Immunization Administration By Injection, One Vaccine Immunization Administration By Injection, One Vaccine 03260 GABINO CRUZ [facility] Vaccines Vaccines 40462 GABINO CRUZ [facility] Non-Physician Phone Call To Patient/Provider Brief (5-10min) Non-Physician Phone Call To Patient/Provider Brief (5-10min) 83745 MAKEDA JONES [facility] Health Maint. Unlisted Preventive Medicine Service Health Maint. Unlisted Preventive Medicine Service 46220 MAKEDA JONES [facility] Screening papanicolaou smear; obtaining, preparing and conveyance of cervical or vaginal smear to laboratory BON ROSE [facility] ECG 12-Lead ECG 12-Lead 3120F DEYSI MIRANDA [facility] Chiropractic Manip Treatmt (CMT) Spinal One To Two Regions Chiropractic Manip Treatmt (CMT) Spinal One To Two Regions 84205 MUMTAZ BUTTERFIELD [facility] Modalities Electrical Stimulation Attended Each 15 Minutes Modalities Electrical Stimulation Attended Each 15 Minutes 64428 [facility] Modalities Traction Modalities Traction 32760 [facility] [facility] SEPTOPLASTY/RHINOPLAST Y [id number] -C-72Nd [facility] 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 309C-AF -C-66 [email or web address] Social History Combined list of available smoking, tobacco, and other social history from Department of Defense and Veterans Affairs facilities. Social History Type Response Date Comment Sourc e Sex Representation Female 12/10/2020 Unknow n Organization This section is an empty social history section. [facility] Tobacco Frequent/Daily exposure to secondhand smoke in indoor/confined spaces No. Cigarette use: Former-cigarette user. Average PACKS per day: (10 cigarettes = 0.5 packs) 0.5. Total years of smoking cigarettes: 8. Other Tobacco use: Yes-current everyday other tobacco user (not cigarettes). SM reports daily vaping since 2014; SM reports Hx of cigarette smoking 0.5 PPD x 8 years; quit 2014 Ambulatory Pharmacy Sexual Orientation Ambula tory Pharmacy Gender identity Ambulator y Pharmacy Assessment and Plan Combined list of future care activities from Department of Defense and Veterans Affairs facilities (e.g., assessment and plan notes, appointments, orders, and referrals). Additional future care activities may be listed in the Plan of Care section. 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 SM present for virtual encounter. All age/gender specific CPS IAW USPSTF are up to date. ? IMR-?Red for profile. Profile-indefinite MR for Asthma. ? ? +WWQ pending waiver approval. ? This MHA/PHA is for screening purposes only, and is Not to replace a face to face appointment with PCM or other specialty care?if needed. SM was informed that?if there are any?health concerns,?it is the SM's responsibility to schedule an appointment with PCM or specialty?care for evaluation and management. ? 2.?Palpitations F/U with PCM for persistent or worsening symptoms. Seek immediate medical care/ER for persistent chest pain/pressure > 5 minutes, persistent palpitations, SOB, respiratory distress,?L arm pain/numbness, jaw pain/numbness, lightheadedness/nausea/dizzines s (if accompanied by other mentioned cardiac symptoms) are noted.? ? 3.?Asthma Continue Singulair as prescribed and?Albuterol inhaler as needed/ as prescribed, and continue F/U with Pulmonology and/or PCM for management. 4.?Nicotine dependence Nicotine?cessation highly encouraged/advised; F/U with PCM/BHOP?as needed. 5.?LBP - Low back pain F/U with PCM as needed. 6.?Pain in left leg F/U with PCM as needed. 7.?Exposure to polluted air Keep enrollment form if registered, and submit to [facility] for record keeping. F/U with PCM as needed for any medical issues related to exposure.? Shayy Walden CTR?SECURITY SHIFT SUPERVISOR-C [facility] [place] Provider Flight Medicine? 66?[employer] [facility] OSMEL GALINDO??[address] [facility] [phone] ? Extracted from:Title: RERE-ACACIA Author: AUDREY MILIAN PA Date: 06/11/23 1.?Mild intermittent asthma, uncomplicated 37 y/o F w/mild intermittent asthma that has been controlled x 12 yr, pt takes ?Albuterol INH ?90 mcg Q6??PRN, Flovent inhaler 44mg BID, Singulair 10mg daily, .? she completed?last AFPT w/out any restrictions (93.10 excellent).? ACACIA completed and submitted on this day, FEV1- 107% predicted .?See PFT report in Documents. Ordered: Spirometry ? 2.?Screening due Pt due for PHA,?? pt advised to do PHAQ, schedule Dental ?and HIV screen ordered Ordered: HIV-1/O/2 ? 3.?Occasional vaper Advised to stop nicotine vape.? pt to consider. ? Eren Milian,?APA-C [employer] Physician Baling Machine Operator/[address] GALINDO [place] ? ? Extracted from:Title: F-ACACIA Author: AUDREY MILIAN PA Date: 12/08/22 1.?Mild intermittent asthma, uncomplicated BLAYNELO completed and submitted?.? Ordered: albuterol(Albuterol (Eqv-ProAir HFA) 90 mcg/inh inhalation aerosol), 2 puff(s), Inhale, every 6 hr, # 6.7 g, 3 total refill(s), Maintenance, 2 puff(s) Inhale every 6 hr, Pharmacy: [facility] [Not filled] fluticasone nasal(Flonase 50 mcg/inh nasal spray), 50 mcg, Nostril-Both, BID, # 16 g, 5 total refill(s), Maintenance, 50 mcg Nostril-Both BID, Pharmacy: [facility] [Federal Rx: #16 last filled 12/08/22] fluticasone(Flovent HFA 44 mcg/inh aerosol inhaler), 88 mcg, Inhale, BID, # 10.6 g, 0 total refill(s), Maintenance, 88 mcg Inhale BID, Pharmacy: [facility] [Last filled 12/08/22] naproxen(naproxen 500 mg oral tablet), 1 tab(s), Oral, BID w/Meals, # 84 tab(s), 0 total refill(s), Acute, 12/09/2023, 1 tab(s) Oral BID w/Meals, Pharmacy: [facility] [Last filled 12/08/22] montelukast(Singulair 10 mg oral tablet), 1 tab(s), Oral, Daily, # 90 tab(s), 3 total refill(s), Maintenance, 1 tab(s) Oral Daily, Pharmacy: [facility] [Federal Rx: #90 last filled 12/08/22] cetirizine(ZyrTEC 10 mg oral tablet), 1 tab(s), Oral, Daily, PRN allergy symptoms, # 90 tab(s), 3 total refill(s), Maintenance, 1 tab(s) Oral Daily,PRN:allergy symptoms, Pharmacy: [facility] [Not filled] ? Eren Milian,?APA-C Aerospace Medicine Physician Baling Machine Operator/[address] [place] OSMEL GALINDO ? ? Extracted from:Title: CSSP Author: MICHELL CAAL Date: 08/24/22 Influenza due to unidentified influenza virus with other respiratory manifestations Nasal congestion ? Care Pathways Current Visit [facility] Adult Cold(Started Date: August 24, 2022)?[facility] Adult Cold v3 ?- INCLUSION criterion: Patient IS between 18 and 65 years old.?- INCLUSION criterion: Patient DOES report symptoms of a common cold (runny/stuffy nose, congestion, post-nasal drip, sneezing, cough, sore/scratchy throat, fever, ear fullness, and/or muscle aches).?- EXCLUSION criteria: Muffled voice or drooling,Wheezing, shortness of breath, or stridor,Dizziness or fainting, and History of asthma, COPD, chronic bronchitis, cystic fibrosis, another chronic lung disease?- DIFFERENTIAL criteria (current presence and the rapid onset of the following symptoms over the past 48 hours): Fatigue or general discomfort and Headache?- Provider notified of positive exclusion criteria and/or two or more differential criteria. Provider stated: Other plan of care: _?- Disposition: Transferred care to provider? Extracted from:Title: Tinnitus Referral Author: STEPH CAAL AuD Date: 08/16/22 Bilateral tinnitus Extracted from:Title: Testing Author: BON ROSE NP Date: 07/24/22 1.?Encounter for screening for infections with a predominantly sexual mode of transmission - Education about Healthcare. - Use condoms during intercourse. - Informed of lab result time frame and notification of abnormal results only.? ? Ordered: GIOVANNA Prep Wet Prep ? 2.?Contact with and (suspected) exposure to infections with a predominantly sexual mode of transmission - Shower instead of tub baths. - Plain white dove, no scented soaps. - Void after intercourse. - Wipe from front to back after voiding. - Wear cotton lined underwear. - Avoid tight fitting jeans/pants.? - Shower after working out, using sauna, swimming, etc. - Change washcloths and drying towels daily. - Probiotic daily.? - Eat yogurt with live cultures daily. ? - Drink plenty of water daily. - ACOG Handout for vaginitis reviewed in detail and given to patient. ? Ordered: metroNIDAZOLE(metroNIDAZOLE 500 mg oral tablet), 1 tab(s), Oral, BID, do not drink alcohol, X 7 days, # 14 tab(s), 0 total refill(s), Acute, 07/31/2022, 1 tab(s) Oral BID,x7 days,Instr:do not drink alcohol, Pharmacy: [facility] [Last filled 07/24/22] ? Total time spent caring for this patient today was?20 minutes with greater than 50% of time spent on counseling/education..? This includes time spent before the visit reviewing the chart, time spent during the visit, time spent after the visit on documentation, and time spent on care coordination. 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 --MHA/PHA updated in [facility]. -- ? ?Priority responses addressed- Member reports she had chest pain and irregular heartbeat in the past, the issue has been addressed by cardiology. Denies any immediate needs. No referral indicated. --IMR reviewed --Profile- MR --[id number] min spent on encounter ? 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 4.?Tobacco use Member reports tobacco use- not interested in quitting at this time. ? DALIA To-C Nurse Practitioner, ctr [facility], [employer], [place] ? Extracted from:Title: ARILO asthma Author: SOCO TURCIOS MD Date: 05/29/22 1.?Mild intermittent asthma, uncomplicated Chronic, diagnosed in 2011 on positive MCT reportedly.? Appears to have a large allergy component as well.? Has been stable on meds since that time and is currently doing well.? Denies any ER visits, hospitalizations, UCC, or clinic visits in the past year for this condition.? ACT = 24 and PFT is normal today.? ? - Current med regimen:? Flovent 44mcg 2 puffs BID + Singulair 10mg daily + Albuterol PRN.? Refills given. - Continue Zyrtec, flonase, sinus rinses for allergies. - PFT performed today and is normal. - F/u in one year at annual exam/ACACIA.? ? Pt on C2 code.? She is WWQ w/ a waiver. ? ? Total time spent caring for this patient today was?24 minutes.? This includes time spent before the visit reviewing the chart, time spent during the visit, time spent after the visit on documentation, and time spent on care coordination.? Orders: albuterol(Albuterol (Eqv-Proventil HFA) 90 mcg/inh inhalation aerosol), 2 puff(s), Inhale, every 4 hr, PRN wheezing, # 18 g, 3 total refill(s), Maintenance, 2 puff(s) Inhale every 4 hr,PRN:wheezing, Pharmacy: [facility] [Federal Rx: #25.5 last filled 05/29/22] cetirizine(cetirizine 10 mg oral tablet), 1 tab(s), Oral, Daily, # 90 tab(s), 3 total refill(s), Maintenance, 1 tab(s) Oral Daily, Pharmacy: [facility] [Not filled] fluticasone nasal(Flonase 50 mcg/inh nasal spray), 50 mcg, Nostril-Both, BID, # 16 g, 3 total refill(s), Maintenance, 50 mcg Nostril-Both BID, Pharmacy: [facility] [Federal Rx: #16 last filled 05/29/22] montelukast(montelukast 10 mg oral tablet), 1 tab(s), Oral, Daily, # 90 tab(s), 3 total refill(s), Maintenance, 1 tab(s) Oral Daily, Pharmacy: [facility] [Not filled] sodium chloride nasal(NeilMed Sinus Rinse Kit nasal powder for reconstitution), See Instructions, Dissolve the contents of one packet in 8 oz of purified/filtered water and instill into sinuses as directed, # 50 EA, 0 total refill(s), Maintenance, Dissolve the contents of one packet in 8 oz of purified/filtered water and instill... 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 Patient states this is to streamline the process. ? informed patient that records review would be done with evaluation of PFT's and prior ER visits due to asthma. Paperwork will be completed in approx 7 days. Patient will follow up with PCM next week. ? Plan ahead: - reviewed the above with the patient in detail - RTC precautions given - ER precautions given - F/U PRN - PVUA- Patient s goals met ? Orders: Hepatitis A/B/C Virus Pnl EPI [id number] HIV-1/O/2 EPI [id number] Extracted from:Title: Office Clinic Note- Flu like symptoms Author: KIMBERLY CORTEZ NP Date: 02/14/22 1.?Flu-like symptoms 36 yrs old patient? with Hx of Asthma presented to the clinic with flu-like symptoms; muscle aches, runny nose, sore-throat, cough, chills and headaches X 1day, pt also added she still vapes nicotine ? ? -mild pharyngeal erythema with no exudates noted ? ? -Stat ibuprofen -?continue acetaminophen - stat guaifenesin - stat lozenges? -The patient was instructed on the importance of hand washing, covering coughs, staying hydrated, and getting plenty of rest. patient also instructed on the use of lozenges, tea with honey, and saltwater gargles. Also that Condition self-limiting and she should feel better in 5-7 days -RTC if sxs worsen or fail to improve. -Educated patient on smoking cessation?[vape) - As of this visit No MR,, pt meets MDS ? Ordered: dextromethorphan-benzocaine(Cep acol Sore Throat and Cough 7.5 mg-5 mg oral lozenge), 1 lozenge(s), Oral, every 4 hr, PRN cough, # 16 EA, 0 total refill(s), Acute, 1 lozenge(s) Oral every 4 hr,PRN:as needed for cough, Pharmacy: [facility] [Not filled] guaiFENesin(guaiFENesin 600 mg oral tablet, extended release), 1 tab(s), Oral, every 12 hr, # 20 tab(s), 0 total refill(s), Acute, 03/17/2022, 1 tab(s) Oral every 12 hr, Pharmacy: [facility] [Not filled] ibuprofen(ibuprofen 400 mg oral tablet), 1 tab(s), Oral, every 4 hr, PRN pain, # 60 tab(s), 0 total refill(s), Acute, 03/17/2022, 1 tab(s) Oral every 4 hr,PRN:as needed for pain, Pharmacy: [facility] [Not filled] oseltamivir(Tamiflu 75 mg oral capsule), 1 cap(s), Oral, BID, X 5 days, # 10 cap(s), 0 total refill(s), Acute, 02/19/2022, 1 cap(s) Oral BID,x5 days, Pharmacy: [facility] [Not filled] Miscellaneous Manual LC ? Orders: Respiratory Pathogen Panel EPI [id number] Extracted from:Title: Office Clinic Note Author: WILI ESPINOZA Date: 01/11/22 1.?Exacerbation of asthma will give prednsione, albuterol Q 4 hrs for the next 48 hrs ? 2.?Cough refill mucinex as this has been helpful, likely post viral bronchospasm from above, CXR today as has been present for 2 weeks Ordered: XR Chest 2 Views ? Orders: guaiFENesin(Mucinex 600 mg oral tablet, extended release), 1 tab(s), Oral, every 12 hr, # 20 tab(s), 0 total refill(s), Maintenance, 1 tab(s) Oral every 12 hr, Pharmacy: [facility] [Not filled] predniSONE(predniSONE 50 mg oral tablet), 1 tab(s), Oral, Daily, X 7 days, # 7 tab(s), 0 total refill(s), Acute, 1 tab(s) Oral Daily,x7 days, Pharmacy: [facility] [Not filled] Extracted from:Title: Cough and pharyngitis Author: LEONARDO IVAN NP Date: 01/03/22 1.?Cough Ordered: dextromethorphan-guaifenesin(Mu cinex DM 600 mg-30 mg oral tablet, extended release), 1 tab(s), Oral, every 12 hr, # 28 tab(s), 0 total refill(s), Acute, 01/17/2022, 1 tab(s) Oral every 12 hr, Pharmacy: [facility] [Not filled] ? 2.?Pharyngitis Ordered: acetaminophen(acetaminophen 500 mg oral tablet), 1 tab(s), Oral, every 4 hr, PRN pain or fever, # 100 tab(s), 1 total refill(s), Acute, 01/03/2023, 1 tab(s) Oral every 4 hr,PRN:as needed for pain or fever, Pharmacy: [facility] [Not filled] ? Extracted from:Title: Follow-up for seasonal allergies, asthma, UTI Author: LEONARDO IVAN NP Date: 10/26/21 1.?Allergic rhinitis No medication changes or renewals indicated Medications reconciled 2.?Asthma No medication changes or renewals indicated Medications reconciled 3.?Urinary tract infection Medication changes or renewals indicated Medications reconciled Follow-up with women's health ? Extracted from:Title: Ambulatory Patient Education Author: JF JUAREZ NP Date: 10/19/21 Patient Education Materials Follows: Dysuria Dysuria is pain or discomfort during urination. The pain or discomfort may be felt in the part of the body that drains urine from the bladder (urethra) or in the surrounding tissue of the genitals. The pain may also be felt in the groin area, lower abdomen, or lower back. You may have to urinate frequently or have the sudden feeling that you have to urinate (urgency). Dysuria can affect anyone, but it is more common in females. Dysuria can be caused by many different things, including: Urinary tract infection. Kidney stones or bladder stones. Certain STIs (sexually transmitted infections), such as chlamydia. Dehydration. Inflammation of the tissues of the vagina. Use of certain medicines. Use of certain soaps or scented products that cause irritation. Follow these instructions at home: Medicines Take yljs-oos-yrxusoy and prescription medicines only as told by your health care provider. If you were prescribed an antibiotic medicine, take it as told by your health care provider. Do not stop taking the antibiotic even if you start to feel better. Eating and drinking Drink enough fluid to keep your urine pale yellow. Avoid caffeinated beverages, tea, and alcohol. These beverages can irritate the bladder and make dysuria worse. In males, alcohol may irritate the prostate. General instructions Watch your condition for any changes. Urinate often. Avoid holding urine for long periods of time. If you are female, you should wipe from front to back after urinating or having a bowel movement. Use each piece of toilet paper only once. Empty your bladder after sex. Keep all follow-up visits. This is important. If you had any tests done to find the cause of dysuria, it is up to you to get your test results. Ask your health care provider, or the department that is doing the test, when your results will be ready. Contact a health care provider if: You have a fever. You develop pain in your back or sides. You have nausea or vomiting. You have blood in your urine. You are not urinating as often as you usually do. Get help right away if: Your pain is severe and not relieved with medicines. You cannot eat or drink without vomiting. You are confused. You have a rapid heartbeat while resting. You have shaking or chills. You feel extremely weak. Summary Dysuria is pain or discomfort while urinating. Many different conditions can lead to dysuria. If you have dysuria, you may have to urinate frequently or have the sudden feeling that you have to urinate (urgency). Watch your condition for any changes. Keep all follow-up visits. Make sure that you urinate often and drink enough fluid to keep your urine pale yellow. This information is not intended to replace advice given to you by your health care provider. Make sure you discuss any questions you have with your health care provider. Document Revised: 09/17/2020 Document Reviewed: 09/17/2020 [employer] Patient Education ? 2021 [employer] 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 SM present for virtual encounter. All age/gender specific CPS IAW USPSTF are up to date. ? IMR-?Red for profile. Profile-indefinite MR for Asthma. ? ? +WWQ pending waiver approval. ? This MHA/PHA is for screening purposes only, and is Not to replace a face to face appointment with PCM or other specialty care?if needed. SM was informed that?if there are any?health concerns,?it is the SM's responsibility to schedule an appointment with PCM or specialty?care for evaluation and management. ? 2.?Palpitations F/U with PCM for persistent or worsening symptoms. Seek immediate medical care/ER for persistent chest pain/pressure > 5 minutes, persistent palpitations, SOB, respiratory distress,?L arm pain/numbness, jaw pain/numbness, lightheadedness/nausea/dizzines s (if accompanied by other mentioned cardiac symptoms) are noted.? ? 3.?Asthma Continue Singulair as prescribed and?Albuterol inhaler as needed/ as prescribed, and continue F/U with Pulmonology and/or PCM for management. 4.?Nicotine dependence Nicotine?cessation highly encouraged/advised; F/U with PCM/BHOP?as needed. 5.?LBP - Low back pain F/U with PCM as needed. 6.?Pain in left leg F/U with PCM as needed. 7.?Exposure to polluted air Keep enrollment form if registered, and submit to [facility] for record keeping. F/U with PCM as needed for any medical issues related to exposure.? Shayy Walden. CTR?SECURITY SHIFT SUPERVISOR-C [employer] Provider Flight Medicine? [address] [place], [place]??[address] [address] [phone] ? Extracted from:Title: SHEN Author: AUDREY MILIAN PA Date: 06/11/23 1.?Mild intermittent asthma, uncomplicated 37 y/o F w/mild intermittent asthma that has been controlled x 12 yr, pt takes ?Albuterol INH ?90 mcg Q6??PRN, Flovent inhaler 44mg BID, Singulair 10mg daily, .? she completed?last AFPT w/out any restrictions (93.10 excellent).? ARILO completed and submitted on this day, FEV1- 107% predicted .?See PFT report in Documents. Ordered: Spirometry ? 2.?Screening due Pt due for PHA,?? pt advised to do PHAQ, schedule Dental ?and HIV screen ordered Ordered: HIV-1/O/2 ? 3.?Occasional vaper Advised to stop nicotine vape.? pt to consider. ? Eren Milian,?APA-C Aerospace Medicine Physician Baling Machine Operator/NAPKIN MACHINE OPERATOR [facility], [place] ? ? Extracted from:Title: SHEN Author: AUDREY MILIAN PA Date: 12/08/22 1.?Mild intermittent asthma, uncomplicated ARILO completed and submitted?.? Ordered: albuterol(Albuterol (Eqv-ProAir HFA) 90 mcg/inh inhalation aerosol), 2 puff(s), Inhale, every 6 hr, # 6.7 g, 3 total refill(s), Maintenance, 2 puff(s) Inhale every 6 hr, Pharmacy: [facility] [Not filled] fluticasone nasal(Flonase 50 mcg/inh nasal spray), 50 mcg, Nostril-Both, BID, # 16 g, 5 total refill(s), Maintenance, 50 mcg Nostril-Both BID, Pharmacy: [facility] [Federal Rx: #16 last filled 12/08/22] fluticasone(Flovent HFA 44 mcg/inh aerosol inhaler), 88 mcg, Inhale, BID, # 10.6 g, 0 total refill(s), Maintenance, 88 mcg Inhale BID, Pharmacy: [facility] [Last filled 12/08/22] naproxen(naproxen 500 mg oral tablet), 1 tab(s), Oral, BID w/Meals, # 84 tab(s), 0 total refill(s), Acute, 12/09/2023, 1 tab(s) Oral BID w/Meals, Pharmacy: [facility] [Last filled 12/08/22] montelukast(Singulair 10 mg oral tablet), 1 tab(s), Oral, Daily, # 90 tab(s), 3 total refill(s), Maintenance, 1 tab(s) Oral Daily, Pharmacy: [facility] [Federal Rx: #90 last filled 12/08/22] cetirizine(ZyrTEC 10 mg oral tablet), 1 tab(s), Oral, Daily, PRN allergy symptoms, # 90 tab(s), 3 total refill(s), Maintenance, 1 tab(s) Oral Daily,PRN:allergy symptoms, Pharmacy: [facility] [Not filled] ? Eren Milian,?APA-C Aerospace Medicine Physician Baling Machine Operator/[address] [place] ? ? Extracted from:Title: [facility] Author: MICHELL CAAL Date: 08/24/22 Influenza due to unidentified influenza virus with other respiratory manifestations Nasal congestion ? Care Pathways Current Visit [facility] Adult Cold(Started Date: August 24, 2022)?[facility] Adult Cold v3 ?- INCLUSION criterion: Patient IS between 18 and 65 years old.?- INCLUSION criterion: Patient DOES report symptoms of a common cold (runny/stuffy nose, congestion, post-nasal drip, sneezing, cough, sore/scratchy throat, fever, ear fullness, and/or muscle aches).?- EXCLUSION criteria: Muffled voice or drooling,Wheezing, shortness of breath, or stridor,Dizziness or fainting, and History of asthma, COPD, chronic bronchitis, cystic fibrosis, another chronic lung disease?- DIFFERENTIAL criteria (current presence and the rapid onset of the following symptoms over the past 48 hours): Fatigue or general discomfort and Headache?- Provider notified of positive exclusion criteria and/or two or more differential criteria. Provider stated: Other plan of care: _?- Disposition: Transferred care to provider? Extracted from:Title: Tinnitus Referral Author: STEPH CAAL, Rafi Date: 08/16/22 Bilateral tinnitus Extracted from:Title: Testing Author: BON ROSE NP Date: 07/24/22 1.?Encounter for screening for infections with a predominantly sexual mode of transmission - Education about Healthcare. - Use condoms during intercourse. - Informed of lab result time frame and notification of abnormal results only.? ? Ordered: GIOVANNA Prep Wet Prep ? 2.?Contact with and (suspected) exposure to infections with a predominantly sexual mode of transmission - Shower instead of tub baths. - Plain white dove, no scented soaps. - Void after intercourse. - Wipe from front to back after voiding. - Wear cotton lined underwear. - Avoid tight fitting jeans/pants.? - Shower after working out, using sauna, swimming, etc. - Change washcloths and drying towels daily. - Probiotic daily.? - Eat yogurt with live cultures daily. ? - Drink plenty of water daily. - ACOG Handout for vaginitis reviewed in detail and given to patient. ? Ordered: metroNIDAZOLE(metroNIDAZOLE 500 mg oral tablet), 1 tab(s), Oral, BID, do not drink alcohol, X 7 days, # 14 tab(s), 0 total refill(s), Acute, 07/31/2022, 1 tab(s) Oral BID,x7 days,Instr:do not drink alcohol, Pharmacy: [facility] [Last filled 07/24/22] ? Total time spent caring for this patient today was?20 minutes with greater than 50% of time spent on counseling/education..? This includes time spent before the visit reviewing the chart, time spent during the visit, time spent after the visit on documentation, and time spent on care coordination. 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 --MHA/PHA updated in [facility]. -- ? ?Priority responses addressed- Member reports she had chest pain and irregular heartbeat in the past, the issue has been addressed by cardiology. Denies any immediate needs. No referral indicated. --IMR reviewed --Profile- MR --[id number] min spent on encounter ? 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 4.?Tobacco use Member reports tobacco use- not interested in quitting at this time. ? Jayleen Lancaster, DALIA-C Nurse Practitioner, [facility] [employer] [employer], [employer], [place] ? Extracted from:Title: ARILO asthma Author: SOCO TURCIOS MD Date: 05/29/22 1.?Mild intermittent asthma, uncomplicated Chronic, diagnosed in 2011 on positive MCT reportedly.? Appears to have a large allergy component as well.? Has been stable on meds since that time and is currently doing well.? Denies any ER visits, hospitalizations, UCC, or clinic visits in the past year for this condition.? ACT = 24 and PFT is normal today.? ? - Current med regimen:? Flovent 44mcg 2 puffs BID + Singulair 10mg daily + Albuterol PRN.? Refills given. - Continue Zyrtec, flonase, sinus rinses for allergies. - PFT performed today and is normal. - F/u in one year at annual exam/ARILO.? ? Pt on C2 code.? She is WWQ w/ a waiver. ? ? Total time spent caring for this patient today was?24 minutes.? This includes time spent before the visit reviewing the chart, time spent during the visit, time spent after the visit on documentation, and time spent on care coordination.? Orders: albuterol(Albuterol (Eqv-Proventil HFA) 90 mcg/inh inhalation aerosol), 2 puff(s), Inhale, every 4 hr, PRN wheezing, # 18 g, 3 total refill(s), Maintenance, 2 puff(s) Inhale every 4 hr,PRN:wheezing, Pharmacy: [facility] [Federal Rx: #25.5 last filled 05/29/22] cetirizine(cetirizine 10 mg oral tablet), 1 tab(s), Oral, Daily, # 90 tab(s), 3 total refill(s), Maintenance, 1 tab(s) Oral Daily, Pharmacy: [facility] [Not filled] fluticasone nasal(Flonase 50 mcg/inh nasal spray), 50 mcg, Nostril-Both, BID, # 16 g, 3 total refill(s), Maintenance, 50 mcg Nostril-Both BID, Pharmacy: [facility] [Federal Rx: #16 last filled 05/29/22] montelukast(montelukast 10 mg oral tablet), 1 tab(s), Oral, Daily, # 90 tab(s), 3 total refill(s), Maintenance, 1 tab(s) Oral Daily, Pharmacy: [facility] [Not filled] sodium chloride nasal(NeilMed Sinus Rinse Kit nasal powder for reconstitution), See Instructions, Dissolve the contents of one packet in 8 oz of purified/filtered water and instill into sinuses as directed, # 50 EA, 0 total refill(s), Maintenance, Dissolve the contents of one packet in 8 oz of purified/filtered water and instill... 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 Patient states this is to streamline the process. ? informed patient that records review would be done with evaluation of PFT's and prior ER visits due to asthma. Paperwork will be completed in approx 7 days. Patient will follow up with PCM next week. ? Plan ahead: - reviewed the above with the patient in detail - RTC precautions given - ER precautions given - F/U PRN - PVUA- Patient s goals met ? Orders: Hepatitis A/B/C Virus Pnl EPI P5195 HIV-1/O/2 EPI [id number] Extracted from:Title: Office Clinic Note- Flu like symptoms Author: KIMBERLY CORTEZ NP Date: 02/14/22 1.?Flu-like symptoms 36 yrs old patient? with Hx of Asthma presented to the clinic with flu-like symptoms; muscle aches, runny nose, sore-throat, cough, chills and headaches X 1day, pt also added she still vapes nicotine ? ? -mild pharyngeal erythema with no exudates noted ? ? -Stat ibuprofen -?continue acetaminophen - stat guaifenesin - stat lozenges? -The patient was instructed on the importance of hand washing, covering coughs, staying hydrated, and getting plenty of rest. patient also instructed on the use of lozenges, tea with honey, and saltwater gargles. Also that Condition self-limiting and she should feel better in 5-7 days -RTC if sxs worsen or fail to improve. -Educated patient on smoking cessation?[vape) - As of this visit No ,, pt meets MDS ? Ordered: dextromethorphan-benzocaine(Cep acol Sore Throat and Cough 7.5 mg-5 mg oral lozenge), 1 lozenge(s), Oral, every 4 hr, PRN cough, # 16 EA, 0 total refill(s), Acute, 1 lozenge(s) Oral every 4 hr,PRN:as needed for cough, Pharmacy: [facility] [Not filled] guaiFENesin(guaiFENesin 600 mg oral tablet, extended release), 1 tab(s), Oral, every 12 hr, # 20 tab(s), 0 total refill(s), Acute, 03/17/2022, 1 tab(s) Oral every 12 hr, Pharmacy: [facility] [Not filled] ibuprofen(ibuprofen 400 mg oral tablet), 1 tab(s), Oral, every 4 hr, PRN pain, # 60 tab(s), 0 total refill(s), Acute, 03/17/2022, 1 tab(s) Oral every 4 hr,PRN:as needed for pain, Pharmacy: [facility] [Not filled] oseltamivir(Tamiflu 75 mg oral capsule), 1 cap(s), Oral, BID, X 5 days, # 10 cap(s), 0 total refill(s), Acute, 02/19/2022, 1 cap(s) Oral BID,x5 days, Pharmacy: [facility] [Not filled] Miscellaneous Manual LC ? Orders: Respiratory Pathogen Panel EPI [id number] Extracted from:Title: Office Clinic Note Author: WILI ESPINOZA Date: 01/11/22 1.?Exacerbation of asthma will give prednsione, albuterol Q 4 hrs for the next 48 hrs ? 2.?Cough refill mucinex as this has been helpful, likely post viral bronchospasm from above, CXR today as has been present for 2 weeks Ordered: XR Chest 2 Views ? Orders: guaiFENesin(Mucinex 600 mg oral tablet, extended release), 1 tab(s), Oral, every 12 hr, # 20 tab(s), 0 total refill(s), Maintenance, 1 tab(s) Oral every 12 hr, Pharmacy: [facility] [Not filled] predniSONE(predniSONE 50 mg oral tablet), 1 tab(s), Oral, Daily, X 7 days, # 7 tab(s), 0 total refill(s), Acute, 1 tab(s) Oral Daily,x7 days, Pharmacy: [facility] [Not filled] Extracted from:Title: Cough and pharyngitis Author: LEONARDO IVAN NP Date: 01/03/22 1.?Cough Ordered: dextromethorphan-guaifenesin(Mu cinex DM 600 mg-30 mg oral tablet, extended release), 1 tab(s), Oral, every 12 hr, # 28 tab(s), 0 total refill(s), Acute, 01/17/2022, 1 tab(s) Oral every 12 hr, Pharmacy: [facility] [Not filled] ? 2.?Pharyngitis Ordered: acetaminophen(acetaminophen 500 mg oral tablet), 1 tab(s), Oral, every 4 hr, PRN pain or fever, # 100 tab(s), 1 total refill(s), Acute, 01/03/2023, 1 tab(s) Oral every 4 hr,PRN:as needed for pain or fever, Pharmacy: [facility] [Not filled] ? Extracted from:Title: Follow-up for seasonal allergies, asthma, UTI Author: LEONARDO IVAN NP Date: 10/26/21 1.?Allergic rhinitis No medication changes or renewals indicated Medications reconciled 2.?Asthma No medication changes or renewals indicated Medications reconciled 3.?Urinary tract infection Medication changes or renewals indicated Medications reconciled Follow-up with women's health ? Extracted from:Title: Ambulatory Patient Education Author: JF JUAREZ NP Date: 10/19/21 Patient Education Materials Follows: Dysuria Dysuria is pain or discomfort during urination. The pain or discomfort may be felt in the part of the body that drains urine from the bladder (urethra) or in the surrounding tissue of the genitals. The pain may also be felt in the groin area, lower abdomen, or lower back. You may have to urinate frequently or have the sudden feeling that you have to urinate (urgency). Dysuria can affect anyone, but it is more common in females. Dysuria can be caused by many different things, including: Urinary tract infection. Kidney stones or bladder stones. Certain STIs (sexually transmitted infections), such as chlamydia. Dehydration. Inflammation of the tissues of the vagina. Use of certain medicines. Use of certain soaps or scented products that cause irritation. Follow these instructions at home: Medicines Take ginw-xur-piyudmj and prescription medicines only as told by your health care provider. If you were prescribed an antibiotic medicine, take it as told by your health care provider. Do not stop taking the antibiotic even if you start to feel better. Eating and drinking Drink enough fluid to keep your urine pale yellow. Avoid caffeinated beverages, tea, and alcohol. These beverages can irritate the bladder and make dysuria worse. In males, alcohol may irritate the prostate. General instructions Watch your condition for any changes. Urinate often. Avoid holding urine for long periods of time. If you are female, you should wipe from front to back after urinating or having a bowel movement. Use each piece of toilet paper only once. Empty your bladder after sex. Keep all follow-up visits. This is important. If you had any tests done to find the cause of dysuria, it is up to you to get your test results. Ask your health care provider, or the department that is doing the test, when your results will be ready. Contact a health care provider if: You have a fever. You develop pain in your back or sides. You have nausea or vomiting. You have blood in your urine. You are not urinating as often as you usually do. Get help right away if: Your pain is severe and not relieved with medicines. You cannot eat or drink without vomiting. You are confused. You have a rapid heartbeat while resting. You have shaking or chills. You feel extremely weak. Summary Dysuria is pain or discomfort while urinating. Many different conditions can lead to dysuria. If you have dysuria, you may have to urinate frequently or have the sudden feeling that you have to urinate (urgency). Watch your condition for any changes. Keep all follow-up visits. Make sure that you urinate often and drink enough fluid to keep your urine pale yellow. This information is not intended to replace advice given to you by your health care provider. Make sure you discuss any questions you have with your health care provider. Document Revised: 09/17/2020 Document Reviewed: 09/17/2020 [employer] Patient Education ? 2021 [employer]. 04/25/2024 [id number] [facility] Functional Status Combined list of recent functional and cognitive assessments recorded at [employer] [facility] Functional [place] Measurement (FIM) Scale: 1 = Total Assistance (Subject = 0% +), 2 = Maximal Assistance (Subject = 25% +), 3 = Moderate Assistance (Subject = 50% +), 4 = Minimal Assistance (Subject = 75% +), 5 = Supervision, 6 = Modified [place] (Device), 7 = Complete [place] (Timely, Safely). Assessment Date/Time Source Assessment Type Assessment Skill Assessment Score Assessment Details No data available for this section
== END 2024-04-24 16:58 | disposition home or self-care (01) ==
PROVIDERS: PCP Family Medicine; Visit Provider Nurse Practitioner Family
DX: Z00.00 Encounter for general adult medical examination without abnormal findings (principal); J45.20 Mild intermittent asthma, uncomplicated; M79.652 Pain in left thigh; M54.42 Lumbago with sciatica, left side; G89.29 Other chronic pain; R00.2 Palpitations; Z72.0 Tobacco use

== ENCOUNTER → 2024-04-24 15:37 | Outpatient (BNVA) | payer OTHER, SELFPAY | PROVIDERS: PCP Family Medicine; Visit Provider Nurse Practitioner Family | DX: Z00.00 Encounter for general adult medical examination without abnormal findings (principal); J45.20 Mild intermittent asthma, uncomplicated; M79.652 Pain in left thigh; M54.42 Lumbago with sciatica, left side; G89.29 Other chronic pain; Z72.0 Tobacco use | CPT/HCPCS: 96127; 96160 ==

== ENCOUNTER 2024-05-15 10:00 | Outpatient (RCR) | payer OTHER, SELFPAY ==
--- NOTE | 2024-04-04 10:07 | MHC.PT.EP ---
[facility] [place] Office [place] Office [place] Office [address] Sofi Diez [address] [phone] F: [phone] F: [phone] F: [phone] F: [phone] Physical Therapy Plan of Care Date of Evaluation: 04/04/24 Date of Surgery: Diagnosis: low back pain Assessment: Patient is a 38 year old R handed female who presents with s/s consistent with low back pain. She did have a disc injury in 2016 with noted disc pathology. She was offered surgery and declined. 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 Patient past medical history includes meniscal repair, asthma, and back injury. Current impairments include pain, posture, flexibility, ROM, strength, activity tolerance and functional mobility. Functional limitations include decreased ability to walk, stand, drive longer durations, run and be physically active. Patient is motivated with good rehab potential. Skilled PT will address impairments and functional limitations in order to achieve goals. Frequency and Duration: The patient will be seen 2x/week for 5 weeks Short Term Goals: I with HEP - 2 weeks 90/90 lacking 30 or less on L - 3 weeks L lumbar rotation 75% and pain free - 3 weeks L hip ER 40 and pain free - 3 wees Prison Goals: Max pain with driving/standing/sitting > 2 hours 03/31 - 5 weeks Oswestry 12% or better - 5 weeks Symmetrical foot placement/stance phase during gait - 5 weeks Able to run 1 mile pain free - 5 weeks Treatment Plan: Modalities to reduce pain, spasms and effusion. Manual therapy to restore motion and function. Therapeutic exercise to improve strength and flexibility. Neuromuscular re-education for posture and balance. Therapeutic activities to return to functional activities of daily living. Electronically signed by: Chase Estrada, PT Please sign and return to therapist. Thank you for your referral.
--- NOTE | 2024-09-09 11:15 | MHC.PT.DC ---
[facility] [place] Office [place] Office [place] Office [address] Sofi Diez [address] [phone] F: [phone] F: [phone] F: [phone] F: [phone] Physical Therapy Discharge Report Diagnosis: low back pain Date of Surgery: Date of Evaluation: 04/04/24 Date of Discharge: 06/11/24 Treatments to Date: 5 Cancellations to Date: No Shows to Date: Discharge Status: Improved Function Independent with HEP Discharge Summary: 05/15/24: I with HEP. 90/90 < 30 b/l. AROM lumbar rotation 75%+ and pain free. Max pain with daily activities 2/10 over last week. Improved symmetry with ambulation. Pt is motivated to continue exclusively with HEP and will d/c to HEP At this time. 05/02/24: pt progressing well with skilled PT. no adverse reactions. continue to progress as tolerated. good carryover. update HEP NV. 04/25/24: pn experienced with bridging today. finished with CP. encouraged in HEP performance. 04/09/24: pt progressed with flex/hip and core strength. edu on mechanics and core stab. continue to progress as tolerated. Patient is a 38 year old R handed female who presents with s/s consistent with low back pain. She did have a disc injury in 2016 with noted disc pathology. She was offered surgery and declined. 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 Patient past medical history includes meniscal repair, asthma, and back injury. Current impairments include pain, posture, flexibility, ROM, strength, activity tolerance and functional mobility. Functional limitations include decreased ability to walk, stand, drive longer durations, run and be physically active. Patient is motivated with good rehab potential. Skilled PT will address impairments and functional limitations in order to achieve goals. Electronically signed by: Chase Estrada, PT Please sign and return to therapist. Thank you for your referral.
== END 2024-09-09 11:16 | disposition home or self-care (01) ==
LOC: HO.PTCHIC 10:00
PROVIDERS: PCP Family Medicine; Visit Provider Family Medicine
DX: M54.50 Low back pain, unspecified (principal); M79.652 Pain in left thigh
CPT/HCPCS: 97110; 97112; 97162

== ENCOUNTER 2024-06-03 09:47 | Outpatient (REF) | payer OTHER, SELFPAY ==
--- NOTE | 2024-06-03 09:49 | PFT_ITS ---
Indication: Asthma Spirometry [FEV1 to FVC 83%; FEV1 3.92 L; FVC 4.75 L. No significant response to bronchodilators noted.] Lung Volumes [Total lung capacity 106% predicted] Diffusion Capacity [DLCO 127% predicted] Comparisons [none] Interpretation [No obstructive nor restrictive ventilatory defects identified. No significant response to bronchodilators noted. Lung volumes are within normal limits. The patient's diffusing capacity is significantly elevated. Need to consider exogenous exposure to carbon monoxide. If asthma is in the differential a methacholine challenge may be helpful for the assessment of hyperreactive airways. Clinical correlation warranted.] MTDD
[2024-06-03 10:29] VITALS: PULSE 80; O2SAT 100
--- OUTSIDE RECORDS SUMMARY | 2024-06-03 11:14 | XMS_ITS | Continuity of Care Document ---
Author Name [facility] Organization [facility] Care Team Providers Care Ethics Instructor Name Role Phone [facility] Unavailable Unavailable Problems Combined list of problems from Department of Defense and Veterans Affairs facilities. It does not include entries that were removed or entered in error. Problem Status Onset Date Problem Type Date of Resolution Comments Source Asthma Active 02/27/2024 Diagnosis 0310M-AF-C- 6 [facility] Encounter for other administrative examinations Active 02/27/2024 Diagnosis 4832H-VM-K-6 [facility] LBP - Low back pain Active 09/10/2023 Diagnosis 5712H-CF-O-6 [facility] Pain in left leg Active 09/10/2023 Diagnosis 03 10C-AF-C-6 [facility] Nicotine dependence Active 09/10/2023 Diagnosis 3317N-IT-S-6 [facility] Asthma Active 09/10/2023 Diagnosis 0310C-AF-C- 6 [facility] Palpitations Active 09/10/2023 Diagnosis 0310C- AF-C-6 [facility] Exposure to polluted air Active 09/10/2023 Diagnosis 4489T-EW-A-6 [facility] 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, 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, 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 09/10/2023 Diagnosis 0310C-AF -C-6 [facility] Bilateral tinnitus Active 08/16/2022 Condition 8525E-OE-Y-7 [facility] Acute meniscal tear, lateral Active Condition 0096C-AF-C- 7 [facility] Allergic rhinitis Active Condition 0096 C-AF-C-7 [facility] Asthma Active Condition 8271E-CZ-U-6 [facility] Exposure to polluted air Active Condition 7560G-DS-L-6 [facility] LBP - Low back pain Active Condition 03 10C-AF-C-6 [facility] Left knee pain Active Condition 0096A-A F-C-7 [facility] Meralgia paresthetica Active Condition 1268H-JH-G-7 [facility] Mild intermittent asthma, uncomplicated Active Condition -C- 7 [facility] Nicotine dependence Active Condition 03 10C--C-6 [facility] Pain in left leg Active Condition -AF-C-6 [facility] Palpitations Active Condition -AF- C-6 [facility] Allergies, Adverse Reactions, Alerts Combined list of allergies from Department of Defense and Veterans Affairs facilities. It does not include entries that were removed or entered in error. Substance Category Reaction Severity Reaction type Status Date Reported Comments Source penicillin G benzathine Propensity to adverse reactions to substance Rash Active childhood reaction Unknown Organizati on Immunizations Combined list of available immunizations from the Department of Defense and Veterans Affairs facilities. Immunization Series Date Given Administered By Site Reaction Lot Number CVX Code Drug Bilingual Social Worker Status Comments Source influenza virus vaccine, inactivated 2022 [id number] 88 complet ed influenza virus vaccine, inactivat ed 01/02/23 Recorded 309C-A -C-66t h [facility] influenza, injectable, quadrivalent 2020 [id number] 158 Seqirus complet ed influenza , injectabl e, quadrival ent 11/16/20 Given Ambulat ory Pharmac y COVID Vaccine Moderna 2020 [id number] 207 complet ed COVID Vaccine Moderna 03/24/20 Given Ambulat ory Pharmac y COVID Vaccine Moderna 2020 [id number] 207 complet ed COVID Vaccine Moderna 02/25/20 Given Ambulat ory Pharmac y influenza, injectable, quadrivalent 2019 [id number] 158 Seqirus complet ed influenza , injectabl e, quadrival ent 11/25/19 Given Ambulat ory Pharmac y influenza, injectable, quadrivalent- pf 2018 [id number] 150 Seqirus complet ed influenza , injectabl e, quadrival ent-pf 01/06/19 Given Ambulat ory Pharmac y influenza, seasonal, injectable-pf 2017 [id number] 140 Seqirus complet ed influenza , seasonal, injectabl e-pf 12/05/17 Given Ambulat ory Pharmac y tetanus-dipht h toxoids (Td) adult/adol 2017 [id number] [facility] complet ed tetanus-d iphth toxoids (Td) adult/ado l 04/18/17 Given Ambulat ory Pharmac y influenza, injectable, quadrivalent- pf 2016 [id number] 150 GlaxoSmithKli ne complet ed influenza , injectabl e, quadrival ent-pf 11/22/16 Given Ambulat ory Pharmac y influenza, injectable, quadrivalent 2015 [id number] 158 GlaxoSmithKli ne complet ed influenza , injectabl e, quadrival ent 12/02/15 Given Ambulat ory Pharmac y influenza, seasonal, injectable-pf 2014 [id number] 140 GlaxoSmithKli ne complet ed influenza , seasonal, injectabl e-pf 12/02/14 Given Ambulat ory Pharmac y tuberculin purified protein derivative 2014 [id number] 96 sanofi pasteur complet ed tuberculi n purified protein derivativ e 11/09/14 Given Ambulat ory Pharmac y influenza, live, intranasal,qu adrivalent 2013 [id number] 149 [employer] Inc comple t ed influenza , live, intranasa l,quadriv alent 11/19/13 Given Ambulat ory Pharmac y influenza, seasonal, injectable-pf 2012 [id number] 140 sanofi pasteur complet ed influenza , seasonal, injectabl e-pf 10/23/12 Given Ambulat ory Pharmac y influenza virus vaccine, live 2011 [id number] 111 Medimmune Inc comple t ed influenza virus vaccine, live 11/16/11 Given Ambulat ory Pharmac y influenza, seasonal, injectable 2010 [id number] 141 sanofi pasteur complet ed influenza , seasonal, injectabl e 02/08/11 Given Ambulat ory Pharmac y tuberculin purified protein derivative 2009 [id number] 96 sanofi pasteur complet ed tuberculi n purified protein derivativ e 01/31/10 Given Ambulat ory Pharmac y influenza virus vaccine, live 2009 [id number] 111 Medimmune Inc comple t ed influenza virus vaccine, live 11/08/09 Given Ambulat ory Pharmac y Novel influenza-H1N 1-09, injectable 2009 [id number] (F) 127 Novartis Pharmaceutica ls complet ed Novel influenza -O6M4-36, injectabl e 03/17/09 Given Ambulat ory Pharmac y tuberculin purified protein derivative 2008 [id number] 96 sanofi pasteur complet ed tuberculi n purified protein derivativ e 10/19/08 Given Ambulat ory Pharmac y Human Papillomaviru s,quadrivalen t(HPV4) 2008 [id number] 62 [employer] complet ed Human Papilloma virus,martinez drivalent (HPV4) 10/19/08 Given Ambulat ory Pharmac y influenza virus vaccine, live 2008 [id number] 111 T[employer] Inc comple t ed influenza virus vaccine, live 10/15/08 Given Ambulat ory Pharmac y anthrax vaccine 2008 [id number] 24 [employer] complet ed anthrax vaccine 03/14/08 Given Ambulat ory Pharmac y vaccinia (smallpox) vaccine 2007 [id number] 75 [employer] complet ed vaccinia (smallpox ) vaccine 01/28/08 Given Ambulat ory Pharmac y Human Papillomaviru s,quadrivalen t(HPV4) 2007 [id number] 62 Merck & T[employer] Inc complet ed Human Papilloma virus,martinez drivalent (HPV4) 01/28/08 Given Ambulat ory Pharmac y typhoid Vi capsular polysaccharid e vac 2007 [id number] 101 sanofi pasteur complet ed typhoid Vi capsular polysacch aride vac 01/23/08 Given Ambulat ory Pharmac y anthrax vaccine 2007 [id number] 24 [employer] complet ed anthrax vaccine 01/23/08 Given Ambulat ory Pharmac y influenza virus vaccine, live 2007 [id number] 111 Medi[employer]in[employer], Inc [employer] Inc comple t ed influenza virus vaccine, live 11/11/07 Given Ambulat ory Pharmac y tuberculin purified protein derivative 2007 96 complet ed tuberculi n purified protein derivativ e 03/28/07 Given Ambulat ory Pharmac y tuberculin purified protein derivative 2007 [id number] 96 sanofi pasteur complet ed tuberculi n purified protein derivativ e 03/25/07 Given Ambulat ory Pharmac y Human Papillomaviru s,quadrivalen t(HPV4) 2007 [id number] 62 Merck & Company Inc complet ed Human Papilloma virus,martinez drivalent (HPV4) 03/25/07 Given Ambulat ory Pharmac y tetanus, diphtheria, acellular pertu is 2007 [id number] 115 sanofi pasteur complet ed tetanus, diphtheri a, acellular pertussis 03/25/07 Given Ambulat ory Pharmac y influenza virus vaccine,split 2006 [id number] 15 GlaxoSmithKli ne complet ed influenza virus vaccine,s plit 11/16/06 Given Ambulat ory Pharmac y tuberculin purified protein derivative 2006 [id number] 96 sanofi pasteur complet ed tuberculi n purified protein derivativ e 04/03/06 Given Ambulat ory Pharmac y influenza virus vaccine,split 2005 [id number] 15 sanofi pasteur complet ed influenza virus vaccine,s plit 01/09/06 Given Ambulat ory Pharmac y hepatitis A adult vaccine 2005 [id number] 52 Merck & Company Inc complet ed hepatitis A adult vaccine 08/24/05 Given Ambulat ory Pharmac y hepatitis A adult vaccine 2005 [id number] [id number] 52 GlaxoSmithKli ne complet ed hepatitis A adult vaccine 02/22/05 Given Ambulat ory Pharmac y tuberculin purified protein derivative 2004 [id number] 96 sanofi pasteur complet ed tuberculi n purified protein derivativ e 02/16/05 Given Ambulat ory Pharmac y tetanus-dipht h toxoids (Td) adult/adol 2004 [id number] 09 sanofi pasteur complet ed tetanus-d iphth toxoids (Td) adult/ado l 02/16/05 Given Ambulat ory Pharmac y influenza virus vaccine,split 2004 [id number] 15 sanofi pasteur complet ed influenza virus vaccine,s plit 02/16/05 Given Ambulat ory Pharmac y poliovirus vaccine, inactivated 2004 [id number] 10 sanofi pasteur complet ed polioviru s vaccine, inactivat ed 02/16/05 Given Ambulat ory Pharmac y meningococcal polysaccharid e (MPSV4) 2004 [id number] 32 sanofi pasteur complet ed meningoco ccal polysacch aride (MPSV4) 02/16/05 Given Ambulat ory Pharmac y Results Combined list of recent chemistry, hematology [...] Prevention' s HIV diagnostic algorithm. Refer to [facility] Lab Guide for additional information : [email or web address]://kx. [facility]/ kj/kx5/EPIL ab/Pages/la b_guide.asp x Testing performed by [employer] sarayumintracey garrett. 5600A-U [facility] EPILAB Infectiou s Disease [...] the Epidemiolog y Lab Guide at https://kx. health.[facility]/ kj/kx5/EPIL ab/Pages/la b_guide.asp x for more information . Notice: This test has been modified from its original clearance by the U.S. Food and Drug Administrat ion (FDA) to allow testing of nasopharyng eal wash specimens. Test performance characteris tics were determined by [facility] . This test is for clinical use. [...] time reverse transcripta se polymerase chain reaction (young adult librarian PCR) on either original specimen or viral [...] Fact Sheet for Healthcare Providers: https://www .fda.gov/me sarahi/89438/d ownload Fact Sheet for Patients: https://www .fda.gov/wa sarahi/00697/d ownload Testing performed by young adult librarian PCR using either an assay modified from the US Food and Drug Administrat ion (FDA)-appro emile version by use of alternate specimen sources or a [facility] laboratory- developed test (LDT). Performance characteris tics of both young adult librarian PCR assays were determined by [facility] . Notice: This test was developed and its performance characteris tics determined by [facility] . It has not been cleared or [...] 5600A-U [facility] Miscellan eous Sendouts Misc Result.LC Test Performe d: Niyah Influenz a A&B + SARS Antigen Test: Result: Ref Range: Influenz a A Not Detected Not Detected Influenz a B Not Detected Not Detected SARS Ag Not Detected Not Detected Performi ng Lab: [address] [address] 08/24 0096A-A F-C-72N d [facility] [place] Miscellan eous Sendouts Misc Specimen Source? Rapid Flu/COVI D 08/24 0096A-A F-C-72N d [facility] [place] Miscellan eous Sendouts Req Order?.LC Rapid Flu/COVI D 08/24 0096A-A F-C-72N d [facility] [place] Infectiou s Disease Strep A, Rapid Negative (08/24/22 9:44 AM) 08/24 N 0096A-A F-C-72N d [facility] [place] Urinalysi s Yeast, Wet Prep None Seen (07/24/22 10:49 AM) 07/24 N 0096A-A F-C-72N d [facility] [place] Urinalysi s Bacteria, Wet Prep Rare *ABN* (07/24/22 10:49 AM) 07/24 A 0096A-A F-C-72N d [facility] [place] Urinalysi s Trichomonas , Wet Prep None Seen (07/24/22 10:49 AM) 07/24 N 0096A-A F-C-72N d [facility] [place] Urinalysi s Clue Cells, Wet Prep None Seen (07/24/22 10:49 AM) 07/24 N 0096A-A F-C-72N d [facility] [place] Urinalysi s WBC, Wet Prep Few (07/24/22 10:49 AM) 07/24 N 0096A-A F-C-72N d [facility] [place] Urinalysi s GIOVANNA None Seen (07/24/22 10:49 AM) 07/24 N 0096A-A F-C-72N d [facility] [place] Molecular Infectiou s Disease Reason for Test? Screenin g (06/28/22 9:52 AM) 06/28 N 0117A-A -ASU-5 [facility] Molecular Infectiou s Disease SARS-CoV-2 PCR Not Detected 11 (06/28/22 9:52 AM) 06/28 N Interpretiv e Data: SARS-CoV-2 DETECTED: Positive test for SARS-CoV-2 (SARS-CoV-2 RNA Present) NOT DETECTED: Negative test for SARS-CoV-2 (No SARS-CoV-2 RNA Present) INVALID: Presence or absence of SARS-CoV-2 cannot be determined. If clinically indicated, repeat assay with same sample or, if possible new sample for testing. 0117A-A -ASU-5 [facility] Molecular Infectiou s Disease Influenza B PCR [...] on is terminated or revoked sooner. 0117A-A -ASU-06 27 [facility] Molecular Infectiou s Disease Influenza A PCR [...] possible new sample for testing. 0117A-A F-ASU-5 [facility] [employer] Sendouts Mis Result. Test Performe d: Niyah Influenz a A&B + SARS Antigen Test: Result: Ref Range: Influenz a A Not Detected Not Detected Influenz a B Not Detected Not Detected SARS Ag Not Detected Not Detected 02/14 0096A-A F-C-72N d [facility] [place] Miscellan eous Sendouts [facility] [place] Source? Swab 02/14 0096A-A F-C-72N d [facility] [place] Miscellan eous Sendouts Req Order?.LC Rapid Flu/COVI D 02/14 0096A-A F-C-72N d [facility] [place] Infectiou s Disease Viral Culture Respiratory .EPI [...] n. Performed by: Epidemiolog y Laboratory Service [facility] [address] [place] [phone] 0096A-A F-C-72N d [facility] [place] Infectiou s Disease RSV A PCR.EPI NOT DETECTED 02/14 0096A-A F-C-72N d [facility] [place] Infectiou s Disease Coronavirus OC43.EPI NOT DETECTED 02/14 0096A-A F-C-72N d [facility] [place] Infectiou s Disease RSV B PCR.EPI NOT DETECTED 02/14 0096A-A F-C-72N d [facility] [place] Infectiou s Disease M. pneumoniae PCR.EPI NOT [...] the Epidemiolog y Lab Guide at https://kx2 .[facility]/k j/kx5/EPILa b/Pages/lab _guide.aspx for more information . Notice: This test has been modified from its original clearance by the U.S. Food and Drug Administrat ion (FDA) to allow testing of nasopharyng eal wash specimens. Test performance characteris tics were determined by [facility] . This test is for clinical use. It should not be regarded as investigati onal or for research use. This laboratory is accredited under the Clinical Laboratory Improvement Amendment of 1988(CLIA-8 8) as qualified to perform high-comple ty clinical laboratory testing. Methodology : Multiplex polymerase chain reaction. Performed by: Epidemiolog y Laboratory Service [facility] Bldg [address] [place] [phone] 0096A-A F-C-72N d [facility] [place] Infectiou s Disease C. pneumoniae PCR.EPI NOT DETECTED 02/14 0096A-A F-C-72N d [facility] [place] Infectiou s Disease Adenovirus PCR.EPI NOT DETECTED 02/14 0096A-A F-C-72N d [facility] [place] Infectiou s Disease Human Bocavirus PCR.EPI NOT DETECTED 02/14 0096A-A F-C-72N d [facility] [place] Infectiou s Disease Influenza A PCR.EPI NOT DETECTED 02/14 0096A-A F-C-72N d [facility] [place] Infectiou s Disease Metapneumov irus.EPI NOT DETECTED 02/14 0096A-A F-C-72N d [facility] [place] Infectiou s Disease Influenza B PCR.EPI NOT DETECTED 02/14 0096A-A F-C-72N d [facility] [place] Infectiou s Disease Rhino/Enter ovirus PCR Hyb.EPI NOT DETECTED 02/14 0096A-A F-C-72N d [facility] [place] Infectiou s Disease Parainfluen za Virus 2 PCR.EPI NOT DETECTED 02/14 0096A-A F-C-72N d [facility] [place] Infectiou s Disease Parainfluen za Virus 1 PCR.EPI NOT DETECTED 02/14 0096A-A F-C-72N d [facility] [place] Infectiou s Disease Parainfluen za Virus 4 PCR.EPI NOT DETECTED 02/14 0096A-A F-C-72N d [facility] [place] Infectiou s Disease Parainfluen za Virus 3 PCR.EPI NOT DETECTED 02/14 0096A-A F-C-72N d [facility] [place] Infectiou s Disease Coronavirus 229E.EPI NOT DETECTED 02/14 0096A-A F-C-72N d [facility] [place] Infectiou s Disease Coronavirus NL63.EPI NOT DETECTED 02/14 0096A-A F-C-72N d [facility] [place] Infectiou s Disease Coronavirus HKU1.EPI NOT DETECTED 02/14 0096A-A F-C-72N d [facility] [place] Urinalysi s UA RBC None Seen (10/19/21 11:24 AM) 10/19 N 0096A-A F-C-72N d [facility] [place] Urinalysi s UA Bacteria None Seen (10/19/21 11:24 AM) 10/19 N 0096A-A F-C-72N d [facility] [place] Urinalysi s UA Epi Squam 1-5 (10/19/21 11:24 AM) 10/19 N 0096A-A F-C-72N d [facility] [place] Urinalysi s UA WBC >50 *ABN* (10/19/21 11:24 AM) 10/19 A 0096A-A F-C-72N d [facility] [place] Urinalysi s UA Leuk Esterase Large *ABN* (10/19/21 11:24 AM) 10/19 A 0096A-A F-C-72N d [facility] [place] [facility]ys[facility] s UA Micro Ind? Indicate d (10/19/21 11:24 AM) 10/19 N 0096A-A F-C-72N d [facility] [place] Ur[facility]ys[facility] UA Color Colorles s *ABN* (10/19/21 11:24 AM) 10/19 A 0096A-A F-C-72N d [facility] [place] [facility] UA Appear Slightly Cloudy *ABN* (10/19/21 11:24 AM) 10/19 A 0096A-A F-C-72N d [facility] [place] Urinalysi s UA Ketones Negative (10/19/21 11:24 AM) 10/19 N 0096A-A F-C-72N d [facility] [place] Urinalysi s UA pH 6.0 5.0 - 8.0 10/19 N 0096A-A F-C-72N d [facility] [place] Urinalysi s UA Spec [place] 1.003 1.005 - 1.030 10/19 L 0096A-A F-C-72N d [facility] [place] Urinalysi s UA Glucose NORMAL 10/19 0096A-A F-C-72N d [facility] [place] Urinalysi s UA Nitrite Negative (10/19/21 11:24 AM) 10/19 N 0096A-A F-C-72N d [facility] [place] Urinalysi s UA Blood Moderate *ABN* (10/19/21 11:24 AM) 10/19 A 0096A-A F-C-72N d [facility] [place] Urinalysi s UA Protein Negative (10/19/21 11:24 AM) 10/19 N 0096A-A F-C-72N d [facility] [place] Urinalysi s UA Bili Negative (10/19/21 11:24 AM) 10/19 N 0096A-A F-C-72N d [facility] [place] Urinalysi s UA Urobilinoge n NORMAL 10/19 0096A-A F-C-72N d [facility] [place] Molecular Infectiou s Disease Ureaplasma spp PRAVIN Positive 10/19 A Result Comment: This test was developed and its performance characteris tics determined by [facility]. It has not been cleared or approved by the Food and Drug Administrat ion. Performed At: [address] [facility] [address] [id number] Chris Scott MD Ph:[phone] 0096A-A F-C-72N d [facility] [place] Molecular Infectiou s Disease Mycoplasma hominis PRAVIN Negative 10/19 Result Comment: This test was developed and its performance characteris tics determined by [facility]. It has not been cleared or approved by the Food and Drug Administrat ion. 0096A-A F-C-72N d [facility] [place] Molecular Infectiou s Disease Mycoplasma genitalium PRAVIN LC Negative 10/19 Result Comment: This test was developed and its performance characteris tics determined by [facility]. It has not been cleared or approved by the Food and Drug Administrat ion. 0096A-A F-C-72N d [facility] [place] Vital Signs Combined list of inpatient and outpatient Vital Signs from Department of Defense and Veterans Affairs, ranging from 12 months to all on record, depending upon the facility. Vital Sign Value Date Comments Source Systolic Blood Pressure 114 mm[Hg] 12/09/19 23 14:23:00 7273T[facility] Diastolic Blood Pressure 78 mm[Hg] 023 14:23:00 6149G-BK-T-[facility] Respiratory Rate 14 br/min 12/08/2022 14:23:00 5375Z-NO-D-[facility] BP Site Right arm 12/08/2022 14:23:00 8589B-WQ-C-[facility] Mean Arterial Pressure, Calc 90 mm[Hg] 12/08/2022 14:23:00 0255H-SK-W-[facility] Peripheral Pulse Rate 80 bpm 12/08/2022 14:23:00 2720T-CM-K-[facility] Blood Pressure Manual Automatic 12/08/2022 14:23:00 9393Q-MQ-I-[facility] BP Site Right arm 10/26/2021 14:52:00 2427G-BY-M-[facility] Blood Pressure Manual Automatic 10/26/2021 14:52:00 0314Q-MX-K-[facility] Temperature Oral 36.7 Carrie 10/26/2021 14:52:00 1979C-PN-D-[facility] Mean Arterial Pressure, Calc 92 mm[Hg] 10/26/2021 14:52:00 7249T-AO-N-[facility] Temperature Oral 36.9 Carrie 01/03/2022 14:17:00 8486F-ZE-S-[facility] Respiratory Rate 17 br/min 01/03/2022 14:17:00 5354J-FX-Q-[facility] BP Site Right arm 01/03/2022 14:17:00 0285I-KJ-B-[facility] Blood Pressure Manual Automatic 01/03/2022 14:17:00 4913R-XP-B-[facility] Systolic Blood Pressure 111 mm[Hg] 01/04/20 22 14:17:00 3500K-ZH-B-[facility] Diastolic Blood Pressure 70 mm[Hg] 022 14:17:00 9074H-KC-Y-[facility] Mean Arterial Pressure, Calc 84 mm[Hg] 01/03/2022 14:17:00 3910D-OK-E-[facility] Systolic Blood Pressure 114 mm[Hg] 01/12/20 14:55:00 7017Y-YG-X-[facility] Diastolic Blood Pressure 76 mm[Hg] 14:55:00 7593D-HR-W-72[facility] Mean Arterial Pressure, Calc 89 mm[Hg] 01/11/2022 14:55:00 1414J-SM-W-[facility] Peripheral Pulse Rate 82 bpm 01/11/2022 14:55:00 0466F-KW-X-72[facility] Respiratory Rate 14 br/min 01/11/2022 14:55:00 1355T-XL-X-72[facility] Temperature Oral 36.9 Carrie 01/11/2022 14:55:00 5814O-JB-W-72[facility] BP Site Right arm 01/11/2022 14:55:00 5123G-XS-C-72[facility] Blood Pressure Manual Automatic 01/11/2022 14:55:00 9509P-GK-I-72[facility] Respiratory Rate 16 br/min 02/14/2022 20:38:00 8495G-EQ-I-72[facility] Peripheral Pulse Rate 89 bpm 02/14/2022 20:38:00 1938I-RQ-Y-72[facility] Systolic Blood Pressure 126 mm[Hg] 02/15/20 20:38:00 3242A-MH-F-72[facility] Diastolic Blood Pressure 78 mm[Hg] 20:38:00 0232G-OJ-C-72[facility] Mean Arterial Pressure, Calc 94 mm[Hg] 02/14/2022 20:38:00 2186Q-ZQ-V-72[facility] Temperature Oral 36.8 Carrie 02/14/2022 20:38:00 5386A-IK-C-72[facility] Blood Pressure Manual Automatic 02/14/2022 20:38:00 8284E-RF-S-72[facility] BP Site Right arm 02/14/2022 20:38:00 7429R-KI-H-72[facility] Mean Arterial Pressure, Calc 88 mm[Hg] 02/22/2022 13:26:00 4868P-KM-P-[facility] Respiratory Rate 16 br/min 02/22/2022 13:26:00 9317K-ZW-N-[facility] Peripheral Pulse Rate 83 bpm 02/22/2022 13:26:00 7015O-VB-G-[facility] Systolic Blood Pressure 114 mm[Hg] 02/22/19 13:26:00 8811G-ZH-R-[facility] Diastolic Blood Pressure 75 mm[Hg] 023 13:26:00 7643G-WA-X-[facility] Respiratory Rate 16 br/min 08/24/2022 14:59:00 7185F-XM-C-72[facility] Peripheral Pulse Rate 78 bpm 08/24/2022 14:59:00 1431L-MA-A-72[facility] Mean Arterial Pressure, Calc 85 mm[Hg] 08/24/2022 14:59:00 0831M-LN-R-72[facility] Blood Pressure Manual Automatic 08/24/2022 14:59:00 2560O-QV-T-72[facility] BP Site Right arm 08/24/2022 14:59:00 0774P-AX-M-[facility] Temperature Oral 36.9 Carrie 08/24/2022 14:59:00 4475G-OL-K-[facility] Systolic Blood Pressure 125 mm[Hg] 08/25/19 23 14:59:00 0957N-PO-U-[facility] Diastolic Blood Pressure 65 mm[Hg] 023 14:59:00 0242I-NN-F-[facility] Respiratory Rate 14 br/min 06/11/2023 12:11:00 2202W-IE-R-[facility] BP Site Left arm 06/11/2023 12:11:00 7382B-RX-T-[facility] Blood Pressure Manual Automatic 06/11/2023 12:11:00 5756K-CM-U-[facility] Systolic Blood Pressure 135 mm[Hg] 06/11/19 24 12:11:00 8408B-IT-Y-[facility] Diastolic Blood Pressure 85 mm[Hg] 024 12:11:00 8442C-FA-C-[facility] Mean Arterial Pressure, Calc 102 mm[Hg] 06/11/2023 12:11:00 5024D-AL-U-[facility] Peripheral Pulse Rate 80 bpm 06/11/2023 12:11:00 9444I-DY-Z-[facility] Temperature Oral 36.9 Carrie 10/19/2021 15:52:00 9794C-EF-N-[facility] BP Site Right arm 10/19/2021 15:52:00 7649X-MZ-N-[facility] Blood Pressure Manual Automatic 10/19/2021 15:52:00 1376B-MQ-H-[facility] Respiratory Rate 16 br/min 05/29/2022 16:28:00 7657V-YT-R-[facility] BP Site Right arm 05/29/2022 16:28:00 5724K-FZ-V-[facility] Blood Pressure Manual Automatic 05/29/2022 16:28:00 1975P-XN-L-[facility] Systolic Blood Pressure 138 mm[Hg] 05/30/19 23 16:28:00 8553P-HE-J-[facility] Diastolic Blood Pressure 88 mm[Hg] 023 16:28:00 2498P-GC-L-72Nd [facility] Mean Arterial Pressure, Calc 105 mm[Hg] 05/29/2022 16:28:00 9413X-BV-J-72Nd [facility] Peripheral Pulse Rate 80 bpm 05/29/2022 16:28:00 4392H-NX-X-72Nd [facility] Temperature Oral 36.8 Carrie 05/29/2022 16:28:00 7890Q-SH-G-72Nd [facility] Peripheral Pulse Rate 100 bpm 06/28/2022 16:32:00 4135V-HI-PBD-59th [facility] Respiratory Rate 16 br/min 07/24/2022 15:31:00 5911X-CV-G-72Nd [facility] Temperature Oral 36.7 Carrie 07/24/2022 15:31:00 9780V-JH-S-72Nd [facility] BP Site Right arm 07/24/2022 15:31:00 8565C-GS-V-72Nd [facility] Blood Pressure Manual Automatic 07/24/2022 15:31:00 0593H-QF-U-72Nd [facility] Systolic Blood Pressure 138 mm[Hg] 07/25/19 23 15:31:00 6966U-XF-W-72Nd [facility] Diastolic Blood Pressure 89 mm[Hg] 023 15:31:00 4327D-KS-X-72Nd [facility] Mean Arterial Pressure, Calc 105 mm[Hg] 07/24/2022 15:31:00 6021C-QV-S-72Nd [facility] Peripheral Pulse Rate 97 bpm 07/24/2022 15:31:00 3660W-RV-K-72Nd [facility] Temperature Oral 36.9 Carrie 06/28/2022 14:39:00 6500P-GU-VCX-59th [facility] Peripheral Pulse Rate 115 bpm 06/28/2022 14:39:00 5461G-BM-MMU-59th [facility] Respiratory Rate 18 br/min 06/28/2022 14:39:00 6537D-WA-XWC-59th [facility] Systolic Blood Pressure 140 mm[Hg] 06/29/19 23 14:39:00 3899E-ES-YHJ-59th [facility] Diastolic Blood Pressure 90 mm[Hg] 023 14:39:00 5019I-XI-TUS-59th [facility] Temperature Oral 36.7 Carrie 05/26/2021 13:38:00 0950V-AN-W-72Nd [facility] Encounters Combined list of: 1) Encounters from [facility] facilities going backup to the last 18 months, not all [place] inpatient encounters are included; 2) 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 Location Location Details Encounter Type Encounter Number Reason For Visit Attending Provider ADM Date DC Date Status Disposition Source [facility] Outpatient [id number] [facility] 06/10 Discharge Disposition: Home or Self Care 0A-A F-C-66t h [facility] 0A-AF- C- [facility] Between Visit [id number] 08/21 Discharge Disposition: Home or Self Care 0310A-A F-C-t h [facility] 0-AF- C- [facility] Dental [id number] OSMEL QUEVEDOBOBBYALPHONSO CEDENO 08/27 Discharge Disposition: Home or Self Care 0C-A F-C-t h [facility] 0C-AF- C- [facility] Clinic [id number] Palpita tions,U nspecif ied asthma, uncompl icated, Nicotin e depende nce, unspeci fied, uncompl icated, Contact with and (suspec will) exposur e to air polluti on,Low back pain, unspeci fied,Pa in in left lower leg,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, 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, 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) AUDREY [facility] 09/09 Discharge Disposition: Home or Self Care 0310C-A F-C-66t h [facility] 0-AF- C- [facility] [id number] Encount er for other adminis trative examina tions,U nspecif ied asthma, uncompl icated AUDREY [facility] 02/26 Discharge Disposition: Home or Self Care 0M-A F-C-66t h [facility] Procedures Combined list of: 1) Procedures from [facility] facilities going back up to thelast 18 months, not all [facility] non-surgical procedures are included; 2) All procedures from the Department of Defense facilities. Procedure Procedure Type Code Date Perfomer Comments Jaycob pace SEPTOPLASTY/RHIN OPLASTY 02/19/20142013 9119J-FU-A-72N d [facility] Left knee torn meniscus surgery 02/19/2009 0096C-AF -C-72N d [facility] WTEx1 2011 8726L-IR-R-66t h [facility] Cardiac imaging procedure Normal per SM. 0310C-AF-C -66t h [facility] Social History Combined list of available smoking, tobacco, and other social history from Department of Defense and Veterans Affairs facilities. 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 F/U with PCM as needed for any medical issues related to exposure.? Shayy Walden CTR?MANAGER GARAGE-C [facility] Provider Flight Medicine? ?[employer] [place], [place]??[address] Dmxuqe [phone] ? Extracted from:Title: RERE-ACACIA Author: AUDREY MILIAN [...] consider. ? Eren Milian,?APA-C Aerospace Medicine Physician Analytics Intern/CREPING MACHINE OPERATOR [employer] [place] ? ? Extracted from:Title: FTF-ARILO Author: AUDREY MILIAN PA Date: 12/08/22 1.?Mild intermittent asthma, uncomplicated ARILO completed and submitted?.? Ordered: albuterol(Albuterol (Eqv-ProAir HFA) 90 mcg/inh inhalation aerosol), 2 puff(s), Inhale, every 6 hr, # 6.7 g, 3 total refill(s), Maintenance, 2 puff(s) Inhale every 6 hr, Pharmacy: [facility] [Not filled] fluticasone nasal(Flonase 50 mcg/inh nasal spray), 50 mcg, Nostril-Both, BID, # 16 g, 5 total refill(s), Maintenance, 50 mcg Nostril-Both BID, Pharmacy: [facility] [Federal Rx: #16 last filled 12/08/22] fluticasone(Flovent HFA 44 mcg/inh aerosol inhaler), 88 mcg, Inhale, BID, # 10.6 g, 0 total refill(s), Maintenance, 88 mcg Inhale BID, Pharmacy: [facility] [Last filled 12/08/22] naproxen(naproxen 500 mg oral tablet), 1 tab(s), Oral, BID w/Meals, # 84 tab(s), 0 total refill(s), Acute, 12/09/2023, 1 tab(s) Oral BID w/Meals, Pharmacy: [facility] [Last filled 12/08/22] montelukast(Singulair 10 mg oral tablet), 1 tab(s), Oral, Daily, # 90 tab(s), 3 total refill(s), Maintenance, 1 tab(s) Oral Daily, Pharmacy: [facility] [Federal Rx: #90 last filled 12/08/22] cetirizine(ZyrTEC 10 mg oral tablet), 1 tab(s), Oral, Daily, PRN allergy symptoms, # 90 tab(s), 3 total refill(s), Maintenance, 1 tab(s) Oral Daily,PRN:allergy symptoms, Pharmacy: [facility] [Not filled] ? Eren Milian,?APA-C Aerospace Medicine Physician Analytics Intern/[facility] [employer] [place] ? ? Extracted from:Title: CSSP Author: MICHELL CAAL Date: 08/24/22 Influenza due to unidentified influenza virus with other respiratory manifestations Nasal congestion ? Care Pathways Current Visit [facility] Adult [facility](Started Date: August 24, 2022[facility] ?- INCLUSION criterion: Patient [...] BID,x7 days,Instr:do not drink alcohol, Pharmacy: [facility] [Last filled 07/24/22] ? Total time spent caring for this patient today was?20 minutes with greater than 50% of time spent on counseling/education..? This includes time spent before the visit reviewing the chart, time spent during the visit, time spent after the visit on documentation, and time spent on care coordination. 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 --MHA/PHA updated in [facility]. -- ? ?Priority responses addressed- Member reports she had chest pain and irregular heartbeat in the past, the issue has been addressed by cardiology. Denies any immediate needs. No referral indicated. --IMR reviewed --Profile- MR --[id number] min spent on encounter ? 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 4.?Tobacco use Member reports tobacco use- not interested in quitting at this time. ? ELIZABETH To Nurse Practitioner, [address] [facility], [place] [employer], [place] ? Extracted from:Title: ARILO asthma [...] 2 puff(s) Inhale every 4 hr,PRN:wheezing, Pharmacy: [facility] [Federal Rx: #25.5 last filled 05/29/22] cetirizine(cetirizine 10 mg oral tablet), 1 tab(s), Oral, Daily, # 90 tab(s), 3 total refill(s), Maintenance, 1 tab(s) Oral Daily, Pharmacy: [facility] [Not filled] fluticasone nasal(Flonase 50 mcg/inh nasal spray), 50 mcg, Nostril-Both, BID, # 16 g, 3 total refill(s), Maintenance, 50 mcg Nostril-Both BID, Pharmacy: [facility] [Federal Rx: #16 last filled 05/29/22] montelukast(montelukast 10 mg oral tablet), 1 tab(s), Oral, Daily, # 90 tab(s), 3 total refill(s), Maintenance, 1 tab(s) Oral Daily, Pharmacy: [facility] [Not filled] sodium chloride nasal(NeilMed Sinus [...] request of MRF to present to the [employer] screening team indicating the distance she should be from an MTF due to her Asthma diagnosis. Patient states [...] A/B/C Virus Pnl EPI [id number] HIV-1/O/2 EPI [id number] Extracted from:Title: Office Clinic Note- Flu like [...] every 4 hr,PRN:as needed for cough, Pharmacy: [facility] [Not filled] guaiFENesin(guaiFENesin 600 mg oral tablet, extended release), 1 tab(s), Oral, every 12 hr, # 20 tab(s), 0 total refill(s), Acute, 03/17/2022, 1 tab(s) Oral every 12 hr, Pharmacy: [facility] [Not filled] ibuprofen(ibuprofen 400 mg oral tablet), 1 tab(s), Oral, every 4 hr, PRN pain, # 60 tab(s), 0 total refill(s), Acute, 03/17/2022, 1 tab(s) Oral every 4 hr,PRN:as needed for pain, Pharmacy: [facility] [Not filled] oseltamivir(Tamiflu 75 mg oral capsule), 1 cap(s), Oral, BID, X 5 days, # 10 cap(s), 0 total refill(s), Acute, 02/19/2022, 1 cap(s) Oral BID,x5 days, Pharmacy: [facility] [Not filled] Miscellaneous Manual LC ? [...] 1 tab(s) Oral every 12 hr, Pharmacy: [facility] [Not filled] predniSONE(predniSONE 50 mg oral tablet), 1 tab(s), Oral, Daily, X 7 days, # 7 tab(s), 0 total refill(s), Acute, 1 tab(s) Oral Daily,x7 days, Pharmacy: [facility] [Not filled] Extracted from:Title: Cough and pharyngitis Author: LEONARDO IVAN NP Date: 01/03/22 1.?Cough Ordered: dextromethorphan-guaifenesin(Mu cinex DM 600 mg-30 mg oral tablet, extended release), 1 tab(s), Oral, every 12 hr, # 28 tab(s), 0 total refill(s), Acute, 01/17/2022, 1 tab(s) Oral every 12 hr, Pharmacy: [facility] [Not filled] ? 2.?Pharyngitis Ordered: acetaminophen(acetaminophen 500 mg oral tablet), 1 tab(s), Oral, every 4 hr, PRN pain or fever, # 100 tab(s), 1 total refill(s), Acute, 01/03/2023, 1 tab(s) Oral every 4 hr,PRN:as needed for pain or fever, Pharmacy: [facility] [Not filled] ? Extracted from:Title: Follow-up [...] Follow these instructions at home: Medicines Take zuna-qkn-somhubv and prescription medicines only as told by [...] provider. Document Revised: 09/17/2020 Document Reviewed: 09/17/2020 [email or web address] Patient Education ? 2021 [employer]. 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 F/U with PCM as needed for any medical issues related to exposure.? Shayy Walden CTR?MANAGER GARAGE-C [facility] Provider Flight Medicine? ?[employer] [place]??[id number] office- [phone] ? Extracted from:Title: LAURIEF-ACACIA Author: AUDREY MILIAN PA Date: 06/11/23 1.?Mild [...] consider. ? Eren Milian,?APA-C Aerospace Medicine Physician Analytics Intern/[address] [place] ? ? Extracted from:Title: LAURIEF-BLAYNEJERAD Author: AUDREY MILIAN PA Date: 12/08/22 1.?Mild intermittent asthma, uncomplicated ACACIA completed and submitted?.? Ordered: albuterol(Albuterol (Eqv-ProAir HFA) 90 mcg/inh inhalation aerosol), 2 puff(s), Inhale, every 6 hr, # 6.7 g, 3 total refill(s), Maintenance, 2 puff(s) Inhale every 6 hr, Pharmacy: [facility] [[facility] filled] fluticasone nasal(Flonase 50 mcg/inh nasal spray), 50 mcg, Nostril-Both, BID, # 16 g, 5 total refill(s), Maintenance, 50 mcg Nostril-Both BID, Pharmacy: [facility] [Federal Rx: #16 last filled 12/08/22] fluticasone(Flovent HFA 44 mcg/inh aerosol inhaler), 88 mcg, Inhale, BID, # 10.6 g, 0 total refill(s), Maintenance, 88 mcg Inhale BID, Pharmacy: [facility] [Last filled 12/08/22] naproxen(naproxen 500 mg oral tablet), 1 tab(s), Oral, BID w/Meals, # 84 tab(s), 0 total refill(s), Acute, 12/09/2023, 1 tab(s) Oral BID w/Meals, Pharmacy: [facility] [Last filled 12/08/22] montelukast(Singulair 10 mg oral tablet), 1 tab(s), Oral, Daily, # 90 tab(s), 3 total refill(s), Maintenance, 1 tab(s) Oral Daily, Pharmacy: [email or web address] [Federal Rx: #90 last filled 12/08/22] cetirizine(ZyrTEC 10 mg oral tablet), 1 tab(s), Oral, Daily, PRN allergy symptoms, # 90 tab(s), 3 total refill(s), Maintenance, 1 tab(s) Oral Daily,PRN:allergy symptoms, Pharmacy: [email or web address] [Not filled] ? Eren Milian,?APA-C Aerospace Medicine Physician Analytics Intern/[address] [place] ? ? Extracted from:Title: CSSP Author: MICHELL CAAL Date: 08/24/22 Influenza due to unidentified influenza virus with other respiratory manifestations Nasal congestion ? Care Pathways Current Visit [facility] Adult Cold(Started Date: August 24, 2022)?[facility] Adult Cold v3 ?- INCLUSION criterion: Patient [...] BID,x7 days,Instr:do not drink alcohol, Pharmacy: [facility] [Last filled 07/24/22] ? Total time spent caring for this patient today was?20 minutes with greater than 50% of time spent on counseling/education..? This includes time spent before the visit reviewing the chart, time spent during the visit, time spent after the visit on documentation, and time spent on care coordination. 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 --MHA/PHA updated in [facility]. -- ? ?Priority responses addressed- Member reports she had chest pain and irregular heartbeat in the past, the issue has been addressed by cardiology. Denies any immediate needs. No referral indicated. --IMR reviewed --Profile- MR --[id number] min spent on encounter ? 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 4.?Tobacco use Member reports tobacco use- not interested in quitting at this time. ? ELIZABETH To Nurse Practitioner, [facility] [employer], [place], [place] ? Extracted from:Title: ARILO asthma Author: [...] 2 puff(s) Inhale every 4 hr,PRN:wheezing, Pharmacy: [facility] [Federal Rx: #25.5 last filled 05/29/22] cetirizine(cetirizine 10 mg oral tablet), 1 tab(s), Oral, Daily, # 90 tab(s), 3 total refill(s), Maintenance, 1 tab(s) Oral Daily, Pharmacy: [facility] [Not filled] fluticasone nasal(Flonase 50 mcg/inh nasal spray), 50 mcg, Nostril-Both, BID, # 16 g, 3 total refill(s), Maintenance, 50 mcg Nostril-Both BID, Pharmacy: [facility] [Federal Rx: #16 last filled 05/29/22] montelukast(montelukast 10 mg oral tablet), 1 tab(s), Oral, Daily, # 90 tab(s), 3 total refill(s), Maintenance, 1 tab(s) Oral Daily, Pharmacy: [facility] [Not filled] sodium chloride nasal(NeilMed Sinus [...] request of MRF to present to the [employer] screening team indicating the distance she should be from an MSF due to her Asthma diagnosis. Patient states [...] A/B/C Virus Pnl EPI [id number] HIV-1/O/2 EPI [id number] Extracted from:Title: Office Clinic Note- Flu like [...] every 4 hr,PRN:as needed for cough, Pharmacy: [facility] [Not filled] guaiFENesin(guaiFENesin 600 mg oral tablet, extended release), 1 tab(s), Oral, every 12 hr, # 20 tab(s), 0 total refill(s), Acute, 03/17/2022, 1 tab(s) Oral every 12 hr, Pharmacy: [facility] [Not filled] ibuprofen(ibuprofen 400 mg oral tablet), 1 tab(s), Oral, every 4 hr, PRN pain, # 60 tab(s), 0 total refill(s), Acute, 03/17/2022, 1 tab(s) Oral every 4 hr,PRN:as needed for pain, Pharmacy: [facility] [Not filled] oseltamivir(Tamiflu 75 mg oral capsule), 1 cap(s), Oral, BID, X 5 days, # 10 cap(s), 0 total refill(s), Acute, 02/19/2022, 1 cap(s) Oral BID,x5 days, Pharmacy: [facility] [Not filled] Miscellaneous Manual LC ? [...] 1 tab(s) Oral every 12 hr, Pharmacy: [facility] [Not filled] predniSONE(predniSONE 50 mg oral tablet), 1 tab(s), Oral, Daily, X 7 days, # 7 tab(s), 0 total refill(s), Acute, 1 tab(s) Oral Daily,x7 days, Pharmacy: [facility] [Not filled] Extracted from:Title: Cough and pharyngitis Author: LEONARDO IVAN NP Date: 01/03/22 1.?Cough Ordered: dextromethorphan-guaifenesin(Mu cinex DM 600 mg-30 mg oral tablet, extended release), 1 tab(s), Oral, every 12 hr, # 28 tab(s), 0 total refill(s), Acute, 01/17/2022, 1 tab(s) Oral every 12 hr, Pharmacy: [facility] [Not filled] ? 2.?Pharyngitis Ordered: acetaminophen(acetaminophen 500 mg oral tablet), 1 tab(s), Oral, every 4 hr, PRN pain or fever, # 100 tab(s), 1 total refill(s), Acute, 01/03/2023, 1 tab(s) Oral every 4 hr,PRN:as needed for pain or fever, Pharmacy: [facility] [Not filled] ? Extracted from:Title: Follow-up [...] Follow these instructions at home: Medicines Take [id number]-[id number] and prescription medicines only as told by [...] provider. Document Revised: 09/17/2020 Document Reviewed: 09/17/2020 [email or web address] Patient Education ? 2021 [employer]. 06/03/2024 [id number]-[id number]-[id number] [facility] Functional Status Combined list of recent functional and cognitive assessments recorded at Department of Defense and Veterans Affairs (VA).VA Functional Monroe Measurement (FIM) Scale: 1 = Total Assistance (Subject = 0% +), 2 = Maximal Assistance (Subject = 25% +), 3 = Moderate Assistance (Subject = 50% +), 4 = Minimal Assistance (Subject = 75% +), 5 = Supervision, 6 = Modified Monroe (Device), 7 = Complete Monroe (Timely, Safely). Assessment Date/Time Source Assessment Type Assessment Skill Assessment Score Assessment Details No data available for this section
== END 2024-06-03 09:48 | disposition home or self-care (01) ==
LOC: HO.RESP 09:47
PROVIDERS: Visit Provider Nurse Practitioner Family
DX: J45.909 Unspecified asthma, uncomplicated (principal)
CPT/HCPCS: 94010; 94640; 94727; 94729

== ENCOUNTER → 2024-06-03 09:49 | Outpatient (BNV) | payer OTHER, SELFPAY | PROVIDERS: Visit Provider Hospitalist | DX: J45.909 Unspecified asthma, uncomplicated (principal) | CPT/HCPCS: 94060; 94727; 94729 ==

== ENCOUNTER 2024-06-16 12:21 | Outpatient (AMB) | payer OTHER, SELFPAY ==
--- NOTE | 2024-06-16 15:17 | A.OFFPC_ITS ---
Intake Visit Reasons: please schedule telehealth to review PFT Allergies acetaminophen [From Vicodin] Allergy (Mild, Verified 06/16/24 15:17) Rash hydrocodone [From Vicodin] Allergy (Mild, Verified 06/16/24 15:17) Rash Penicillins Allergy (Verified 06/16/24 15:17) Hallucinations meloxicam Adverse Reaction (Mild, Verified 06/16/24 15:17) nightmares Medication List - Last Reconciled 06/16/24 by Mague Doss, [facility] albuterol sulfate 90 mcg/actuation 2 puffs inhalation Q4H PRN cetirizine 10 mg PO DAILY fluticasone propionate 50 mcg/actuation 1 inh inhalation BID montelukast 10 mg PO DAILY Tobacco use date assessed: 04/24/24 Dental Screening Dental Screen Date: 04/24/24 HPI HPI Comments History of Present Illness Details 38 y/o F with Mild/Moderate asthma, Oleg rgies. Heart Murmur, Palpitations, lumbar disc herniation SurgHx: L knee meniscus 2009. Dev Septum Nasal surgery. FHx: Sister Juan Francisco White White syndrome. Dad: Seizures. GM: Thyroid. SocHx: Quit Cigs 2014 and still Vapes, EtOH 1-2 beers on a Fri or Sat. No drugs Health Maintenance Tdap UTD Flu UTD Pap last one 2 years ago, normal Specialists PT History of Present Illness - The patient is a 38-year-old female pr esenting with a review of pulmonary function test (PFT) results to evaluate asthma control. - The test was performed as part of [facility] health requirements to es tablish current asthma status and ascertain control levels. - The elevated diffusion capacity observ ed in this recent PFT, lacks a previous standard for direct comparison. - Past pulmonary function testing was pr imarily managed at bases where historical data over the past 15 years was reviewed annually. 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 - History includes an annual PFT review process fundamental to maintaining job status. - Potential exposure in the past was not ed, with previous records indicating stable asthma management. - Preceding lab work done in February lac ked a complete blood count (CBC) despite a normal panel, indirectly implying no significant systemic abnormalities. PFT results as below. Assessment and Plan 1. Asthma The patient's pulmonary function test revealed elevated diffusion capacity, raising potential concerns of carbon monoxide exposure. No immediate methacholine challenge is required given the established asthma diagnosis. We will seek previous pulmonary function test results to establish a comparison baseline, and the patient may consult with Dr. Plunkett, the branch operations specialist, as needed. A complete blood count may be considered if necessary after comparing further data. The full PFT report will be available in the patient's portal for occupational submission. Ongoing asthma management remains unchanged at present. Asked she upload previous PFT to portal for me to review. This could be her ba seline/normal variant. Telehealth Attestation The visit was conducted through telehealth, and the documentation accurately reflects the discussion and findings from this encounter. The patient has been explained that this is an interactive (audio/video) telehealth encounter and what that consists of. The patient understands and wishes to proceed. Blackfoot platform was used. Total time spent caring for the patient today was 22 minutes. This includes time spent before the visit reviewing the chart, time spent during the visit, and time spent after the visit on documentation, reviewing laboratory results, diagnostic imaging, medications, performing a medically necessary evaluation, counseling on diagnoses, care coordination, ordering appropriate tests, ordering appropriate medications, review of tests performed by other providers, reporting test results with the patient, communication with other healthcare providers. [place] [id number] Pulmonary Function Report Signed Patient: Silva Ventura MR#: [id number] : 1985 Acct:[id number] Age/Sex: 38 / F ADM Date: 06/03/24 Loc: HO.RESP Attending Dr: Mague GARAY Ordering Physician: Mague Doss Date of Service: 06/03/24 Procedure(s): PFT pulmonary function test Accession Number(s): [id number] cc: Mague Doss~ Indication: Asthma Spirometry [FEV1 to FVC 83%; FEV1 3.92 L; FVC 4.75 L. No significant response to bronchodilators noted.] Lung Volumes [Total lung capacity 106% predicted] Diffusion Capacity [DLCO 127% predicted] Comparisons [none] Interpretation No obstructive nor restrictive ventilatory defects identified. No significant response to bronchodilators noted. Lung volumes are within normal limits. The patient's diffusing capacity is significantly elevated. Need to consider exogenous exposure to carbon monoxide. If asthma is in the differential a methacholine challenge may be helpful for the assessment of hyperreactive a irways. Clinical correlation warranted. Dictated By: Patric Plunkett MD Signed By: <Electronically signed by Patric Plunkett MD> 06/04/24 0828 DD/ 1027 TD/TT: 06/03/24 1027 Staff Software Engineer: [facility] Medical History (Updated 04/24/24 @ 16:02 by Mague Doss, [facility]) Asthma Deviated nasal septum Herniated intervertebral disc of lumbar spine Meralgia paresthetica, left lower limb Nasal congestion with rhinorrhea Surgical History (Updated 01/29/24 @ 15:34 by SHITAL Mckeon) H/O lateral meniscus repair of left knee Social History (Updated 01/29/24 @ 15:34 by SHITAL Mckeon) Patient Tobacco Use Status: Never used Tobacco e-Cigarette/Vaping Use: Currently Using Second Hand Smoke Exposure: Yes service: Yes Current occupational status: employed 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 Raymundo Fleming, Hilary Abebe, Varun Bravo and colleagues, with an educational louise from [employer]. Physical exam (Primary Care) Tobacco/Smoking Status: Tobacco use Status Tobacco use date assessed 04/24/24 06/06/24 14:17 Patient Tobacco Use Status Never used Tobacco 06/06/24 14:17 e-Cigarette/Vaping Use Currently Using 06/06/24 14:17 Thrive Assessment: Date of Thrive Assessment Date Thrive assessed 04/24/24 06/06/24 14:17 Telehealth Telehealth [facility]health [facility] Location of provider rendering services: practice address Location of patient: address on file Patient Identification confirmed using: Name, : Yes Telehealth method: voice only Patient verbally consented to treatment: Yes Patient verbally consented to billing insurance company: Yes Patient informed of any privacy concerns related to visit: Yes Minutes spent on Phone/Video with Pt.: 12 Coding Level of Care Code Tele Est Pt Level 3 (38795) Complex EM visit Add On G2211 Diagnoses Mild intermittent asthma without complication J45.20 Asthma severity: mild Asthma persistence: intermittent Asthma complication type: uncomplicated Assessment & Plan Assessment & Plan (1) Asthma: Code(s): J45.909 - Unspecified asthma, uncomplicated Category: Medical Qualifiers: Asthma severity: mild Asthma persistence: intermittent Asthma complication type: uncomplicated Qualified Code(s): J45.20 - Mild intermittent asthma, uncomplicated Plan .
== END 2024-06-16 16:55 | disposition home or self-care (01) ==
LOC: HO.HMCFM 12:21
PROVIDERS: PCP Family Medicine; Visit Provider Nurse Practitioner Family
DX: J45.20 Mild intermittent asthma, uncomplicated (principal)

== ENCOUNTER → 2024-06-16 12:21 | Outpatient (BNVA) | payer OTHER, SELFPAY | PROVIDERS: PCP Family Medicine; Visit Provider Nurse Practitioner Family | DX: Z13.89 Encounter for screening for other disorder (principal) ==

== ENCOUNTER 2024-07-24 10:59 | Outpatient (REF) | payer OTHER, SELFPAY ==
--- NOTE | ~2024-07-24 | XR_ITS ---
EXAMINATION: XR KNEE, RIGHT CLINICAL INFORMATION: Right knee pain COMPARISON: None available. TECHNIQUE: Four views of the right knee. FINDINGS: Joint spaces are preserved. There are no osteophytes. There is no joint effusion. There is no soft tissue calcification. XR/XR knee RT 4V IMPRESSION: Unremarkable right knee Electronically signed by: Reed Barber MD 07/24/2024 12:20 PM EDT
== END 2024-07-24 11:00 | disposition home or self-care (01) ==
LOC: HO.HMGCX 10:59
PROVIDERS: PCP Family Medicine; Visit Provider Nurse Practitioner Family
DX: S46.811A Strain of other muscles, fascia and tendons at shoulder and upper arm level, right arm, initial encounter (principal)
CPT/HCPCS: 73564; 99212

== ENCOUNTER 2024-07-24 10:59 | Outpatient (AMB) | payer OTHER, SELFPAY ==
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
[2024-07-24 11:02] VITALS: BP 138/84; PULSE 93; TEMP 36.8; O2SAT 98; BMI 29.8
== END 2024-07-24 11:37 | disposition home or self-care (01) ==
PROVIDERS: PCP Family Medicine; Visit Provider Nurse Practitioner Family
DX: S46.811A Strain of other muscles, fascia and tendons at shoulder and upper arm level, right arm, initial encounter (principal)

== ENCOUNTER → 2024-07-24 11:36 | Outpatient (BNV) | payer OTHER, SELFPAY | PROVIDERS: PCP Family Medicine; Visit Provider Radiology Diagnostic Radiology | DX: M25.561 Pain in right knee (principal) | CPT/HCPCS: 73564 ==

== ENCOUNTER 2024-08-27 15:31 | Outpatient (AMB) | payer OTHER, SELFPAY ==
--- NOTE | 2024-08-27 15:36 | A.OFFPC_ITS ---
Vital Signs 08/27/24 15:42 Height 5 ft 7 in Weight 191 lb 4 oz BMI 30.0 BP 136/71 Blood Pressure Location Rt brachial Position Sitting Respiration 16 Pulse 81 Pulse Source Pulse Oximeter Temp 98.4 F Temp Source Oral Pulse Oximetry (%) 100 Oxygen Delivery Method Room Air Intake Visit Reasons: injury her knee has some swelling Intake Note: patient here c/o injury to right knee and has some swelling Manager Advertising Required: No Is last menstrual period known: Yes Last menstrual period: 08/27/24 Post menopausal: No Patient : No Allergies acetaminophen (From Vicodin) Allergy (Mild, Verified 08/27/24 15:41) Rash hydrocodone (From Vicodin) Allergy (Mild, Verified 08/27/24 15:41) Rash Penicillins Allergy (Verified 08/27/24 15:41) Hallucinations meloxicam Adverse Reaction (Mild, Verified 08/27/24 15:41) nightmares Medication List - Last Reconciled 08/27/24 by Ranulfo River MD albuterol sulfate 90 mcg/actuation 2 puffs inhalation Q4H PRN cetirizine 10 mg PO DAILY cyclobenzaprine 10 mg PO BEDTIME fluticasone propionate 50 mcg/actuation 1 inh inhalation BID montelukast 10 mg PO DAILY Tobacco use date assessed: 08/27/24 Dental Screening Dental Screen Date: 08/27/24 Did you have a dental visit in the last 12 months?: Yes Did you have a dental problem in the last 6 months where you did not have access to dental care?: No Was dental information given to patient?: Patient has dentist HPI injury her knee has some swelling HPI Details 39 y/o female presents today with compla ints of knee pain. Had seen walk in clinic 07/24/24 for R knee pain - had picked up a heavy box, turned around and heard a pop coming from R knee. Knee x-ray 07/24/24 was unremarkable. [facility] Medical History (Updated 08/27/24 @ 16:21 by Ranulfo River MD) Sprain of supraspinatus muscle or tendon Herniated intervertebral disc of lumbar spine Deviated nasal septum Nasal congestion with rhinorrhea Asthma Meralgia paresthetica, left lower limb Surgical History H/O lateral meniscus repair of left knee Social History (Reviewed 07/24/24 @ 11:05 by Minoo Hawk [facility]) Housing: House Patient Tobacco Use Status: Never used Tobacco e-Cigarette/Vaping Use: Currently Using Second Hand Smoke Exposure: Yes Patient : No service: Yes Current occupational status: employed 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 Current occupational exposures/hazards: Yes Cognitive needs: No Hearing needs: No Vision needs: No Female Reproductive History Menstrual Date of last menstrual period: 08/27/24 Questionnaire Thrive Questionnaire Date Thrive assessed: 04/24/24 I am a: Patient What is your living situation today?: I have a steady place to live Within the past 12 months, did the food you bought not last and you didn't have the money to get more?: Never true Within the past 12 months, did you worry whether your food would run out before you got money to buy more?: Never true Do you have trouble paying for medicines?: No Do you have trouble getting transportation to medical appointments?: No Do you have trouble paying your heating and electricity bill?: No Do you have trouble taking care of your child, family member or friend?: No Do you have trouble with day-to-day activities such as bathing, preparing meals, shopping, managing finances, etc.?: No Are you currently unemployed and looking for a job?: No Are you interested in more education?: No Please select the resources that you would like help with: None Currently or been in a relationship where the following occur: No concerns reported THRIVE Score: 0 ERIC-7 AMB Questionnaire ERIC-7 Date ERIC - 7 assessed: 04/24/24 Source: Developed by Drs. Raymundo Fleming, Hilary Abebe, Varun Bravo and colleagues, with an educational louise from [employer]. Review of Systems Const Denies chills, Denies fatigue, Denies fever(s), Denies headache(s) and Denies weakness ENT Denies dizziness and Denies headache(s) Card Denies dyspnea Resp Denies cough, Denies dyspnea, Denies wheezing and Denies other (shortness of breath) Musc Details: Knee pain Denies numbness and Denies tingling Neuro Denies dizziness, Denies headache(s), Denies numbness, Denies tingling and Denies weakness Psych Denies anxiety and Denies depression Endo Denies fatigue Aller/Immun Denies wheezing Physical exam (Primary Care) Vital Signs: Last Vital Signs Temp 98.4 F 08/27/24 15:42 Pulse 81 08/27/24 15:42 Resp 16 08/27/24 15:42 BP 136/71 08/27/24 15:42 Pulse Ox 100 08/27/24 15:42 Oxygen Delivery Method Room Air 08/27/24 15:42 BMI result Body Mass Index 30.0 Tobacco/Smoking Status: Tobacco use Status Tobacco use date assessed 08/27/24 08/27/24 15:45 Patient Tobacco Use Status Never used Tobacco 08/27/24 15:45 e-Cigarette/Vaping Use Currently Using 08/27/24 15:45 Thrive Assessment: Date of Thrive Assessment Date Thrive assessed 04/24/24 08/27/24 15:45 Currently or been in a relationship where the following occur: No concerns reported Const General: well developed; No acute distress Nutritional Appearance: well nourished Orientation/consciousness: patient oriented x3 HENMT Head: Yes normocephalic and Yes atraumatic Eyes General: appearance normal, both eyes and all related structures Pupils: Equal, round and reactive pupils present EOM: EOMs intact bilaterally Resp Effort & Inspection: normal respiratory effort Neuro General: patient oriented x3 and gait normal Cranial nerves: Yes Equal, round and reactive pupils present Psych Affect: normal affect Coding Level of Care Code Est Pt Level 3 (84716) Diagnoses Knee pain M25.569 Assessment & Plan Assessment & Plan (1) Knee pain: Code(s): M25.569 - Pain in unspecified knee Category: Medical Plan: Injury to right knee; foot was planted wall patient turned and she felt injury similar to prior pain an injury at left knee - prior left meniscal injury. She has been using ice and NSAIDs. No improvement X-ray was negative Continue NSAIDs & Ice. Relative rest; knee brace at work but take off at home. Will refer to ortho Orders: Referrals Orthopedics Referral M25.561 - Pain in right knee
[2024-08-27 15:42] VITALS: BP 136/71; PULSE 81; RESP 16; TEMP 36.9; O2SAT 100
== END 2024-08-27 16:19 | disposition home or self-care (01) ==
LOC: HO.HMCFM 15:32
PROVIDERS: PCP Family Medicine; Visit Provider Family Medicine
DX: M25.569 Pain in unspecified knee (principal)

== ENCOUNTER → 2024-08-27 15:31 | Outpatient (BNVA) | payer OTHER, SELFPAY | PROVIDERS: PCP Family Medicine; Visit Provider Family Medicine | DX: M25.561 Pain in right knee (principal) | CPT/HCPCS: 99212 ==

== ENCOUNTER 2024-09-16 13:15 | Outpatient (AMB) | payer OTHER, SELFPAY ==
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
[2024-09-16 13:17] VITALS: BP 100/62; PULSE 93; O2SAT 100; BMI 29.6
== END 2024-09-16 13:47 | disposition home or self-care (01) ==
LOC: HO.HPSW 13:15
PROVIDERS: PCP Family Medicine; Referring Provider Nurse Practitioner Family; Visit Provider Nurse Practitioner Family
DX: J45.20 Mild intermittent asthma, uncomplicated (principal)
CPT/HCPCS: 99204

== ENCOUNTER → 2024-09-16 13:15 | Outpatient (BNVA) | payer OTHER, SELFPAY | PROVIDERS: PCP Family Medicine; Referring Provider Nurse Practitioner Family; Visit Provider Nurse Practitioner Family | DX: J45.20 Mild intermittent asthma, uncomplicated (principal); Z79.51 Long term (current) use of inhaled steroids; Z77.090 Contact with and (suspected) exposure to asbestos | CPT/HCPCS: 99202 ==

== ENCOUNTER 2024-10-09 12:05 | Outpatient (REF) | payer OTHER, SELFPAY ==
--- NOTE | ~2024-10-09 | XR_ITS ---
EXAMINATION: XR KNEE, RIGHT CLINICAL INFORMATION: M25.561 - Pain in right knee COMPARISON: July 24, 2024 TECHNIQUE: [place] view of the right knee. FINDINGS: Joint spaces preserved without incongruence or abnormal tilt. XR/XR knee RT 1V IMPRESSION: Unremarkable patellofemoral joint. Electronically signed by: Reed Barber MD 10/09/2024 01:48 PM EDT
== END 2024-10-09 12:06 | disposition home or self-care (01) ==
LOC: HO.HOSX 12:05
PROVIDERS: Visit Provider Physician Assistant
DX: M94.261 Chondromalacia, right knee (principal); M23.91 Unspecified internal derangement of right knee; M17.11 Unilateral primary osteoarthritis, right knee; M25.561 Pain in right knee
CPT/HCPCS: 73560; 99202

== ENCOUNTER 2024-10-09 12:43 | Outpatient (AMB) | payer OTHER, SELFPAY ==
--- NOTE | 2024-10-09 13:07 | MHC.OFFVIS ---
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 Patient was seen by [facility] walk in clinic for a right knee injury after she lifted a heavy box, turned around and heard a pop. She followed up with PCP who referred to orthopedics. Today patient reports her pain has improved since her visit with PCP, however she does have pain with certain activities. Her pain presents with walking long distance, getting up from a squatting position, stating feels at if her knee will give out. She has to sleep on the left side with her knee bent. 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 She states she was lifting a heavy box when she was in a bending position and went to stand and felt a pop in her knee. She had immediate discomfort along the medial aspect of the knee but also fell it was deep inside the joint. She states the pain has somewhat improved however she continues to have limitations with activities such as deep bending twisting or pivoting. She has had to alter certain activities to avoid worsening her pain. 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 Current occupational exposures/hazards: Yes Cognitive needs: No Hearing needs: No Vision needs: No Review of Systems Const All systems reviewed & are unremarkable except as noted in HPI and below Physical Exam Vital Signs: BMI result Body Mass Index 29.6 Const General: cooperative and no acute distress Orientation/consciousness: patient oriented x3 Resp Effort & Inspection: normal respiratory effort and able to speak in complete sentences Cardio Peripheral pulses: Peripheral pulses 2+ throughout Neuro General: patient oriented x3 Extrem Other: Right knee is normal to inspection she has no effusion. Mild tenderness with patellar grind. Point tenderness to the medial joint line and a positive Robert's. Calf supple and nontender neurovascularly intact. Results Reviewed Results Reviewed: X-rays of the right knee obtained in the office today and reviewed by me do show a mild patellar tilt Assessment & Plan Assessment & Plan (1) Chondromalacia, right knee: Code(s): M94.261 - Chondromalacia, right knee Category: Medical (2) Internal derangement of right knee: Code(s): M23.91 - Unspecified internal derangement of right knee Category: Medical Plan Given her symptoms and the clinical exam and limitations with daily activities an MRI of the right knee has been ordered to further evaluate the source of her pain. I explained to the patient the process for the MRI and once the hospital contact her for an appointment and she has the MRI I will call her once the results are obtained by our office to discuss the next step. The patient does express understanding and will see me back after the scan. Orders: Orders XR knee RT 1V Today M25.561 - Pain in right knee MR knee RT wo con Today M17.11 - Unilateral primary osteoarthritis, right knee Coding Level of Care Code New Pt Level 3 (21108) Complex EM visit Add On G2211 Diagnoses Chondromalacia, right knee M94.261 Internal derangement of right knee M23.91
[2024-10-09 13:13] VITALS: BMI 29.6
== END 2024-10-09 13:55 | disposition home or self-care (01) ==
LOC: HO.HOS 12:43
PROVIDERS: PCP Family Medicine; Visit Provider Physician Assistant
DX: M94.261 Chondromalacia, right knee (principal); M23.91 Unspecified internal derangement of right knee
CPT/HCPCS: 99203; G2211

== ENCOUNTER → 2024-10-09 12:58 | Outpatient (BNV) | payer OTHER, SELFPAY | PROVIDERS: Visit Provider Radiology Diagnostic Radiology | DX: M25.561 Pain in right knee (principal) | CPT/HCPCS: 73560 ==

== ENCOUNTER → 2024-11-29 10:46 | Outpatient (BNV) | payer OTHER, SELFPAY | PROVIDERS: PCP Family Medicine; Visit Provider Radiology Diagnostic Radiology | DX: S83.411A Sprain of medial collateral ligament of right knee, initial encounter (principal) | CPT/HCPCS: 73721 ==

== ENCOUNTER 2024-11-29 11:07 | Outpatient (REF) | payer OTHER, SELFPAY | END 2024-11-29 11:08 | disposition home or self-care (01) | LOC: HO.MRI 11:07 | PROVIDERS: PCP Family Medicine; Visit Provider Physician Assistant | DX: M17.11 Unilateral primary osteoarthritis, right knee (principal) | CPT/HCPCS: 73721 ==

== ENCOUNTER 2024-12-15 12:36 | Outpatient (AMB) | payer OTHER, SELFPAY ==
--- NOTE | 2024-12-15 13:01 | A.OFFPC_ITS ---
Vital Signs 12/15/24 13:08 Height 5 ft 7 in Weight 195 lb BMI 30.5 BP 105/68 Blood Pressure Location Lt brachial Position Sitting Respiration 12 Pulse 79 Pulse Source Pulse Oximeter Temp 97.2 F Temp Source Oral Pulse Oximetry (%) 99 Oxygen Delivery Method Room Air Intake Visit Reasons: follow-up asthma Intake Note: Follow up on asthma. Customer Operations Specialist Required: No Allergies acetaminophen (From Vicodin) Allergy (Mild, Verified 12/15/24 13:17) Rash hydrocodone (From Vicodin) Allergy (Mild, Verified 12/15/24 13:17) Rash Penicillins Allergy (Verified 12/15/24 13:17) Hallucinations meloxicam Adverse Reaction (Mild, Verified 12/15/24 13:17) nightmares Medication List - Last Reconciled 12/15/24 by Mague Doss [facility]- albuterol sulfate 90 mcg/actuation 2 puffs inhalation Q4H PRN cetirizine 10 mg PO DAILY fluticasone propionate 50 mcg/actuation 1 inh inhalation BID montelukast 10 mg PO DAILY Tobacco use date assessed: 12/15/24 Dental Screening Dental Screen Date: 08/27/24 Did you have a dental visit in the last 12 months?: Yes Did you have a dental problem in the last 6 months where you did not have access to dental care?: No Was dental information given to patient?: Patient has dentist HPI HPI Comments History of Present Illness Details 39 y/o F with Mild/Moderate asthma, Oleg rgies. Heart Murmur, Palpitations, lumbar disc herniation, Obesity, Current Vape Use SurgHx: L knee meniscus 2010. Dev Septum Nasal surgery. FHx: Sister Juan Francisco P White syndrome. Dad: Seizures. GM: Thyroid. SocHx: Quit Cigs 2014 and still Vapes, EtOH 1-2 beers on a Fri or Sat. No drugs Health Maintenance Tdap UTD Flu 12/15/24 Pap last one 2 years ago, normal History of Present Illness The patient is a 39-year-old female presenting for a routine follow-up of her asthma. Asthma: - Her current medications for asthma and allergies include albuterol, cetirizine, fluticasone, and montelukast. - A recent pulmonology consult recommend ed taking her medications routinely rather than on an as-needed basis. - She reports inconsistent use of her fl uticasone inhaler but is adherent with her cetirizine and montelukast. - Pulm consult note reviewed. She is due for a f/u appt Allergic Rhinitis: - The patient reports that her allergies have been severe recently. - She takes cetirizine daily and has bee n taking an extra dose on about half of the days for the last couple of months, which is sometimes helpful. - She has previously used a fluticasone (Flonase) nasal spray, which she found somewhat helpful . Will be retiring from [employer]; needs documentation of her health conditions: Sleep Disturbance: - The patient has a history of sleeping problems, sometimes documented as insomnia, and she underwent a sleep study in 2016. - She reports waking up every night, olinda etimes more than once, and has been told that she snores and occasionally sounds like she is choking. - She is interested in a repeat sleep st udy to investigate for sleep apnea. Acute Stress Disorder: - [facility] event that occurred in June, which was initially diagnosed as acute stress disorder. - She is seeking a referral to a local [facility] provider for both talk therapy and diagnostic clarification. Tobacco Use: - The patient reports that she vapes and wants to quit. Past Medical History - Asthma - Allergies - History of insomnia with a sleep study performed in 2015 - Acute stress disorder, diagnosed after an event in June - Past pulmonary function test with an a bnormal finding - Past chest X-ray reported as normal by pulmonology Review of Systems - Respiratory: Reports that her asthma i s okay, but allergies have been bothersome lately. - Sleep: Reports waking every night, olinda etimes more than once. Notes that she has been told she snores and makes choking sounds in her sleep. - Psychiatric: Reports ongoing distress from a past event and has a history of acute stress disorder. Reports a fear of needles. Physical Exam General: Well developed, well nourished, in no acute distress. Appears stated age. Head: Normocephalic, atraumatic. Eyes: Pupils are equal, round and reactive to light and accommodation. Conjuncti vae are clear. Vision grossly normal. Lungs: Clear to auscultation bilaterally. No rales, rhonchi or wheeze noted. Good air flow in all sandhu. Heart: Regular rate and rhythm. No murmurs, click, rubs or gallops are noted. Pulses: Peripheral pulses are equal and palpable bilaterally. Extremities: No clubbing, cyanosis nor edema is noted. Psych: Mood and affect appropriate. Reports history of insomnia and acute stress disorder. Referred for further evaluation and counseling. Results - Imaging: The patient reports she had a chest x-ray, and pulmonology informed her that the results looked good. I cant see these results. - Tests and Diagnostics: A past pulmonar y function test had a finding that prompted the chest x-ray. Medical Decision Making The patient is a 39-year-old female here for a routine asthma follow-up. Her asthma appears stable, but her symptoms are affected by poorly controlled allergic rhinitis. She has been taking an extra dose of cetirizine, which is safe and provides some relief. To improve allergy control, I am prescribing azelastine nasal spray (not covered by insurance so changed to Ipatropium) to be used in conjunction with fluticasone nasal spray, addressing both the histamine response and inflammation. Regarding her asthma management, she is inconsistent with her daily fluticasone inhaler, which goes against the recent recommendation from her precision lens technician. I have refilled both her albuterol and fluticasone inhalers to ensure she has them available and encouraged adherence to the prescribed regimen. The patient also raised concerns about sleep disturbances, including partner- reported snoring and choking sounds, which are suspicious for obstructive sleep apnea. Given her history of a sleep study in 2016 and ongoing symptoms, a referral to a sleep specialist for a comprehensive evaluation is appropriate. She has a history of acute stress disorder and is actively seeking local behavioral health services for both diagnostic evaluation and talk therapy. A dual referral to our Community Health Navigator was placed to facilitate finding a single group that can provide both services. Finally, the patient reports vaping and expressed a desire to quit. I have referred her to our certified smoking cessation nurse for counseling and support. The patient received her influenza vaccine today and was reminded to schedule her annual physical in April. Plan 1. Asthma - Renewed prescriptions for both the alb uterol rescue inhaler and the fluticasone maintenance inhaler. - Counseled patient on the importance of using the fluticasone inhaler daily, as recommended by her precision lens technician, rather than only as needed. 2. Allergic Rhinitis - Advised that taking cetirizine twice a day is a safe option when symptoms are severe. - Prescribed Ipratropium nasal spray to use as needed for allergy symptoms, with the option for daily use during peak season. 3. Sleep Disturbance - Placed a referral to a sleep medicine specialty group for evaluation of sleep- disordered breathing/sleep apnea. - Patient will be contacted by the [facility] to schedule an intake appointment after insurance authorization is complete. 4. Acute Stress Disorder - Placed a referral to the [facility] Navigator to find a local behavioral health provider for both counseling and psychiatric evaluation for diagnostic clarification. - Patient advised she should expect a ca ll from the office in approximately two weeks with information on the referred provider. 5. Tobacco Use (Vaping) - Placed a referral to the office's [facility] smoking/vaping cessation nurse counselor. - Patient advised she will receive a jez l from the nurse to schedule a counseling session. 6. Health Maintenance - Administered influenza vaccination dur ing the visit. - Advised patient that she is due for [facility] annual physical exam in April and to schedule an appointment. Patient Instructions - Take your fluticasone inhaler every da y for your asthma as prescribed. - It is okay to take a second dose of ce tirizine (Zyrtec) on days when your allergies are severe. - You will receive a new prescription fo r azelastine nasal spray. Use it as needed for allergies, or daily during your allergy season. - You will get a phone call from a sleep specialist's office to schedule an appointment to evaluate your sleep problems. - Our office will call you in about two weeks to connect you with a local mental health provider. - You will receive a call from our nurse , Amparo, to set up vaping cessation counseling. - Please make sure to schedule your vick al physical exam, which is due in April. Consent The patient verbally consented to receive the influenza vaccine during the visit. Patient was informed and verbally consented to the use of an ambient scribe for clinic note documentation during this visit. Total time spent caring for the patient today was 30 minutes. This includes time spent before the visit reviewing the chart, time spent during the visit, and time spent after the visit on documentation, reviewing laboratory results, diagnostic imaging, medications, performing a medically necessary evaluation, counseling on diagnoses, care coordination, ordering appropriate tests, ordering appropriate medications, review of tests performed by other providers, reporting test results with the patient, communication with other healthcare providers. [facility] Medical History (Updated 12/15/24 @ 13:34 by Mague Doss, 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 Current occupational exposures/hazards: Yes Cognitive needs: No Hearing needs: No Vision needs: No Questionnaire Thrive Questionnaire Date Thrive assessed: 04/24/24 I am a: Patient What is your living situation today?: I have a steady place to live Within the past 12 months, did the food you bought not last and you didn't have the money to get more?: Never true Within the past 12 months, did you worry whether your food would run out before you got money to buy more?: Never true Do you have trouble paying for medicines?: No Do you have trouble getting transportation to medical appointments?: No Do you have trouble paying your heating and electricity bill?: No Do you have trouble taking care of your child, family member or friend?: No Do you have trouble with day-to-day activities such as bathing, preparing meals, shopping, managing finances, etc.?: No Are you currently unemployed and looking for a job?: No Are you interested in more education?: No Please select the resources that you would like help with: None Currently or been in a relationship where the following occur: No concerns reported THRIVE Score: 0 ERIC-7 AMB Questionnaire ERIC-7 Date ERIC - 7 assessed: 04/24/24 Source: Developed by Drs. Raymundo Fleming, Hilary Abebe, Varun Bravo and colleagues, with an educational louise from [employer]. ACT Questionnaire In the past 4 weeks, how much of the time did your asthma keep you from getting as much done at work, school or at home?: A little of the time During the past 4 weeks, how often have you had shortness of breath?: 1-2 times a week During the past 4 weeks, how often did your asthma symptoms wake you up at night or earlier than usual in the morning?: 4 or more nights a week (patient does not know if his regarding this that she wakes up ) During the past 4 weeks, how often have you had to use your rescue inhaler or nebulizer medication?: Once a week or less How would you rate your asthma control during the past 4 weeks?: Somewhat controlled ACT Interpretation: Positive ACT Branch: New medication Score: 16 Physical exam (Primary Care) Vital Signs: Last Vital Signs Temp 97.2 F 12/15/24 13:08 Pulse 79 12/15/24 13:08 Resp 12 12/15/24 13:08 BP 105/68 12/15/24 13:08 Pulse Ox 99 12/15/24 13:08 Oxygen Delivery Method Room Air 12/15/24 13:08 BMI result Body Mass Index 30.5 BMI Assessment/Plan discussion: High BMI High, discussed plan: lifestyle Tobacco/Smoking Status: Tobacco use Status Tobacco use date assessed 12/15/24 12/15/24 13:04 Patient Tobacco Use Status Former Tobacco user 12/15/24 13:04 e-Cigarette/Vaping Use Currently Using 12/15/24 13:04 Tobacco cessation counseling provided: Yes Items discussed: Other Relapse Prevention: discussed the importance of a supportive environment, discussed extending NRT, discussed negative mood or depression after quitting, weight gain after smoking is common and discussed dietary, exercise and/or lifestyle changes Number of minutes spent counselin CPT code: 17924 - 4-10 Minutes Thrive Assessment: Date of Thrive Assessment Date Thrive assessed 04/24/24 12/15/24 13:04 Currently or been in a relationship where the following occur: No concerns reported Office Procedures Flu Questionnaire Does the patient have a severe egg allergy?: No Does the patient have severe life threatening allergies?: No Does the patient have a fever or illness today?: No Has the patient ever had Guillain-[place] Syndrome?: No Has the patient ever had any past reaction to a flu shot?: No Immunizations Fluarix [id number] (PF) 45 mcg (15 mcg x 3)/0.5 mL IM syringe Performing Provider: TANISHA Guerrero Performing Location: [facility] [place] [facility] [place] [facility] Administered by: Demian Fishman MA on 12/15/24 13:39 Dose Route Admin Location Dispensed Lot Number Expiration Date NDC Program Evaluation Consultant 0.5 mL IM Right Deltoid 0.5 mL [id number] 08/18/25 [id number] [employer] VIS Given Date VIS Provided VIS Publication Date 12/15/24 Single Vaccine 24 Eligibility Eligibility Date Funding Source Not [facility] Eligible 12/15/24 Private Coding Level of Care Code Est Pt Level 4 (19555) Complex EM visit Add On G2211 Diagnoses Mild intermittent asthma without complication J45.20 Asthma severity: mild Asthma persistence: intermittent Asthma complication type: uncomplicated Vapes nicotine containing substance Z72.0 Environmental allergies Z91.09 Trouble in sleeping G47.9 Stress reaction F43.0 Influenza vaccination administered at current visit Z23 Obesity (BMI 30-39.9) E66.9 Additional Codes Asthma Control Questionnaire - ACT Interpretation: Positive ([id number]) Vital Signs *Quality* - CPT code: 72455 - 4-10 Minutes ([id number]) Assessment & Plan Assessment & Plan (1) Asthma: Code(s): J45.909 - Unspecified asthma, uncomplicated Category: Medical Qualifiers: Asthma severity: mild Asthma persistence: intermittent Asthma complication type: uncomplicated Qualified Code(s): J45.20 - Mild intermittent asthma, uncomplicated (2) Vapes nicotine containing substance: Code(s): Z72.0 - Tobacco use Category: Social Hx (3) Environmental allergies: Code(s): Z91.09 - Other allergy status, other than to drugs and biological substances Category: Medical (4) Trouble in sleeping: Code(s): G47.9 - Sleep disorder, unspecified Category: Medical (5) Stress reaction: Code(s): F43.0 - Acute stress reaction Category: Medical (6) Influenza vaccination administered at current visit: Onset Date: ~12/15/24 Code(s): Z23 - Encounter for immunization Category: Medical (7) Obesity (BMI 30-39.9): Code(s): E66.9 - Obesity, unspecified Category: Medical Plan . Orders: Orders Influenza [id number] Immunization Today Z23 - Encounter for immunization Referrals Sleep Medicine Referral G47.9 - Sleep disorder, unspecified Nurse Navigator Referral F41.1 - Generalized anxiety disorder, F43.0 - Acute stress reaction Nurse Navigator Referral Z72.0 - Tobacco use Medications: New azelastine (Astepro Allergy) administer into each nostril 1 spray intranasal BEDTIME 90 mL 2RF Refilled albuterol sulfate 90 mcg/actuation 2 puffs inhalation Q4H PRN 6.7 grams 2RF wheezing fluticasone propionate 50 mcg/actuation 1 inh inhalation BID 60 ea 2RF
[2024-12-15 13:08] VITALS: BP 105/68; PULSE 79; RESP 12; TEMP 36.2; O2SAT 99; BMI 30.5
== END 2024-12-15 13:42 | disposition home or self-care (01) ==
LOC: HO.HMCFM 12:37
PROVIDERS: PCP Family Medicine; Visit Provider Nurse Practitioner Family
DX: J45.20 Mild intermittent asthma, uncomplicated (principal); Z72.0 Tobacco use; Z91.09 Other allergy status, other than to drugs and biological substances; G47.9 Sleep disorder, unspecified; F43.0 Acute stress reaction; Z23 Encounter for immunization; E66.9 Obesity, unspecified

== ENCOUNTER → 2024-12-15 12:36 | Outpatient (BNVA) | payer OTHER, SELFPAY | PROVIDERS: PCP Family Medicine; Visit Provider Nurse Practitioner Family | DX: J45.20 Mild intermittent asthma, uncomplicated (principal); G47.9 Sleep disorder, unspecified; Z91.09 Other allergy status, other than to drugs and biological substances; Z72.0 Tobacco use; F43.0 Acute stress reaction; E66.9 Obesity, unspecified; Z23 Encounter for immunization | CPT/HCPCS: 90471; 90656; 96160; 99212 ==

== ENCOUNTER 2025-01-12 08:32 | Outpatient (AMB) | payer OTHER, SELFPAY ==
--- NOTE | 2025-01-12 08:34 | MHC.OFFVIS ---
Vital Signs 01/12/25 08:35 Height 5 ft 7 in Weight 182 lb 2 oz BMI 28.5 BP 122/84 Blood Pressure Location Rt brachial Position Sitting Pulse 95 Pulse Source Pulse Oximeter Pulse Oximetry (%) 99 Oxygen Delivery Method Room Air Intake Visit Reasons: INP-Sleep Disorder Intake Note: Patient presents [facility] Sleep Disorder. The patient has a history of sleeping problems, sometimes documented as insomnia, and she underwent a sleep study in 2016. She reports waking up every night, sometimes more than once, and has been told that she snores and occasionally sounds like she is choking. She is interested in a repeat sleep study to investigate for sleep apnea. Patient states hard time falling/staying asleep. Snoring/apnea/gasping. Goes to bed at 10-11pm wakes up at 7am. Wakes 2-3times a night. No naps. Headache sometimes go away. Last sleep study was in [place]. Accompanied by: Self / Same As Patient Allergies acetaminophen (From Vicodin) Allergy (Mild, Verified 01/12/25 08:39) Rash hydrocodone (From Vicodin) Allergy (Mild, Verified 01/12/25 08:39) Rash Penicillins Allergy (Verified 01/12/25 08:39) Hallucinations meloxicam Adverse Reaction (Mild, Verified 01/12/25 08:39) nightmares HPI Comments Details: 39 year old female is a new pt referral for an evaluation of SIMON. Pt. 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 For years now she has trouble falling asleep, does not like to take meds and staying asleep is harder. She goes to bed at 10 wakes up at 7am. She has multiple arousals at night due to snoring, gasping for air, and choking sound which wakes her up. She has morning headaches with dull pain, which lasts all day on and off. She has bilateral temporal headaches radiating to the neck, with sensitivity to light and sounds will wear sunglasses indoor. She is a mouth breather, has allergies and asthma is well managed. She has gait issues due to a bulging, L4/L5 disc and l. sided sharp, radiating pain, with sciatica. She was diagnosed with l. sided myalgia paresthetica. She has tried PT several times over the years. She has tried Gabapentin, w/ s/e of nightmares, and then tried Lyrica which dulled her pain, both were ineffective. She thinks her strides are good, though balances her weight unevenly to guard her l. foot as it will give out due to bilateral mcl tears. She vapes nicotine, uses alcohol 2-3 drinks weekly and socially. Denies RLS symptoms. Denies n/v, parasomnias. FH + Varner Parkinsons White Syndrome Sister 34 years old, h/o ablation. FH + dad seizure disorder. Mom denies. 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 Current occupational exposures/hazards: Yes Cognitive needs: No Hearing needs: No Vision needs: No Physical Exam Vital Signs: Last Vital Signs Pulse 95 01/12/25 08:35 BP 122/84 01/12/25 08:35 Pulse Ox 99 01/12/25 08:35 Oxygen Delivery Method Room Air 01/12/25 08:35 BMI result Body Mass Index 28.5 Const General: cooperative, comfortable and no acute distress Nutritional Appearance: average body habitus Orientation/consciousness: patient oriented x3 HEENT Face and sinus: Yes face symmetric Teeth and gingiva: other (mallampti score is 3) Eyes Pupils: Equal, round and reactive pupils present Resp Effort & Inspection: normal respiratory effort and able to speak in complete sentences Neuro Other: limited neck rom to the left and on extension General: patient oriented x3 and moves all extremities Cranial nerves: Yes Equal, round and reactive pupils present, Yes Normal accommodation reflex present, Yes Normal facial strength present, Yes Midline tongue present and Yes Ability to bilaterally elevate shoulders present Cognition (Neuro): normal cognition Motor exam (neuro): 5/5 motor strength present throughout and Normal motor muscle tone present throughout Psych Appearance: grossly normal Mental Status: mental status grossly normal Thought process: Normal thought process present Thought content: Normal thought content present Assessment & Plan Assessment & Plan (1) Excessive daytime sleepiness: Code(s): G47.19 - Other hypersomnia Category: Medical (2) Loud snoring: Code(s): R06.83 - Snoring Category: Medical (3) Deviated nasal septum: Code(s): J34.2 - Deviated nasal septum Category: Medical (4) Low back pain: Code(s): M54.50 - Low back pain, unspecified Category: Medical Qualifiers: Back pain laterality: left Chronicity: chronic Sciatica laterality: sciatica of left side Sciatica presence: with sciatica Qualified Code(s): M54.42 - Lumbago with sciatica, left side; G89.29 - Other chronic pain Plan HST to r/o SIMON Deviated Septum snoring, will correct with cpap if possible, then f/u with ENT in the future if not corrected. Pt. has been to PT for l. sided Myalgia Paresthetica and L4/L5 lower extremity disc bulging pain. RlS will monitor. Labs will r/o deficiencies. F/U in 3 months. Orders: Orders RT home sleep study Today G47.19 - Other hypersomnia Patient Instructions: Please complete the following fasting labs to rule out deficiencies. CBC/CMP/ B12/ Vit D/ TSH/ Homocysteine and MMA/ Ferritin. PT if warranted and pt is amenable, or Nerve blocks or trigger point injections for L5/S1 pain with pain management. Sleep Hygiene provided: set a scheduled bedtime and wake time to help regulate the circadian rhythm and balance the release of pituitary hormones. Sleep in a dark room, temperatures below 68 degrees, and no devices n bed. Limit caffeinated products 6 hours prior to bed, and limit fluids 2-4 hours prior to bed. Gentle night yoga, diffusing essential oils, and playing soft music can be relaxing. Coding Level of Care Code New Pt Level 4 (96208) Diagnoses Excessive daytime sleepiness G47.19 Loud snoring R06.83 Deviated nasal septum J34.2 Chronic left-sided low back pain with left-sided sciatica M54.42; G89.29 Back pain laterality: left Chronicity: chronic Sciatica laterality: sciatica of left side Sciatica presence: with sciatica Sleep Questionnaire Difficulty falling asleep: Yes Difficulty staying asleep?: Yes Number of arousals: 2-3 Snoring: Yes Witnessed apneas: Yes Gasping arousals: Yes Nocturia: No GERD: No Vivid dreams: Yes Acting out dreams: No Abnormal behavior in sleep: Yes (sleep talking) Abnormal movements in sleep: No Morning headaches: Yes Excessive daytime sleepiness: Yes Daytime naps: No Restless legs: No Hallucinations: No Sleep paralysis: No Drop attacks: No Sleep Study: Yes CPAP: No
[2025-01-12 08:35] VITALS: BP 122/84; PULSE 95; O2SAT 99; BMI 28.5
== END 2025-01-12 09:12 | disposition home or self-care (01) ==
LOC: HO.HSMS 08:33
PROVIDERS: PCP Family Medicine; Visit Provider Physician Assistant Medical
DX: G47.19 Other hypersomnia (principal); R06.83 Snoring; J34.2 Deviated nasal septum; M54.42 Lumbago with sciatica, left side; G89.29 Other chronic pain
CPT/HCPCS: 99204

== ENCOUNTER → 2025-01-12 08:32 | Outpatient (BNVA) | payer OTHER, SELFPAY | PROVIDERS: PCP Family Medicine; Visit Provider Physician Assistant Medical | DX: G47.19 Other hypersomnia (principal); R06.83 Snoring; J34.2 Deviated nasal septum; M54.42 Lumbago with sciatica, left side; G89.29 Other chronic pain; Z91.85 Personal history of military service | CPT/HCPCS: 99202 ==

== ENCOUNTER 2025-02-09 14:01 | Outpatient (AMB) | payer OTHER, SELFPAY ==
[2025-02-09 15:10] VITALS: BP 120/70; PULSE 110; O2SAT 99; BMI 30.2
--- NOTE | 2025-02-09 15:10 | MHC.OFFWIV ---
Intake Vital Signs 02/09/25 15:10 Height 5 ft 7 in Weight 193 lb BMI 30.2 BP 120/70 Blood Pressure Location Lt brachial Position Sitting Pulse 110 H Pulse Source Pulse Oximeter Pulse Oximetry (%) 99 Oxygen Delivery Method Room Air Intake Visit Reasons: EP extreme lower back Intake Note: Patient presents c/o low back pain related to bulging disc (known for 8-9 years). Got bad yesterday- constant pain, sharp pain radiates down left thigh to knee. Patient Tobacco Use Status: Former Tobacco user Allergies acetaminophen (From Vicodin) Allergy (Mild, Verified 02/09/25 15:14) Rash hydrocodone (From Vicodin) Allergy (Mild, Verified 02/09/25 15:14) Rash Penicillins Allergy (Verified 02/09/25 15:14) Hallucinations meloxicam Adverse Reaction (Mild, Verified 02/09/25 15:14) nightmares HPI HPI Comments History of Present Illness Details 39-year-old female presents to the walk-in clinic with complaints of acute on chronic low back pain. Patient reports a known history of a bulging disc diagnosed approximately 8?9 years ago, for which she was advised to undergo back surgery at that time but declined due to fear of surgery. She states that over the past 2 days, her back pain has significantly worsened. Pain is described as constant, sharp, and radiating down the left thigh. She reports associated numbness and tingling in the left lower extremity. Patient denies bowel or bladder dysfunction, saddle anesthesia, or lower extremity weakness. She does report one episode of urinary incontinence, which she attributes to severe pain rather than loss of bladder control. No recent trauma reported. 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 Current occupational exposures/hazards: Yes Cognitive needs: No Hearing needs: No Vision needs: No Review of Systems Const All systems reviewed & are unremarkable except as noted in HPI and below Physical Exam Vital Signs: Last Vital Signs Pulse 110 H 02/09/25 15:10 BP 120/70 02/09/25 15:10 Pulse Ox 99 02/09/25 15:10 Oxygen Delivery Method Room Air 02/09/25 15:10 BMI result Body Mass Index 30.2 Const General: no acute distress; No comfortable Nutritional Appearance: obese Orientation/consciousness: patient oriented x3 Back/Spine/Pelvis Other: Decreased range of motion of the lumbar spine due to pain. Tenderness to palpation over lower lumbar region. Thoracic/Lumbar Spine: pain with thoraco-lumbar ROM and lumbar spinal tenderness Neuro Other: Sensation: Subjective numbness/tingling to left thigh Strength: Grossly intact in bilateral lower extremities Gait: Antalgic due to pain. General: patient oriented x3 and moves all extremities Assessment & Plan Assessment & Plan (1) Low back pain: Code(s): M54.50 - Low back pain, unspecified Qualifiers: Chronicity: chronic Back pain laterality: left Sciatica presence: with sciatica Sciatica laterality: sciatica of left side Qualified Code(s): M54.42 - Lumbago with sciatica, left side; G89.29 - Other chronic pain Plan: NSAIDs for pain and inflammation Muscle relaxant as needed for muscle spasm Short course of oral corticosteroids for radicular symptoms. Avoid heavy lifting, bending, and twisting Encourage gentle activity as tolerated. Discussed warning signs including worsening weakness, true bowel or bladder incontinence, saddle anesthesia, or increasing numbness ? patient advised to seek immediate ED care if these occur Patient verbalized understanding. Orders: Orders PT Evaluation and Treatment Today G89.29 - Other chronic pain, M54.42 - Lumbago with sciatica, left side Medications: New diclofenac potassium 50 mg PO BID 14 tabs 0RF 7 days G89.29 - Other chronic pain, M54.42 - Lumbago with sciatica, left side cyclobenzaprine 10 mg PO BEDTIME 20 tabs 0RF G89.29 - Other chronic pain, M54.42 - Lumbago with sciatica, left side prednisone 20 mg PO DAILY 10 tabs 0RF 10 days G. - Other chronic pain, M54.42 - Lumbago with sciatica, left side Coding Level of Care Code Est Pt Level 4 (68700) Diagnoses Chronic left-sided low back pain with left-sided sciatica M54.42; G89.29 Chronicity: chronic Back pain laterality: left Sciatica presence: with sciatica Sciatica laterality: sciatica of left side Time Spent (min) 20
== END 2025-02-09 16:27 | disposition home or self-care (01) ==
PROVIDERS: PCP Family Medicine; Visit Provider Nurse Practitioner Family
DX: M54.42 Lumbago with sciatica, left side (principal); G89.29 Other chronic pain

== ENCOUNTER → 2025-02-09 14:01 | Outpatient (BNVA) | payer OTHER, SELFPAY | PROVIDERS: PCP Family Medicine; Visit Provider Nurse Practitioner Family | DX: M54.42 Lumbago with sciatica, left side (principal); G89.29 Other chronic pain | CPT/HCPCS: 99212 ==